=== PATIENT | female | born 1960 | race Caucasian/White ===

== ENCOUNTER → 2017-03-14 12:44 | Outpatient (CLI) | payer MEDICARE, SELFPAY ==
[2017-03-14 22:40] LABS: Alanine Aminotransferase 19 U/L (12-78); Albumin Level 4.4 gm/dL (3.4-5.0); Albumin/Globulin Ratio 1.2 (1.1-1.8); Alkaline Phosphatase 60 U/L (46-116); Anion Gap 15.3 mEq/L (5-15); Aspartate Amino Transferase 22 U/L (15-37); Bilirubin,Total 0.4 mg/dL (0.2-1.0); Blood Urea Nitrogen 15 mg/dL (7-18); Calcium 9.2 mg/dL (8.5-10.1); Carbon Dioxide 30 mmol/L (21.0-32.0); Chloride 96 mmol/L (98-107); Chol/HDL Ratio 6.6 (1-3.5); Cholesterol 225 mg/dL (140-200); Estimated Glomerular Filt Rate 75 ml/min (>60); GFR (African American) 90 ML/MIN (>60); Globulin 3.6 gm/dl (1.3-3.2); Glucose 94 mg/dL (74-106); HDL Cholesterol 34 mg/dL (29-89); LDL Cholesterol 152 mg/dL (0-130); Potassium 4.3 mmoL/L (3.5-5.1); Sodium 137 mmol/L (136-145); Triglycerides 193 mg/dL (30-200); VLDL Cholesterol 39 mg/dL (0-40)
== END ==
PROVIDERS: PCP Nurse Practitioner Family; Visit Provider Nurse Practitioner Family
DX: I10 Essential (primary) hypertension (principal); E78.2 Mixed hyperlipidemia; E55.9 Vitamin D deficiency, unspecified
CPT/HCPCS: 36415; 80053; 80061; 82652

== ENCOUNTER → 2018-04-03 15:07 | Outpatient (CLI) | payer MEDICARE, SELFPAY ==
[2018-04-03 18:09] LABS: Alanine Aminotransferase 15 U/L (12-78); Albumin Level 3.9 gm/dL (3.4-5.0); Albumin/Globulin Ratio 1.1 (1.1-1.8); Alkaline Phosphatase 65 U/L (46-116); Aspartate Amino Transferase 17 U/L (15-37); Bilirubin,Total 0.3 mg/dL (0.2-1.0); Blood Urea Nitrogen 9 mg/dL (7-18); Calcium 9.1 mg/dL (8.5-10.1); Carbon Dioxide 31 mmol/L (21.0-32.0); Chloride 99 mmol/L (98-107); Chol/HDL Ratio 7.1 (1-3.5); Cholesterol 185 mg/dL (140-200); Creatinine,Serum 0.84 mg/dL (0.55-1.02); Estimated Glomerular Filt Rate 70 ml/min (>60); GFR (African American) 85 ML/MIN (>60); Globulin 3.4 gm/dl (1.3-3.2); Glucose 83 mg/dL (74-106); HDL Cholesterol 26 mg/dL (29-89); Sodium 139 mmol/L (136-145); Total Protein,Serum 7.3 gm/dL (6.4-8.2)
[2018-04-03 18:15] LABS: Triglycerides 401 mg/dL (30-200)
[2018-04-08 09:51] LABS: Vitamin D 25 Hydroxy 16.1 ng/mL (30.0-100.0)
== END ==
PROVIDERS: Visit Provider Nurse Practitioner Family
DX: E78.2 Mixed hyperlipidemia (principal); I10 Essential (primary) hypertension; E55.9 Vitamin D deficiency, unspecified
CPT/HCPCS: 36415; 80053; 80061; 82652

== ENCOUNTER → 2018-09-26 12:42 | Outpatient (CLI) | payer MEDICARE, SELFPAY ==
--- NOTE | 2018-09-26 12:53 | MM_ITS ---
MM Dig screening mamm BI w/CAD ORDERING PHYSICIAN : Lilia Sellers APRN PATIENT AGE: 58 years GENDER: Female COMPARISON: Bilateral mammogram February 2016. Bilateral Spot views October 2016 INDICATION: Routine screening mammogram.: fu to get back on screening schedule no hormones. No new complaints. Noncontributory family history. TECHNIQUE: Standard CC and MLO images were obtained. R2 CAD reviewed. Also actually cc view bilaterally FINDINGS: Fairly Dense breast bilaterally. Dense breast tissue most evident towards upper outer quadrant bilaterally. Mammography is of decreased sensitivity in these areas of increased breast density however we see no discrete new findings.. Overall,e pattern is stable. No significant new areas concern.. No suspicious calcifications. No dominant or suspicious mass. Areas of density on one image dissipate on another in overall appears stable and similar to previous exams . Mild asymmetry pattern appears similar to prior study Bilateral follow-up in one year recommended.. IMPRESSION: ... Dense breast pattern bilaterally decreases sensitivity of mammography However breast appears stable, with no new areas of significant concern Bilateral follow-up in one year recommended . BI-RADS Category: 2 Benign Finding(s) RECOMMENDED FOLLOW-UP: 1YR 1 YEAR FOLLOW-UP (A letter has been sent to the patient regarding results of the study.)
--- NOTE | 2018-09-26 12:54 | XR_ITS ---
XR hip RT 2-3V w/pelvis HISTORY: ITS.REASON: RT HIP PAIN ORDERING PHYSICIAN: Lilia Sellers APRN PATIENT AGE: 58 years COMPARISON: None FINDINGS: No fracture or dislocation is evident. No significant degenerative change. No lytic or blastic change. Unremarkable soft tissues IMPRESSION: Negative hip
== END ==
PROVIDERS: PCP Internal Medicine Adolescent Medicine; Visit Provider Nurse Practitioner Family
DX: M25.551 Pain in right hip; Z12.31 Encounter for screening mammogram for malignant neoplasm of breast
CPT/HCPCS: 73502; 77067

== ENCOUNTER → 2019-03-24 10:13 | Outpatient (CLI) | payer MEDICARE, SELFPAY ==
[2019-03-24 11:36] LABS: Alanine Aminotransferase 12 U/L (12-78); Albumin Level 3.9 gm/dL (3.4-5.0); Albumin/Globulin Ratio 1.4 (1.1-1.8); Alkaline Phosphatase 75 U/L (46-116); Anion Gap 11.4 mEq/L (5-15); Aspartate Amino Transferase 15 U/L (15-37); Bilirubin,Total 0.3 mg/dL (0.2-1.0); Blood Urea Nitrogen 9 mg/dL (7-18); Calcium 9.1 mg/dL (8.5-10.1); Carbon Dioxide 33 mmol/L (21.0-32.0); Chloride 98 mmol/L (98-107); Cholesterol 174 mg/dL (140-200); Creatinine,Serum 0.89 mg/dL (0.55-1.02); Estimated Glomerular Filt Rate 66 ml/min (>60); GFR (African American) 79 ML/MIN (>60); Globulin 2.8 gm/dl (1.3-3.2); Glucose 102 mg/dL (74-106); HDL Cholesterol 29 mg/dL (29-89); Potassium 4.4 mmoL/L (3.5-5.1); Sodium 138 mmol/L (136-145); Total Protein,Serum 6.7 gm/dL (6.4-8.2)
[2019-03-24 11:38] LABS: Triglycerides 469 mg/dL (30-200)
[2019-03-25 11:58] LABS: Vitamin D 25 Hydroxy 25.7 ng/mL (30.0-100.0)
== END ==
PROVIDERS: Visit Provider Nurse Practitioner Family
DX: I10 Essential (primary) hypertension (principal); E78.2 Mixed hyperlipidemia; E55.9 Vitamin D deficiency, unspecified
CPT/HCPCS: 36415; 80053; 80061; 82652

== ENCOUNTER 2019-09-28 19:20 | Observation (INO) | payer MEDICARE, SELFPAY ==
[2019-09-28] VITALS (11 sets, daily range): BP systolic 95–151; BP diastolic 68–99; PULSE 85–114; RESP 15–24; TEMP 36.8–37.1; O2SAT 85–98; BMI 20.5; BMI 23.6
--- NOTE | 2019-09-28 19:38 | XR_ITS ---
PROCEDURE: XR CHEST 2V CLINICAL HISTORY: COUGH Cough, smoker COMPARISON: No exams were available for comparison FINDINGS: The cardiomediastinal silhouette and pulmonary vascularity are within normal limits. COPD changes. Faint opacities noted in the left upper lobe and may be due to summation artifact. No lobar consolidation or collapse. No acute bony abnormalities. IMPRESSION: COPD. Possible summation densities left upper lobe. Stability may be confirmed follow-up Dictated b Aleksandr Dewitt MD 09/28/2019 22:39 Aleksandr Dewitt MD in [place] 09/28/2019 22:39
--- NOTE | 2019-09-28 19:54 | PC.NURSE ---
PATIENT SENT TO ER PER ROBBIE HINSON APRN FOR FURTHER EVALUATION. OXYGEN SAT 88-89% ON RA. REPORT GIVEN TO Ileana MANUEL RN AND Ileana GRULLON RN
--- NOTE | 2019-09-28 20:03 | PC.NURSE ---
called for a duoneb at this time.
[2019-09-28 20:05] LABS: UTC Strep Screen (Rapid) Negative (Negative)
--- NOTE | 2019-09-28 20:10 | PC.NURSE ---
pt to rad at this time.
[2019-09-28 20:39] LABS: Basophils # 0.1 K/mm3 (0-0.2); Basophils % 0.8 % (0.1-2.0); Eosinophils % 0.4 % (0.1-12.0); Hematocrit 48.9 % (37.0-47.0); Hemoglobin 16.9 g/dL (12.2-16.2); Lymphocytes # 1.6 K/mm3 (0.7-4.5); Lymphocytes % 22.9 % (10-50); Mean Corpuscular HGB Conc 34.6 g/dL (31.8-35.4); Mean Corpuscular Hemoglobin 33.2 pg (27.0-31.2); Mean Corpuscular Volume 95.9 fl (81-99); Mean Platelet Volume 7.8 fl (7.4-10.4); Monocytes # 0.5 K/mm3 (0.1-1.0); Monocytes % 7.4 % (1.7-9.3); Neutrophils # 4.7 K/mm3 (1.8-7.8); Neutrophils % 68.6 % (37.0-80.0); Platelet Count 224 K/mm3 (142-424); Red Cell Distribution Width 12.8 % (11.5-17.5); White Blood Count 6.8 K/mm3 (4.8-10.8)
[2019-09-28 20:43] LABS: Chloride 92 mmol/L (98-107); Sodium 136 mmol/L (136-145)
[2019-09-28 20:45] LABS: Blood Urea Nitrogen 10 mg/dl (7-17); Creatinine Clearance Estimated 76 mL/min (50-200); Estimated Glomerular Filt Rate 86 ml/min (>60); GFR (African American) 104 ML/MIN (>60)
[2019-09-28 20:46] LABS: Alanine Aminotransferase 15 U/L (12-78); Albumin Level 4.6 g/dl (3.5-5.0); Albumin/Globulin Ratio 1.2 (1.1-1.8); Alkaline Phosphatase 58 U/L (38-126); Aspartate Amino Transferase 32 U/L (14-36); Bilirubin,Total 0.9 mg/dl (0.2-1.3); Calcium 10.2 mg/dl (8.4-10.2); Carbon Dioxide 33 mmol/L (22.0-30.0); Globulin 3.7 g/dL (1.3-3.2); Glucose 142 mg/dl (74-100); Lactic Acid 1.9 mmol/L (0.7-2.1); Total Protein,Serum 8.3 g/dl (6.3-8.2)
--- NOTE | 2019-09-28 20:48 | HMH.EDSOB ---
ED Disposition Clinical Impression: COPD (chronic obstructive pulmonary disease) with acute bronchitis Disposition: Admitted as Observation Condition on Discharge: Good Referrals: Stanislaw Welch MD [Primary Care Provider] - - Critical Care Critical Care Time: No Attestation: On 09/28/19, the high probability of a clinically significant, sudden or life threatening deterioration of the following system(s) required my full and direct attention, intervention and personal management. The time I documented below is in addition to time spent performing reported procedures but includes the following listed in this critical care notation. Medical Decision Making - Medical Records Medical records reviewed: Yes: I reviewed the patient's medical records. - G[place]a Inquiry Pt receiving controlled substance: No Vital Signs: 09/28/19 19:41 09/28/19 20:00 09/28/19 20:20 Temperature 98.8 F Temperature Source Oral Pulse Rate 107 H Pulse Rate [Left Brachial] 113 H 114 H Respiratory Rate 24 18 Blood Pressure [Left Arm] 137/77 151/99 H Blood Pressure Mean [Left Arm] 97 116 Blood Pressure Source [Left Arm] Automatic Cuff Automatic Cuff Blood Pressure Position [Left Arm] Sitting Supine 02 Sat by Pulse Oximetry 89 L 90 L Oxygen Delivery Method Room Air Nasal Cannula Oxygen Flow Rate (LPM) 3 09/28/19 20:30 09/28/19 21:00 09/28/19 21:30 Temperature Temperature Source Pulse Rate Pulse Rate [Left Brachial] 114 H 106 H 88 Respiratory Rate 17 15 18 Blood Pressure [Left Arm] 134/91 H 95/69 L 114/68 Blood Pressure Mean [Left Arm] 105 77 83 Blood Pressure Source [Left Arm] Automatic Cuff Automatic Cuff Automatic Cuff Blood Pressure Position [Left Arm] Supine Supine Supine 02 Sat by Pulse Oximetry 87 L 86 L 85 L Oxygen Delivery Method Nasal Cannula Nasal Cannula Nasal Cannula Oxygen Flow Rate (LPM) 3 3 3 09/28/19 22:00 09/28/19 22:30 Temperature Temperature Source Pulse Rate Pulse Rate [Left Brachial] 85 92 H Respiratory Rate 18 15 Blood Pressure [Left Arm] 131/77 130/84 Blood Pressure Mean [Left Arm] 95 99 Blood Pressure Source [Left Arm] Automatic Cuff Automatic Cuff Blood Pressure Position [Left Arm] Supine Supine 02 Sat by Pulse Oximetry 85 L 85 L Oxygen Delivery Method Nasal Cannula Nasal Cannula Oxygen Flow Rate (LPM) 3 3 - Lab Data Lab results reviewed: Yes: I reviewed the patient's lab results. Lab Results 09/28/19 19:38: Strep Scn Rapid Clinic Negative 09/28/19 19:47: Chlamy pneumoniae PCR Not detected, Adenovirus (PCR) Not detected, B. pertussis DNA (PCR) Not detected, Coronavirus OC43 (PCR) Not detected, Coronavirus HKU1 (PCR) Not detected, Coronavirus 229E (PCR) Not detected, COVID-19 PCR Not detected, Coronavirus NL63 (PCR) Not detected, Human Metapneumovir PCR Not detected, Influenza A (H1) PCR Not detected, Influ A (H1N1/09) PCR Not detected, Influenza A (H3) PCR Not detected, Influenza Type A (PCR) Not detected, Influenza Type B (PCR) Not detected, M. pneumoniae (PCR) Not detected, Parainfluenza 1 (PCR) Not detected, Parainfluenza 2 (PCR) Not detected, Parainfluenza 3 (PCR) Not detected, Parainfluenza 4 (PCR) Not detected, RSV (PCR) Not detected, Entero/Rhino (PCR) Detected A 09/28/19 19:50: WBC 6.8, RBC 5.10, Hgb 16.9 H, Hct 48.9 H, MCV 95.9, MCH 33.2 H, MCHC 34.6, RDW 12.8, Plt Count 224, MPV 7.8, Neut % (Auto) 68.6, Lymph % (Auto) 22.9, [place] % (Auto) 7.4, Eos % (Auto) 0.4, Baso % (Auto) 0.8, Neut # (Auto) 4.7, Lymph # (Auto) 1.6, [place] # (Auto) 0.5, Eos # (Auto) 0.0, Baso # (Auto) 0.1 09/28/19 19:50: Sodium 136, Potassium 4.0, Chloride 92 L, Carbon Dioxide 33 H, Anion Gap 15.0, BUN 10, Creatinine 0.70, Estimated Creat Clear 76, Estimated GFR 86, Est GFR ( Amer) 104, Glucose 142 H, Calcium 10.2, Total Bilirubin 0.9, AST 32, ALT 15, Alkaline Phosphatase 58, Troponin I < 0.01, Total Protein 8.3 H, Albumin 4.6, Globulin 3.7 H, Albumin/Globulin Ratio 1.2 09/28/19 19:50: Lactate 1.9 08
[2019-09-28 20:55] LABS: NT Pro Brain Natriuretic Pep. 416 pg/mL (0-125)
[2019-09-28 20:58] LABS: Adenovirus,PCR Not Detected (NotDetected); Bordetella Pertussis Not Detected (NotDetected); Chlamydophila Pneumoniae, PCR Not Detected (NotDetected); Coronavirus 19, PCR Not Detected (NotDetected); Coronavirus 229E Not Detected (NotDetected); Coronavirus NL63 Not Detected (NotDetected); Coronavirus OC43 Not Detected (NotDetected); Coronovirus HKU1,PCR Not Detected (NotDetected); Human Metapneumovirus Not Detected (NotDetected); Influenza A, PCR Not Detected (NotDetected); Influenza AH1, 2009 Not Detected (NotDetected); Influenza AH1, PCR Not Detected (NotDetected); Influenza AH3,PCR Not Detected (NotDetected); Influenza B, PCR Not Detected (NotDetected); Mycoplasma Pneumoniae, PCR Not Detected (NotDetected); Parainfluenza 1, PCR Not Detected (NotDetected); Parainfluenza 2, PCR Not Detected (NotDetected); Parainfluenza 3, PCR Not Detected (NotDetected); Parainfluenza 4, PCR Not Detected (NotDetected); Respiratory Syncytial Virus Not Detected (NotDetected)
[2019-09-28 21:02] LABS: Troponin I < 0.01 ng/ml (0.00-0.034)
--- NOTE | 2019-09-28 21:07 | ECG_ITS ---
APPROVED REPORT Exam: Resting ECG HR:96 bpm ECG Measurements Heart Rate 96 AXES AR 136 P -3 QRSd 70 QRS 47 QT 368 T 36 QTc 464 <Conclusion> Normal sinus rhythm Normal ECG Electronically signed by : Jayesh Ivey, 09/29/2019 15:00:22
[2019-09-28 21:18] LABS: Coronavirus 19 IgG Antibody Negative (Negative); Coronavirus 19 IgM Antibody Negative (Negative)
[2019-09-28 22:33] LABS: Rhinovirus/Enterovirus Detected (NotDetected)
[2019-09-28 23:36] LABS: Troponin I < 0.01 ng/ml (0.00-0.034)
--- NOTE | 2019-09-28 23:52 | PC.NURSE ---
pt headed to the floor via wheelchair
--- NOTE | 2019-09-28 23:56 | PC.NURSE ---
patient up to floor via wheelchair.
[2019-09-29] VITALS (7 sets, daily range): BP systolic 110–136; BP diastolic 61–80; PULSE 80–100; RESP 18–20; TEMP 36.4–36.7; O2SAT 82–94
[2019-09-29 03:25] LABS: Troponin I < 0.01 ng/ml (0.00-0.034)
[2019-09-29 07:16] LABS: Chloride 101 mmol/L (98-107); Potassium 4.6 mmoL/L (3.5-5.1); Sodium 137 mmol/L (136-145)
[2019-09-29 07:19] LABS: Anion Gap 9.6 mEq/L (5-15); Basophils % 0.1 % (0.1-2.0); Blood Urea Nitrogen 12 mg/dl (7-17); Carbon Dioxide 31 mmol/L (22.0-30.0); Creatinine Clearance Estimated 123 mL/min (50-200); Eosinophils % 0.5 % (0.1-12.0); Estimated Glomerular Filt Rate 127 ml/min (>60); GFR (African American) 154 ML/MIN (>60); Hematocrit 42.9 % (37.0-47.0); Lymphocytes # 0.8 K/mm3 (0.7-4.5); Lymphocytes % 18.6 % (10-50); Mean Corpuscular Hemoglobin 33.1 pg (27.0-31.2); Mean Corpuscular Volume 97.2 fl (81-99); Mean Platelet Volume 7.8 fl (7.4-10.4); Monocytes # 0.1 K/mm3 (0.1-1.0); Monocytes % 2.2 % (1.7-9.3); Neutrophils # 3.4 K/mm3 (1.8-7.8); Neutrophils % 78.4 % (37.0-80.0); Platelet Count 181 K/mm3 (142-424); Red Blood Count 4.42 M/mm3 (4.20-5.40); Red Cell Distribution Width 12.7 % (11.5-17.5); White Blood Count 4.3 K/mm3 (4.8-10.8)
[2019-09-29 07:20] LABS: Glucose 156 mg/dl (74-100); Magnesium 1.8 mg/dl (1.6-2.3)
[2019-09-29 07:23] LABS: Calcium 8.7 mg/dl (8.4-10.2)
--- NOTE | 2019-09-29 07:38 | HMH.PHAVTE ---
[facility] Pharmacy VTE Monitoring - Patient Demographics Admission date: 09/28/19 Report Date: 09/29/19 Time: 07:38 Allergies/Adverse Reactions: Patient Allergies lansoprazole [From PREVACID] Allergy (Intermediate, Verified 09/29/19 01:12) Palpitations omeprazole [From PRILOSEC] Allergy (Intermediate, Verified 09/29/19 01:12) Palpitations Height: 1.63 m Weight: 62.823 kg Patient Problems: Current Active Problems COPD (chronic obstructive pulmonary disease) with acute bronchitis (Acute) - VTE Risk Labs: VTE Related Lab Results Hgb 16.9 g/dL (12.2-16.2) H 09/28/19 19:50 Hct 48.9 % (37.0-47.0) H 09/28/19 19:50 Plt Count 224 K/mm3 (142-424) 09/28/19 19:50 BUN 12 mg/dl (7-17) 09/29/19 06:30 Creatinine 0.50 mg/dl (0.52-1.04) L D 09/29/19 06:30 Estimated Creat Clear 123 mL/min (50-200) 09/29/19 06:30 Was VTE Risk Assessment Performed: Yes VTE Score: 4 VTE Risk Level: Low Risk - Prophylaxis VTE Prophylaxis Ordered?: Yes Types of VTE Prophylaxis: TEDS Knee High Location of Applied Device: Bilateral Lower Extremeties - VTE Diagnosis Confirmed Treatment or plan recommended: Continue Current Treatment
[2019-09-29 07:43] LABS: Hemoglobin 14.6 g/dL (12.2-16.2)
--- NOTE | 2019-09-29 08:02 | HMH.HP ---
*Admission Date: 09/28/19 *Chief complaint: cough [facility] History Medical History: Denies:: Cancer, Diabetes Mellitus Type 1, Diabetes Mellitus Type 2, MRSA *Have you ever received a pneumonia vaccine?: No *Have you received a flu vaccine this season?: No Other Medical History: Reports: Arthritis, Fibromyalgia, Hypothyroidism, Thyroid Disease Other Surgeries: Yes: Cholecystectomy, Colonoscopy, EGD Amputation: No Fractures: Yes - *Social History Last grade of school completed: 11th or 12th Smoking Status: Current every day smoker Tobacco Type: cigarettes # Packs/Day (cigarettes): 1 Alcohol Intake: never *Occupational Status:: disabled *Travel in the last 8 weeks: None Family Hx:: Cancer, Coronary Artery Disease, Diabetes, Hyperlipidemia, Hypertension, Stroke, Thyroid Disorder Review of Systems - *Neurologic Denies seizure-like activity Meds Home Medications Medication Instructions Recorded Confirmed Type Bisoprolol/Hydrochlorothiazide 1 each PO DAILY 09/29/19 09/29/19 History [Bisoprolol-Hctz 5-6.25 mg Tab] Esomeprazole Magnesium 20 mg PO HS 09/29/19 09/29/19 History Hydrocodone/Acetaminophen 1 each PO QID PRN 09/29/19 09/29/19 History [Hydrocodon-Acetaminoph 7.5-325] Meclizine HCl 25 mg PO TID 09/29/19 09/29/19 History Allergies Allergy/AdvReac Type Severity Reaction Status Date / Time lansoprazole [From PREVACID] Allergy Intermediate Palpitation Verified 09/29/19 01:12 s omeprazole [From PRILOSEC] Allergy Intermediate Palpitation Verified 09/29/19 01:12 s Exam Vital signs and Labs for Last 24 Hours: Temp Pulse Resp BP Pulse Ox 98.1 F 94 H 18 110/78 93 L 09/29/19 04:00 09/29/19 06:25 09/29/19 04:00 09/29/19 04:00 09/29/19 06:25 Laboratory Results - last 24 hr 09/28/19 19:38: Strep Scn Rapid Clinic Negative 09/28/19 19:47: Chlamy pneumoniae PCR Not detected, Adenovirus (PCR) Not detected, B. pertussis DNA (PCR) Not detected, Coronavirus OC43 (PCR) Not detected, Coronavirus HKU1 (PCR) Not detected, Coronavirus 229E (PCR) Not detected, COVID-19 PCR Not detected, Coronavirus NL63 (PCR) Not detected, Human Metapneumovir PCR Not detected, Influenza A (H1) PCR Not detected, Influ A (H1N1/09) PCR Not detected, Influenza A (H3) PCR Not detected, Influenza Type A (PCR) Not detected, Influenza Type B (PCR) Not detected, M. pneumoniae (PCR) Not detected, Parainfluenza 1 (PCR) Not detected, Parainfluenza 2 (PCR) Not detected, Parainfluenza 3 (PCR) Not detected, Parainfluenza 4 (PCR) Not detected, RSV (PCR) Not detected, Entero/Rhino (PCR) Detected A 09/28/19 19:50: WBC 6.8, RBC 5.10, Hgb 16.9 H, Hct 48.9 H, MCV 95.9, MCH 33.2 H, MCHC 34.6, RDW 12.8, Plt Count 224, MPV 7.8, Neut % (Auto) 68.6, Lymph % (Auto) 22.9, [place] % (Auto) 7.4, Eos % (Auto) 0.4, Baso % (Auto) 0.8, Neut # (Auto) 4.7, Lymph # (Auto) 1.6, [place] # (Auto) 0.5, Eos # (Auto) 0.0, Baso # (Auto) 0.1 09/28/19 19:50: Sodium 136, Potassium 4.0, Chloride 92 L, Carbon Dioxide 33 H, Anion Gap 15.0, BUN 10, Creatinine 0.70, Estimated Creat Clear 76, Estimated GFR 86, Est GFR ( Amer) 104, Glucose 142 H, Calcium 10.2, Total Bilirubin 0.9, AST 32, ALT 15, Alkaline Phosphatase 58, Troponin I < 0.01, Total Protein 8.3 H, Albumin 4.6, Globulin 3.7 H, Albumin/Globulin Ratio 1.2 09/28/19 19:50: Lactate 1.9 09/28/19 19:50: SARS-CoV-2 IgG Ab (Rapid) Negative, SARS-CoV-2 IgM Ab (Rapid) Negative 09/28/19 19:50: NT-Pro-B Natriuret Pep 416 H 09/28/19 20:38: Influenza Type A Ag Negative, Influenza Type B Ag Negative 09/28/19 22:59: Troponin I < 0.01 09/29/19 02:40: Troponin I < 0.01 09/29/19 06:30: WBC 4.3 L D, RBC 4.42, Hgb 14.6 D, Hct 42.9, MCV 97.2, MCH 33.1 H, MCHC 34.0, RDW 12.7, Plt Count 181, MPV 7.8, Neut % (Auto) 78.4, Lymph % (Auto) 18.6, [place] % (Auto) 2.2, Eos % (Auto) 0.5, Baso % (Auto) 0.1, Neut # (Auto) 3.4, Lymph # (Auto) 0.8, [place] # (Auto) 0.1, Eos # (Auto) 0.0, Baso # (Auto) 0.0 09/29/19 06:30: Sodium 137, Potassium 4.6, Chloride 101, Carbon
--- NOTE | 2019-09-29 09:08 | HMH.HPDC ---
General - General Admission date:: 09/28/19 Discharge date: 09/29/19 *Admission Date: 09/28/19 *Chief complaint: Cough, shortness of breath *History of present illness: 59-year-old female with extensive smoking history, COPD, worsening shortness of breath over the past 3 to 4 days. Presented to the ER due to flulike symptoms, shortness of breath and cough. Upon presentation was found to be mildly hypoxic with saturations 87-90 on room air. Work-up showed normal chest x-ray with no focal consolidation. Tested for black virus and was found to be negative. Respiratory panel however positive for rhino/enterovirus. Of note she had several family members with similar symptoms that got sick after her. Denies any recent travel. Continues to smoke about a pack a day. Has been out of her inhalers for over a week. Admitted for antibiotics and steroids and continued oxygen need. On exam this morning she states she is feeling a little better but still tired. Continues to require oxygen with room air saturations of 86 to 87%. Tolerating regular diet. Nebulizers helping but leave a bad taste in her mouth. Denies any fever, chest pain. Reports productive cough. [facility] History Medical History: Reports:: Chronic Obstructive Pulmonary Disease (COPD) Denies:: Cancer, Diabetes Mellitus Type 1, Diabetes Mellitus Type 2, MRSA *Have you ever received a pneumonia vaccine?: No *Have you received a flu vaccine this season?: No Other Medical History: Reports: Arthritis, Fibromyalgia, Hypothyroidism, Thyroid Disease Other Surgeries: Yes: Cholecystectomy, Colonoscopy, EGD Amputation: No Fractures: Yes - *Social History Last grade of school completed: 11th or 12th Smoking Status: Current every day smoker Tobacco Type: cigarettes # Packs/Day (cigarettes): 1 Alcohol Intake: never *Occupational Status:: disabled *Travel in the last 8 weeks: None Family Hx:: Cancer, Coronary Artery Disease, Diabetes, Hyperlipidemia, Hypertension, Stroke, Thyroid Disorder Review of Systems - Review of Systems Review of systems:: pertinent systems reviewed and negative unless documented below (14 point review of systems performed, pertinent positives and negatives as per HPI) - *Neurologic Denies seizure-like activity Exam Vital signs and Labs for Last 24 Hours: Temp Pulse Resp BP Pulse Ox 97.6 F 84 19 136/61 90 L 09/29/19 08:00 09/29/19 08:00 09/29/19 08:00 09/29/19 08:00 09/29/19 08:00 Laboratory Results - last 24 hr 09/28/19 19:38: Strep Scn Rapid Clinic Negative 09/28/19 19:47: Chlamy pneumoniae PCR Not detected, Adenovirus (PCR) Not detected, B. pertussis DNA (PCR) Not detected, Coronavirus OC43 (PCR) Not detected, Coronavirus HKU1 (PCR) Not detected, Coronavirus 229E (PCR) Not detected, COVID-19 PCR Not detected, Coronavirus NL63 (PCR) Not detected, Human Metapneumovir PCR Not detected, Influenza A (H1) PCR Not detected, Influ A (H1N1/09) PCR Not detected, Influenza A (H3) PCR Not detected, Influenza Type A (PCR) Not detected, Influenza Type B (PCR) Not detected, M. pneumoniae (PCR) Not detected, Parainfluenza 1 (PCR) Not detected, Parainfluenza 2 (PCR) Not detected, Parainfluenza 3 (PCR) Not detected, Parainfluenza 4 (PCR) Not detected, RSV (PCR) Not detected, Entero/Rhino (PCR) Detected A 09/28/19 19:50: WBC 6.8, RBC 5.10, Hgb 16.9 H, Hct 48.9 H, MCV 95.9, MCH 33.2 H, MCHC 34.6, RDW 12.8, Plt Count 224, MPV 7.8, Neut % (Auto) 68.6, Lymph % (Auto) 22.9, [place] % (Auto) 7.4, Eos % (Auto) 0.4, Baso % (Auto) 0.8, Neut # (Auto) 4.7, Lymph # (Auto) 1.6, [place] # (Auto) 0.5, Eos # (Auto) 0.0, Baso # (Auto) 0.1 09/28/19 19:50: Sodium 136, Potassium 4.0, Chloride 92 L, Carbon Dioxide 33 H, Anion Gap 15.0, BUN 10, Creatinine 0.70, Estimated Creat Clear 76, Estimated GFR 86, Est GFR ( Amer) 104, Glucose 142 H, Calcium 10.2, Total Bilirubin 0.9, AST 32, ALT 15, Alkaline Phosphatase 58, Troponin I < 0.01, Total Protein 8.3 H, Albumin 4.6, Globulin 3.7 H, Albumin
--- NOTE | 2019-09-29 10:28 | SW/DCPLANNER ---
SET UP HOME 02 FOR THIS PATIENT THAT IS DISCHARGING HOME LATER IN THE AFTERNOON... HARDEEP WILL BE BRINGING A PORTABLE TANK TO GET HER HOME...
--- NOTE | 2019-09-29 11:25 | PC.NURSE ---
PT RESTING O2 SATURATION ON ROOM AIR IS 85%
--- NOTE | 2019-09-29 13:43 | HMH.PHAINT ---
DISCHARGE COUNSELING COMPLETED.
== END 2019-09-29 14:30 | disposition home or self-care (01) ==
LOC: UTC 19:43 → ER 19:51 → 2ND 09-29 00:23
PROVIDERS: Emergency Medicine; Nurse Practitioner Family; Admitting Provider Internal Medicine Adolescent Medicine; Emergency Provider Family Medicine; PCP Internal Medicine Adolescent Medicine; Visit Provider Internal Medicine Adolescent Medicine
DX: J44.1 Chronic obstructive pulmonary disease with (acute) exacerbation (principal); J20.6 Acute bronchitis due to rhinovirus; J44.0 Chronic obstructive pulmonary disease with (acute) lower respiratory infection; Z99.81 Dependence on supplemental oxygen; Z72.0 Tobacco use
CPT/HCPCS: 36415; 71046; 80048; 80053; 83605; 83735; 83880; 84484; 85025; 86328; 87040; 87070; 87205; 87275; 87276; 87581; 87633; 87798; 87880; 93005; 94640; 96365; 96375; 99285; G0378; J1956

== ENCOUNTER → 2019-11-27 16:16 | Outpatient (CLI) | payer MEDICARE, SELFPAY ==
--- NOTE | 2019-11-27 16:21 | CA_ITS ---
APPROVED REPORT Retail Director: Kajal Da Silva RVT Indications Leg Pain Bruit PT C/O PAIN LT GROIN AND A PALPABLE KNOT X 2 WKS, HEARD BRUIT, NO TRAUMA/INVASIVE PROCEDURES TO AREA Risk Factors Current Smoker Findings Groin: Left Negative Study of left groin is negative for pseudoaneurysm or av fistula. Conclusion Study of left groin is negative for pseudoaneurysm or av fistula. Results called to Dr Joshi 11/27/19 @16:40. Electronically signed by : Aleksandr Dewitt MD 11/27/2019 17:29:25
== END ==
PROVIDERS: PCP Emergency Medicine; Visit Provider Emergency Medicine
DX: R10.30 Lower abdominal pain, unspecified (principal); R09.89 Other specified symptoms and signs involving the circulatory and respiratory systems
CPT/HCPCS: 93926

== ENCOUNTER → 2019-12-08 08:52 | Outpatient (CLI) | payer MEDICARE, SELFPAY ==
--- NOTE | 2019-12-08 09:02 | MM_ITS ---
PROCEDURE: MM DIG SCREENING MAMM BI W/CAD Digital Breast Tomosynthesis Included CLINICAL INDICATION: cancer screening There is no personal or family history of breast cancer. COMPARISON: MG DMSB DIG MAMM-SCREEN [place] W/CAD from 02/23/2016 MG DMBAV DIG MAMM- [place] ADD VIEWS W/CAD from 10/19/2016 MG DIG MAMM-SCREEN [place] from 09/26/2018 TECHNIQUE: Standard CC and MLO images and 3D Tomosynthesis was obtained. R2 CAD reviewed. FINDINGS: Moderately prominent diffuse fibroglandular densities are seen in both breasts. There is a benign-appearing microcalcification near the nipple right breast. There is no suspicious lesion and no suspicious microcalcifications. IMPRESSION: Moderate diffuse breast density with no suspicious lesions seen BI-RAD Category: 2 Benign Finding(s) FOLLOW-UP: 1YR 1 Year Follow-up (A letter has been sent to the patient regarding results of the study.) Dictated by: Dr. Joselito Chau MD 12/08/2019 11:50 Dr. Joselito Chau MD in [place] 12/08/2019 11:50
--- NOTE | 2019-12-08 09:02 | CT_ITS ---
PROCEDURE: CT ABDOMEN PELVIS WO/W CON CLINICAL INDICATION: left groin pain with palpable lump COMPARISON: CT ABDPELW/O CT ABD PELVIS W/O CONTRAST from 06/15/2016 TECHNIQUE: IV Contrast: 75ML OPTIRAY 350 Oral Contrast none given Axial images obtained with sagittal and coronal reformats. All CT scans at the facility use one or more dose reduction, viz: automated exposure control, ma/kV adjustment per patient size (including targeted exams where dose is matched to indication, i.e. head), or iterative reconstruction technique. FINDINGS: Lower thorax: The lower lung rowan are clear of infiltrate and there is no pleural fluid. There is a calcified granuloma left posterior gutter. ABDOMEN: Liver: No masses or biliary dilatation. Gallbladder: Nondistended. No radio opaque stones. Pancreas: No masses or peripancreatic fluid collections. Spleen: Normal in size, there are few calcified granulomata Adrenals: unremarkable Kidneys/ureters: The kidneys are normal in size and no calculi and there is no obstructive uropathy. ABDOMEN & PELVIS: Stomach bowel: The stomach and duodenal sweep appear normal. The small bowel is unremarkable. There is moderate scattered stool and gas seen throughout the colon. Peritoneum: No abnormal fluid collections. No obvious inflammatory changes. No free air. Lymph nodes: A tiny metallic is seen in the left groin at the site of the patient's complaint. The underlying femoral artery and vein appear normal and comparable to the right side. There is a borderline enlarged fatty replaced node left inguinal location. This was seen on the previous study but has shown slight interval enlargement. It measures 2 cm in greatest long axis diameter. There are no surrounding inflammatory changes. There is no abnormal left inguinal mass or inguinal hernia. Vasculature: There is prominent diffuse arthrosclerotic calcification of the infrarenal aorta and proximal common iliac arteries but there is no aneurysm. Bones: No acute fracture PELVIS: Reproductive: unremarkable the uterus is somewhat small but in the midline Bladder: Bladder is decompressed, there is no free fluid in the pelvis. Appendix: Not definitely visualized but there are no findings to suggest appendicitis. IMPRESSION: Possible borderline enlarged fatty replaced node left inguinal region of doubtful clinical significance no other significant abdominal or pelvic pathology identified Dictated by: Dr. Joselito Chau MD 12/08/2019 11:19 Dr. Joselito Chau MD in [place] 12/08/2019 11:19
[2019-12-08 09:14] LABS: Blood Urea Nitrogen 5 mg/dl (7-17); Estimated Glomerular Filt Rate 86 ml/min (>60); GFR (African American) 104 ML/MIN (>60)
--- NOTE | 2019-12-08 11:08 | US_ITS ---
APPROVED REPORT Exam Type: Lower Extremity Segmental Pressures Cleaner Furniture: Kajal Da Silva RVT Indications Claudication: Bilaterally Rest Pain: Bilaterally Current Smoker claudication lenny Risk Factors Hyperlipidemia Current Smoker Pressures/Indices Right Indices Left Indices Brachial 162.00 mmHg Brachial 157.00 mmHg Low Thigh 81.00 mmHg 0.50 Low Thigh 139.00 mmHg 0.86 Calf 92.00 mmHg 0.57 Calf 149.00 mmHg 0.92 Ankle(PT) 93.00 mmHg 0.57 Ankle(PT) 164.00 mmHg 1.01 Ankle(DP) 84.00 mmHg 0.52 Ankle(DP) 162.00 mmHg 1.00 Digit 69.00 mmHg 0.43 Digit 123.00 mmHg 0.76 Findings RT MEGAN:0.57 LT MEGAN:1.01 RT TBI:0.43 LT TBI:0.76 DECREASED PULSES ON THE RIGHT ,LEFT IS NORMAL DAMPENED PULSES ON THE RIGHT ,LEFT IS NORMAL Conclusion RT MEGAN:0.57 LT MEGAN:1.01 RT TBI:0.43 LT TBI:0.76 DECREASED PULSES ON THE RIGHT ,LEFT IS NORMAL DAMPENED PULSES ON THE RIGHT ,LEFT IS NORMAL MODERATE RT ARTERIAL DISEASE Critical Notification Critical Value: Yes Physician Notified Date: 12/08/2019 Time: 13:18 Physician Name: Mario Joshi's office Electronically signed by : Aleksandr Dewitt MD 12/08/2019 15:41:05
== END ==
PROVIDERS: PCP Emergency Medicine; Visit Provider Emergency Medicine
DX: Z12.31 Encounter for screening mammogram for malignant neoplasm of breast (principal); R10.30 Lower abdominal pain, unspecified; R19.09 Other intra-abdominal and pelvic swelling, mass and lump; R09.89 Other specified symptoms and signs involving the circulatory and respiratory systems
CPT/HCPCS: 36415; 74178; 77063; 77067; 82565; 84520; 93923; Q9967

== ENCOUNTER → 2020-01-07 13:36 | Outpatient (CLI) | payer MEDICARE, SELFPAY ==
--- NOTE | 2020-01-07 13:37 | MR_ITS ---
PROCEDURE: MR LUMBAR SPINE WO CON CLINICAL INDICATION: back pain Pt c/o lbp with bilateral leg pain and numbness with rt being worse. COMPARISON: CT CT ABDOMEN PELVIS WO/W CON from 12/08/2019 TECHNIQUE: Standard multiplanar multiecho sequences are performed without contrast. 3-D MIP and myelographic images are also rendered and reviewed FINDINGS: There is normal alignment. The spinal cord ends at the L1 level. T11-T12: Mild degenerative disc disease. T12-L1: Unremarkable. L1-L2: Unremarkable. L2-L3: There is a 12 by 10 by 6 mm area T2 I so intensity in the left paracentral and foraminal region along the lower aspect of L2 which extends from the disc space consistent with is a superior extruded herniated disc. This is causing left-sided lateral recess and foraminal narrowing and abutting the left L3 nerve root L3-L4: Mild bulging disc which is somewhat eccentric toward the left and the left foraminal and lateral region associated with facet and ligamentum hypertrophy with left lateral recess and foraminal narrowing. L4-5: Mild concentric bulging disc with facet and ligamentum hypertrophy causing mild bilateral lateral recess and foraminal narrowing. L5-S1: The degenerative disc disease with bulging disc with a small broad-based central/left paracentral disc protrusion abutting the left S1 nerve root. There is facet and ligamentum hypertrophy. IMPRESSION: 1. L2-L3: There is a 12 by 10 by 6 mm area T2 I so intensity in the left paracentral and foraminal region along the lower aspect of L2 which extends from the disc space consistent with is a superior extruded herniated disc. This is causing left-sided lateral recess and foraminal narrowing and abutting the left L3 nerve root 2. L3-L4: Mild bulging disc which is somewhat eccentric toward the left and the left foraminal and lateral region associated with facet and ligamentum hypertrophy with left lateral recess and foraminal narrowing. 3. L4-5: Mild concentric bulging disc with facet and ligamentum hypertrophy causing mild bilateral lateral recess and foraminal narrowing. 4. L5-S1: The degenerative disc disease with bulging disc with a small broad-based central/left paracentral disc protrusion abutting the left S1 nerve root. There is facet and ligamentum hypertrophy. Dictated by: Aleksandr Dewitt MD 01/08/2020 09:35 Aleksandr Dewitt MD in [place] 01/08/2020 09:35
== END ==
PROVIDERS: PCP Emergency Medicine; Visit Provider Emergency Medicine
DX: M54.5 Low back pain (principal)
CPT/HCPCS: 72148; 76376

== ENCOUNTER → 2020-03-14 17:20 | Outpatient (CLI) | payer MEDICARE, SELFPAY ==
[2020-03-14 19:52] LABS: Barbiturates Screen,Urine Negative ng/ml (<200); Benzodiazepines Screen,Urine Negative ng/ml (<200)
[2020-03-14 19:53] LABS: Amphetamine/Metha Screen,Urine Negative ng/ml (<1000)
[2020-03-14 19:54] LABS: Cannabinoid Screen,Urine Negative ng/ml (<50); Cocaine Screen,Urine Negative ng/ml (<300)
[2020-03-14 19:55] LABS: Methadone Screen,Urine Negative ng/ml (<300)
[2020-03-14 19:56] LABS: Opiate Screen,Urine Positive ng/ml (<300); Phencyclidine Screen,Urine Negative ng/ml (<25)
== END ==
PROVIDERS: Visit Provider Emergency Medicine
DX: Z79.899 Other long term (current) drug therapy (principal)
CPT/HCPCS: 80305

== ENCOUNTER → 2020-05-10 15:57 | Outpatient (CLI) | payer MEDICARE, SELFPAY ==
[2020-05-10 16:26] LABS: Amphetamine/Metha Screen,Urine Negative ng/ml (<1000)
[2020-05-10 16:27] LABS: Barbiturates Screen,Urine Negative ng/ml (<200); Benzodiazepines Screen,Urine Negative ng/ml (<200)
[2020-05-10 16:28] LABS: Cannabinoid Screen,Urine Negative ng/ml (<50)
[2020-05-10 16:29] LABS: Cocaine Screen,Urine Negative ng/ml (<300); Methadone Screen,Urine Negative ng/ml (<300)
[2020-05-10 16:30] LABS: Opiate Screen,Urine Positive ng/ml (<300); Phencyclidine Screen,Urine Negative ng/ml (<25)
== END ==
PROVIDERS: Visit Provider Emergency Medicine
DX: M51.16 Intervertebral disc disorders with radiculopathy, lumbar region (principal)
CPT/HCPCS: 80305

== ENCOUNTER → 2020-08-30 18:12 | Outpatient (CLI) | payer MEDICARE, SELFPAY ==
[2020-08-30 19:44] LABS: Amphetamine/Metha Screen,Urine Negative ng/ml (<1000); Barbiturates Screen,Urine Negative ng/ml (<200)
[2020-08-30 19:46] LABS: Benzodiazepines Screen,Urine Negative ng/ml (<200); Cannabinoid Screen,Urine Negative ng/ml (<50)
[2020-08-30 19:47] LABS: Cocaine Screen,Urine Negative ng/ml (<300)
[2020-08-30 19:48] LABS: Methadone Screen,Urine Negative ng/ml (<300); Opiate Screen,Urine Positive ng/ml (<300)
[2020-08-30 19:49] LABS: Phencyclidine Screen,Urine Negative ng/ml (<25)
== END ==
PROVIDERS: Visit Provider Emergency Medicine
DX: M51.16 Intervertebral disc disorders with radiculopathy, lumbar region (principal)
CPT/HCPCS: 80305

== ENCOUNTER → 2020-10-28 17:14 | Outpatient (CLI) | payer MEDICARE, SELFPAY ==
[2020-10-28 19:19] LABS: Benzodiazepines Screen,Urine Negative ng/ml (<200)
[2020-10-28 19:20] LABS: Amphetamine/Metha Screen,Urine Negative ng/ml (<1000)
[2020-10-28 19:21] LABS: Barbiturates Screen,Urine Negative ng/ml (<200); Methadone Screen,Urine Negative ng/ml (<300)
[2020-10-28 19:22] LABS: Cannabinoid Screen,Urine Negative ng/ml (<50)
[2020-10-28 19:23] LABS: Cocaine Screen,Urine Negative ng/ml (<300); Opiate Screen,Urine Negative ng/ml (<300)
[2020-10-28 19:24] LABS: Phencyclidine Screen,Urine Negative ng/ml (<25)
== END ==
PROVIDERS: Visit Provider Emergency Medicine
DX: M51.16 Intervertebral disc disorders with radiculopathy, lumbar region (principal)
CPT/HCPCS: 80305

== ENCOUNTER → 2020-12-23 14:54 | Outpatient (CLI) | payer MEDICARE, SELFPAY ==
[2020-12-23 17:32] LABS: Amphetamine/Metha Screen,Urine Negative ng/ml (<1000); Barbiturates Screen,Urine Negative ng/ml (<200)
[2020-12-23 17:33] LABS: Benzodiazepines Screen,Urine Negative ng/ml (<200)
[2020-12-23 17:34] LABS: Cannabinoid Screen,Urine Negative ng/ml (<50); Cocaine Screen,Urine Negative ng/ml (<300)
[2020-12-23 17:35] LABS: Methadone Screen,Urine Negative ng/ml (<300); Opiate Screen,Urine Positive ng/ml (<300)
[2020-12-23 17:36] LABS: Phencyclidine Screen,Urine Negative ng/ml (<25)
== END ==
PROVIDERS: Visit Provider Emergency Medicine
DX: M51.16 Intervertebral disc disorders with radiculopathy, lumbar region (principal)
CPT/HCPCS: 80305

== ENCOUNTER → 2021-03-28 16:00 | Outpatient (CLI) | payer MEDICARE, SELFPAY ==
[2021-03-28 16:43] LABS: Basophils # 0.1 K/mm3 (0-0.2); Eosinophils # 0.1 K/mm3 (0.0-0.4); Eosinophils % 1.4 % (0.1-12.0); Hematocrit 48.3 % (37.0-47.0); Hemoglobin 15.4 g/dL (12.2-16.2); Lymphocytes # 1.9 K/mm3 (0.7-4.5); Lymphocytes % 35.3 % (10-50); Mean Corpuscular HGB Conc 31.9 g/dL (31.8-35.4); Mean Corpuscular Hemoglobin 32.2 pg (27.0-31.2); Mean Corpuscular Volume 101.2 fl (81-99); Monocytes # 0.4 K/mm3 (0.1-1.0); Monocytes % 6.9 % (1.7-9.3); Neutrophils % 55.4 % (37.0-80.0); Platelet Count 228 K/mm3 (142-424); Red Blood Count 4.77 M/mm3 (4.20-5.40); Red Cell Distribution Width 13.7 % (11.5-17.5); White Blood Count 5.4 K/mm3 (4.8-10.8)
[2021-03-28 17:14] LABS: Alanine Aminotransferase 6 U/L (12-78); Albumin Level 4.2 g/dl (3.5-5.0); Albumin/Globulin Ratio 1.6 (1.1-1.8); Alkaline Phosphatase 68 U/L (38-126); Anion Gap 9.9 mEq/L (5-15); Aspartate Amino Transferase 26 U/L (14-36); Bilirubin,Total 0.4 mg/dl (0.2-1.3); Blood Urea Nitrogen 5 mg/dl (7-17); Calcium 9.1 mg/dl (8.4-10.2); Carbon Dioxide 34 mmol/L (22.0-30.0); Chloride 98 mmol/L (98-107); Chol/HDL Ratio 6.8 (1-3.5); Cholesterol 184 mg/dl (140-200); Estimated Glomerular Filt Rate 103 ml/min (>60); GFR (African American) 124 ML/MIN (>60); Globulin 2.7 g/dL (1.3-3.2); Glucose 90 mg/dl (74-100); HDL Cholesterol 27 mg/dl (40-60); Potassium 3.9 mmoL/L (3.5-5.1); Sodium 138 mmol/L (136-145); Total Protein,Serum 6.9 g/dl (6.3-8.2); Triglycerides 381 mg/dl (30-150); VLDL Cholesterol 76 mg/dL (0-40)
[2021-03-28 17:26] LABS: Direct LDL Cholesterol 93.58 mg/dL (100-129)
[2021-03-28 17:38] LABS: 25-OH Vitamin D, Total < 12.8 ng/mL (30-100)
[2021-03-28 17:44] LABS: Thyroid Stimulating Hormone 6.22 uIU/mL (0.465-4.68)
[2021-03-28 19:05] LABS: Barbiturates Screen,Urine Negative ng/ml (<200); Benzodiazepines Screen,Urine Negative ng/ml (<200)
[2021-03-28 19:06] LABS: Amphetamine/Metha Screen,Urine Negative ng/ml (<1000)
[2021-03-28 19:07] LABS: Cannabinoid Screen,Urine Negative ng/ml (<50); Cocaine Screen,Urine Negative ng/ml (<300)
[2021-03-28 19:08] LABS: Methadone Screen,Urine Negative ng/ml (<300); Opiate Screen,Urine Positive ng/ml (<300)
[2021-03-28 19:09] LABS: Phencyclidine Screen,Urine Negative ng/ml (<25)
== END ==
PROVIDERS: Visit Provider Emergency Medicine
DX: R06.00 Dyspnea, unspecified (principal); I10 Essential (primary) hypertension; M51.16 Intervertebral disc disorders with radiculopathy, lumbar region; E55.9 Vitamin D deficiency, unspecified
CPT/HCPCS: 80053; 80061; 80305; 82306; 84439; 84443; 85025

== ENCOUNTER → 2021-05-22 15:53 | Outpatient (CLI) | payer MEDICARE, SELFPAY ==
[2021-05-22 13:44] LABS: Amphetamine/Metha Screen,Urine Negative ng/ml (<1000); Barbiturates Screen,Urine Negative ng/ml (<200)
[2021-05-22 13:45] LABS: Benzodiazepines Screen,Urine Negative ng/ml (<200)
[2021-05-22 13:46] LABS: Cannabinoid Screen,Urine Negative ng/ml (<50); Cocaine Screen,Urine Negative ng/ml (<300)
[2021-05-22 13:47] LABS: Methadone Screen,Urine Negative ng/ml (<300)
[2021-05-22 13:48] LABS: Opiate Screen,Urine Positive ng/ml (<300)
[2021-05-22 13:49] LABS: Phencyclidine Screen,Urine Negative ng/ml (<25)
== END ==
PROVIDERS: Visit Provider Emergency Medicine
DX: M51.16 Intervertebral disc disorders with radiculopathy, lumbar region (principal)
CPT/HCPCS: 80305

== ENCOUNTER → 2021-07-18 14:19 | Outpatient (CLI) | payer MEDICARE, SELFPAY ==
[2021-07-18 14:00] LABS: Phencyclidine Screen,Urine Negative ng/ml (<25)
[2021-07-18 14:06] LABS: Barbiturates Screen,Urine Negative ng/ml (<200)
[2021-07-18 14:07] LABS: Amphetamine/Metha Screen,Urine Negative ng/ml (<1000); Benzodiazepines Screen,Urine Negative ng/ml (<200)
[2021-07-18 14:08] LABS: Cannabinoid Screen,Urine Negative ng/ml (<50)
[2021-07-18 14:10] LABS: Opiate Screen,Urine Negative ng/ml (<300)
[2021-07-18 14:11] LABS: Cocaine Screen,Urine Negative ng/ml (<300)
[2021-07-18 14:12] LABS: Methadone Screen,Urine Negative ng/ml (<300)
== END ==
PROVIDERS: PCP Emergency Medicine; Visit Provider Emergency Medicine
DX: M51.16 Intervertebral disc disorders with radiculopathy, lumbar region (principal)
CPT/HCPCS: 80305

== ENCOUNTER → 2021-08-15 07:18 | Outpatient (CLI) | payer MEDICARE, SELFPAY ==
[2021-08-14 19:29] LABS: Amphetamine/Metha Screen,Urine Negative ng/ml (<1000)
[2021-08-14 19:33] LABS: Barbiturates Screen,Urine Negative ng/ml (<200); Benzodiazepines Screen,Urine Negative ng/ml (<200)
[2021-08-14 19:34] LABS: Cannabinoid Screen,Urine Negative ng/ml (<50); Cocaine Screen,Urine Negative ng/ml (<300)
[2021-08-14 19:35] LABS: Methadone Screen,Urine Negative ng/ml (<300)
[2021-08-14 19:36] LABS: Opiate Screen,Urine Positive ng/ml (<300); Phencyclidine Screen,Urine Negative ng/ml (<25)
== END ==
PROVIDERS: PCP Emergency Medicine; Visit Provider Emergency Medicine
DX: M51.16 Intervertebral disc disorders with radiculopathy, lumbar region (principal)
CPT/HCPCS: 80305

== ENCOUNTER 2021-08-22 09:17 | Day surgery (SDC) | payer MEDICARE, SELFPAY ==
[2021-08-22] VITALS (9 sets, daily range): BP systolic 91–187; BP diastolic 58–114; PULSE 80–96; RESP 18; TEMP 36.3; O2SAT 94–99; BMI 25.0
--- NOTE | 2021-08-22 07:01 | IR_ITS ---
APPROVED REPORT Patient Location: Outpatient Manual Qa Tester: JOHANA Arriola RT (R) PROCEDURES Left femoral arterial access Catheter placed in the abdominal aorta Abdominal aortography with bilateral iliofemoral angiography Bare-metal stent deployment to the chronically occluded right common iliac artery Bare-metal stent deployment to the right external iliac artery INDICATION Occluded right common iliac artery, MEGAN 0.5 right leg, Peripheral artery disease, [place] claudication class III Informed consent was obtained prior to the procedure. COMPLICATIONS NONE Estimated Blood Loss: LESS THAN 10 ML TECHNIQUE 1% lidocaine used to anesthetize the left femoral groin. The left femoral artery was accessed via the Seldinger technique. 5 Burmese sheath was placed in the left femoral artery. Using fluoroscopic guidance an advantage wire was placed in the distal abdominal aorta followed by a pigtail catheter. Angiography was performed. Following this 1% lidocaine was used to anesthetize the right groin and the right femoral arteries accessed via Salinger technique. 6 Burmese sheath was placed in the right femoral artery. An advantage wire was used to push through the chronic occlusion in a retrograde manner after therapeutic heparin was administered. Following this a 7 mm x 60 mm balloon was used to predilate the stenosis. An 8 mm x 57 mm balloon mounted stent was deployed at nominal pressure reducing the 100% occlusion to 0%. An additional 8 mm x 60 mm self-expanding stent was placed distal to this extending into the right external iliac artery to further severe atheromatous plaque. After achieving excellent angiographic results with wide patency of the chronically occluded iliac artery the apparatus was removed both groins were reprepped closure changed right femoral sheath was removed with good hemostasis being achieved using Perclose device. This procedure was repeated on the left also achieving excellent hemostasis. Patient was transferred to the postop putting in stable condition ANGIOGRAPHIC RESULTS The infrarenal abdominal aorta has an eccentric 50% plaque followed by additional 20% atheromatous plaque. Right common iliac artery is proximally occluded and reconstitutes via collaterals into the right external iliac artery which is also moderate to severely diseased. The right internal iliac artery is widely patent. Left common iliac artery is patent has mild atheromatous plaque. The left internal iliac artery is patent as is the left external iliac artery. Bilateral common femoral arteries are patent IMPRESSION Chronically occluded right common iliac artery with successful percutaneous revascularization reducing 1% occlusion to 0% with 2 bare-metal stents, 1 being a bare metal balloon mounted stent while the other is a self-expanding metal stent PLAN 1. Xarelto 2.5 p.o. twice daily plus aspirin 81 mg daily 2. LDL less than 55 to be achieved with high intensity statin 3. Physical therapy 4. Avoidance of tobacco products 5. Vascular risk factor modification Electronically signed by : Khanh Dougherty MD 08/22/2021 13:52:44
[2021-08-22 09:41] LABS: Coronavirus 19, PCR Not Detected (NotDetected); Influenza A, PCR Not Detected (NotDetected); Influenza B, PCR Not Detected (NotDetected)
[2021-08-22 09:58] LABS: Basophils % 0.4 % (0.1-2.0); Eosinophils # 0.1 K/mm3 (0.0-0.4); Eosinophils % 1.5 % (0.1-12.0); Hematocrit 44.9 % (37.0-47.0); Hemoglobin 15.5 g/dL (12.2-16.2); Lymphocytes # 1.5 K/mm3 (0.7-4.5); Lymphocytes % 31.1 % (10-50); Mean Corpuscular HGB Conc 34.6 g/dL (31.8-35.4); Mean Corpuscular Hemoglobin 33.3 pg (27.0-31.2); Mean Corpuscular Volume 96.2 fl (81-99); Mean Platelet Volume 7.1 fl (7.4-10.4); Monocytes # 0.4 K/mm3 (0.1-1.0); Monocytes % 8.6 % (1.7-9.3); Neutrophils # 2.9 K/mm3 (1.8-7.8); Neutrophils % 58.4 % (37.0-80.0); Platelet Count 187 K/mm3 (142-424); Red Blood Count 4.67 M/mm3 (4.20-5.40); Red Cell Distribution Width 12.7 % (11.5-17.5); White Blood Count 4.9 K/mm3 (4.8-10.8)
[2021-08-22 10:07] LABS: Chloride 98 mmol/L (98-107); Potassium 4.2 mmoL/L (3.5-5.1); Sodium 138 mmol/L (136-145)
[2021-08-22 10:10] LABS: Anion Gap 8.2 mEq/L (5-15); Blood Urea Nitrogen 6 mg/dl (7-17); Calcium 9.2 mg/dl (8.4-10.2); Carbon Dioxide 36 mmol/L (22.0-30.0); Creatinine Clearance Estimated 128 mL/min (50-200); Estimated Glomerular Filt Rate 127 ml/min (>60); GFR (African American) 153 ML/MIN (>60); Glucose 120 mg/dl (74-100)
[2021-08-22 14:15] LABS: CATHL Activated Clotting Time 276 SEC (74-125)
--- NOTE | 2021-08-22 15:13 | HMH.PHACLD ---
Gina Eckert has received discharge medication counseling on the following medications: PATIENT HAD PERIPHERAL STENTING. PATIENT HAS CLOPIDOGREL 75 MG DAILY AND ASPIRIN 81 MG DAILY. SCRIPT CALLED IN FOR LIPITOR 40 MG HS BUT PATIENT INDICATED SHE DOES NOT DO WELL WITH STATINS DUE TO FIBROMYALGIA.
== END 2021-08-22 15:07 | disposition home or self-care (01) ==
PROVIDERS: PCP Emergency Medicine; Visit Provider Internal Medicine
DX: R42 Dizziness and giddiness (principal); I77.1 Stricture of artery; I74.5 Embolism and thrombosis of iliac artery; I10 Essential (primary) hypertension; J20.9 Acute bronchitis, unspecified; I70.213 Atherosclerosis of native arteries of extremities with intermittent claudication, bilateral legs; J44.0 Chronic obstructive pulmonary disease with (acute) lower respiratory infection; Z79.01 Long term (current) use of anticoagulants; F17.210 Nicotine dependence, cigarettes, uncomplicated; Z79.899 Other long term (current) drug therapy; Z20.822 Contact with and (suspected) exposure to COVID-19
CPT/HCPCS: 36415; 37221; 37223; 80048; 85025; 85347; 99152; 99153; C1725; C1760; C1769; C1876; C1894; C9803; J1644; Q9966; U0003; U0005

== ENCOUNTER → 2021-10-11 18:09 | Outpatient (CLI) | payer MEDICARE, SELFPAY ==
[2021-10-11 15:32] LABS: Benzodiazepines Screen,Urine Negative ng/ml (<200)
[2021-10-11 15:33] LABS: Amphetamine/Metha Screen,Urine Negative ng/ml (<1000)
[2021-10-11 15:34] LABS: Barbiturates Screen,Urine Negative ng/ml (<200); Cannabinoid Screen,Urine Negative ng/ml (<50)
[2021-10-11 15:35] LABS: Cocaine Screen,Urine Negative ng/ml (<300); Methadone Screen,Urine Negative ng/ml (<300)
[2021-10-11 15:36] LABS: Opiate Screen,Urine Negative ng/ml (<300)
[2021-10-11 15:37] LABS: Phencyclidine Screen,Urine Negative ng/ml (<25)
== END ==
PROVIDERS: PCP Emergency Medicine; Visit Provider Emergency Medicine
DX: M51.16 Intervertebral disc disorders with radiculopathy, lumbar region (principal)
CPT/HCPCS: 80305

== ENCOUNTER → 2022-01-10 11:18 | Outpatient (CLI) | payer MEDICARE, SELFPAY ==
[2022-01-10 14:26] LABS: Barbiturates Screen,Urine Negative ng/ml (<200)
[2022-01-10 14:27] LABS: Amphetamine/Metha Screen,Urine Negative ng/ml (<1000); Benzodiazepines Screen,Urine Negative ng/ml (<200)
[2022-01-10 14:28] LABS: Methadone Screen,Urine Negative ng/ml (<300)
[2022-01-10 14:29] LABS: Cannabinoid Screen,Urine Negative ng/ml (<50); Cocaine Screen,Urine Negative ng/ml (<300)
[2022-01-10 14:30] LABS: Opiate Screen,Urine Positive ng/ml (<300)
[2022-01-10 14:31] LABS: Phencyclidine Screen,Urine Negative ng/ml (<25)
== END ==
PROVIDERS: PCP Emergency Medicine; Visit Provider Emergency Medicine
DX: M51.16 Intervertebral disc disorders with radiculopathy, lumbar region (principal)
CPT/HCPCS: 80305

== ENCOUNTER 2022-02-26 01:14 | Inpatient (IN) | payer MEDICARE, SELFPAY ==
[2022-02-26] VITALS (29 sets, daily range): BP systolic 126–161; BP diastolic 70–94; PULSE 59–121; RESP 15–24; TEMP 36.7–37.2; O2SAT 77–96; BMI 22.6; BMI 23.1
--- NOTE | 2022-02-26 01:28 | XR_ITS ---
PROCEDURE INFORMATION: Exam: XR Chest Exam date and time: 02/26/2022 1:54 AM Age: 61 years old Clinical indication: Cough and fever; Additional info: SOA TECHNIQUE: Imaging protocol: Radiologic exam of the chest. Views: 1 view. COMPARISON: CR XR CHEST 2V 09/28/2019 8:02 PM FINDINGS: Lungs: There has been interval development of mild diffuse pulmonary interstitial prominence as well as mild patchy airspace disease in the bilateral lower lungs compatible with active pneumonitis. Pleural spaces: Unremarkable. No pleural effusion. No pneumothorax. Heart/Mediastinum: Unremarkable. No cardiomegaly. Bones/joints: Unremarkable. IMPRESSION: Bilateral lower lobe predominant pulmonary infiltrates suggesting nonspecific active pneumonitis
--- NOTE | 2022-02-26 01:28 | CT_ITS ---
PROCEDURE INFORMATION: Exam: CTA Chest With Contrast Exam date and time: 02/26/2022 3:18 AM Age: 61 years old Clinical indication: Dyspnea and fever; Additional info: SOA TECHNIQUE: Imaging protocol: Computed tomographic angiography of the chest with contrast. 3D rendering (Not supervised by radiologist): MIP and/or 3D reconstructed images were created by the technologist. Radiation optimization: All CT scans at this facility use at least one of these dose optimization techniques: automated exposure control; mA and/or kV adjustment per patient size (includes targeted exams where dose is matched to clinical indication); or iterative reconstruction. Contrast material: ISOVUE; Contrast volume: 70 ml; Contrast route: INTRAVENOUS (IV); COMPARISON: CR XR CHEST PORTABLE 02/26/2022 1:54 AM FINDINGS: Pulmonary arteries: No pulmonary emboli are identified. Aorta: Unremarkable. No aortic aneurysm. No aortic dissection. Lungs: Extensive tree-in-bud inflammatory changes seen bilaterally, with patchy ground-glass opacities predominantly in the upper lobes. Pleural spaces: Unremarkable. No pneumothorax. No pleural effusion. Heart: Unremarkable. No cardiomegaly. No pericardial effusion. Coronary arteries: Severe coronary artery calcifications. Lymph nodes: Unremarkable. No enlarged lymph nodes. Bones/joints: Unremarkable. No acute fracture. Soft tissues: Unremarkable. IMPRESSION: 1. No pulmonary emboli are identified. 2. Extensive tree-in-bud inflammatory changes seen bilaterally, with patchy ground-glass opacities predominantly in the upper lobes. Favor atypical infectious/inflammatory process. 3. Severe coronary artery calcifications.
--- NOTE | 2022-02-26 01:30 | ECG_ITS ---
APPROVED REPORT Exam: Resting ECG HR:105 bpm ECG Measurements Heart Rate 105 AXES OR 142 P 74 QRSd 77 QRS 72 QT 333 T 37 QTc 394 Conclusion SINUS TACHYCARDIA ABNORMAL RHYTHM ECG UNCONFIRMED REPORT Electronically signed by : Julito Edmondson MD 02/26/2022 19:23:58
[2022-02-26 01:45] LABS: ABG HCO3 39.9 mmhg (22.0-26.0); ABG Oxygen Saturation 76 % (90-100)
[2022-02-26 01:48] LABS: ABG PCO2 66.7 mmhg (35.0-45.0); ABG PO2 40.7 mmhg (80-100); Allen's Test Y; Oxygen 4 %; Source Right Radial
[2022-02-26 01:54] LABS: Coronavirus 19, PCR Not Detected (NotDetected); Influenza A, PCR Not Detected (NotDetected); Influenza B, PCR Not Detected (NotDetected)
[2022-02-26 02:03] LABS: Basophils # 0.3 K/mm3 (0-0.2); Basophils % 1.1 % (0.1-2.0); Eosinophils % 0.1 % (0.1-12.0); Hematocrit 47.6 % (37.0-47.0); Hemoglobin 15.5 g/dL (12.2-16.2); Lymphocytes # 2.2 K/mm3 (0.7-4.5); Lymphocytes % 8.2 % (10-50); Mean Corpuscular HGB Conc 32.6 g/dL (31.8-35.4); Mean Corpuscular Hemoglobin 33.3 pg (27.0-31.2); Mean Corpuscular Volume 102.1 fl (81-99); Mean Platelet Volume 7.9 fl (7.4-10.4); Monocytes # 1.1 K/mm3 (0.1-1.0); Monocytes % 4.1 % (1.7-9.3); Neutrophils % 86.6 % (37.0-80.0); Platelet Count 454 K/mm3 (142-424); Red Blood Count 4.66 M/mm3 (4.20-5.40); Red Cell Distribution Width 14.4 % (11.5-17.5)
[2022-02-26 02:05] LABS: White Blood Count 26.6 K/mm3 (4.8-10.8)
[2022-02-26 02:06] LABS: MANUAL DIFFERENTIAL MANUAL DIFFERENTIAL (MANUAL DIFF)
--- NOTE | 2022-02-26 02:09 | HMH.EDWEAK ---
Discharge Plan Disposition Patient Disposition: Admitted As Inpatient Prescriptions Prescriptions: No Action esomeprazole magnesium 20 mg capsule,delayed release(DR/EC) See Rx Instructions .ROUTE .COMPLEX Qty: 30 11RF Dose Instruction: TAKE ONE CAPSULE BY MOUTH ONCE A DAY Rx Instructions: TAKE ONE CAPSULE BY MOUTH ONCE A DAY meclizine 25 mg tablet See Rx Instructions .ROUTE .COMPLEX Qty: 30 3RF Dose Instruction: TAKE ONE TABLET BY MOUTH 3 TIMES A DAY NEEDED FOR DIZZINESS Rx Instructions: TAKE ONE TABLET BY MOUTH 3 TIMES A DAY NEEDED FOR DIZZINESS azithromycin [Zithromax Z-Evangelist] 250 mg tablet See Rx Instructions PO .COMPLEX Qty: 6 0RF Rx Instructions: For 250 mg dose pack: take 500 mg today (day 1), then 250 mg for 4 days (days 2-5) PO methylprednisolone [Medrol (Evangelist)] 4 mg tablets,dose pack See Rx Instructions PO PER PKG DIR Qty: 21 0RF Rx Instructions: PO PER PKG DIR clonazepam [Klonopin] 0.5 mg tablet 0.5 mg PO BID Qty: 60 1RF gabapentin 800 mg tablet 800 mg PO QID Qty: 120 1RF oxycodone-acetaminophen [Percocet] 10-325 mg tablet 1 tab PO QID PRN (Reason: pain) Qty: 120 0RF umeclidinium-vilanterol 62.5-25 mcg/actuation blister with device 1 inh INHALATION DAILY Qty: 1 5RF Xarelto 2.5 mg tablet 2.5 mg PO BID Qty: 60 2RF hydrocortisone 2.5 % cream 1 applic topical BID PRN (Reason: itching) Qty: 30 0RF bisoprolol fumarate 5 mg tablet 5 mg PO DAILY Qty: 90 3RF albuterol sulfate 90 mcg/actuation HFA aerosol inhaler 1 inh IH Q6HP PRN (Reason: Shortness Of Breath) Qty: 1 5RF aspirin [Adult Aspirin Regimen] 81 mg tablet,delayed release (DR/EC) 81 mg PO DAILY Qty: 30 2RF rosuvastatin [Crestor] 40 mg tablet 40 mg PO DAILY Qty: 30 3RF levothyroxine 25 mcg capsule 25 mcg PO DAILY Qty: 90 3RF ergocalciferol (vitamin D2) 1,250 mcg (50,000 unit) capsule 1,250 mcg PO WEEKLY Qty: 13 3RF cholecalciferol (vitamin D3) 25 mcg (1,000 unit) capsule 25 mcg PO DAILY Qty: 90 2RF Referrals Follow up/Referrals: Boris Joshi MD [Primary Care Provider] - See instructions Clinical Impressions Clinical Impression: CAP (community acquired pneumonia), Severe sepsis with acute organ dysfunction, Respiratory failure with hypoxia and hypercapnia, CAD (coronary artery disease), Elevated brain natriuretic peptide (BNP) level Discharge ED Provider: Boris Joshi Weakness HPI General Chief complaint: Weakness Stated complaint: Cough, Diarrhea, loss of appetite, fever Time Seen by Provider: 02/26/22 02:09 Mode of Arrival: Wheelchair Source of Information: Patient, Relative and Medical Record Limitations: No Limitations Description of Symptoms (Recalled from ER Triage Doc. by RN): per daughter, pt has become more weak, SOA and not eating for several days. pt c/o increasing SOA and weakness. History of Present Illness HPI Narrative: over the last few days has increased weakness and sob with cough and dec po intake - hx of tob use but stopped about 1 week ago - Complaint: generalized weakness Onset (ago): day(s) Location: generalized Migration: none Severity: moderate Associated symptoms: loss of appetite and shortness of breath Related Data Previous Rx's Medication Instructions Recorded cholecalciferol (vitamin D3) 25 25 mcg PO DAILY #90 caps 04/05/21 mcg (1,000 unit) capsule ergocalciferol (vitamin D2) 1,250 1,250 mcg PO WEEKLY #13 caps 04/05/21 mcg (50,000 unit) capsule levothyroxine 25 mcg capsule 25 mcg PO DAILY #90 caps 04/05/21 umeclidinium 62.5 mcg-vilanterol 1 inh inhalation DAILY #1 ea 05/22/21 25 mcg/actuation powdr for inhalation rivaroxaban 2.5 mg tablet (Xarelto) 2.5 mg PO BID #60 tabs 08/31/21 hydrocortisone 2.5 % topical cream 1 applic topical BID PRN itching 10/11/21 #30 grams esomeprazole magnesium 20 mg See Rx Instructions .Route 12/08/21 capsule,delayed release .COMPLEX #
[2022-02-26 02:18] LABS: Alanine Aminotransferase 17 U/L (12-78); Albumin Level 3.8 g/dl (3.5-5.0); Albumin/Globulin Ratio 0.8 (1.1-1.8); Alkaline Phosphatase 174 U/L (38-126); Aspartate Amino Transferase 39 U/L (14-36); Bilirubin,Total 0.4 mg/dl (0.2-1.3); Blood Urea Nitrogen 22 mg/dl (7-17); Calcium 8.6 mg/dl (8.4-10.2); Chloride 87 mmol/L (98-107); Creatinine Clearance Estimated 87 mL/min (50-200); Estimated Glomerular Filt Rate 86 ml/min (>60); GFR (African American) 104 ML/MIN (>60); Globulin 4.5 g/dL (1.3-3.2); Glucose 118 mg/dl (74-100); Lactic Acid 1.5 mmol/L (0.7-2.1); Potassium 3.8 mmoL/L (3.5-5.1); Sodium 135 mmol/L (136-145); Total Protein,Serum 8.3 g/dl (6.3-8.2)
[2022-02-26 02:23] LABS: C-Reactive Protein 281.7 mg/L (0-4)
[2022-02-26 02:27] LABS: Anion Gap 11.8 mEq/L (5-15); Carbon Dioxide 40 mmol/L (22.0-30.0)
[2022-02-26 02:30] LABS: Lymphocytes % 7 % (10-50); Monocytes % 1 % (2-9); Neutrophils % 82 % (42-76); Total Cells Counted 100
[2022-02-26 02:31] LABS: Macrocytosis 2+; Platelet Estimate Slight Increase
[2022-02-26 02:32] LABS: Erythrocyte Sedimentation Rate 28 mm/hr (0-30)
[2022-02-26 02:33] LABS: NT Pro Brain Natriuretic Pep. 1260 pg/mL (0-125)
[2022-02-26 02:37] LABS: Procalcitonin 0.304 ng/mL (0.0-2.0); Troponin I < 0.01 ng/ml (0.00-0.034)
--- NOTE | 2022-02-26 03:14 | PC.NURSE ---
pt out of room to CT @ this time.
--- NOTE | 2022-02-26 04:55 | EXP.HP ---
History of Present Illness *Admission Date: 02/26/22 *Reason for visit:: Shortness of air, Productive cough *History of present illness: Ms. Eckert is a 61-year-old female with a past medical history of COPD, tobacco abuse, PAD on Doac, Hypothryroidism. She presents to [facility] due to weakness, chills, body aches x 5 days associated with progressing shortness of air and productive cough over the last day. The patient was seen in the ER on admission, daughter was at bedside and gave information. They deny similar sick contacts or otc medications for symptoms. They report that her symptoms became severe over the last day so she came into the ER for evaluation. In the ER, the patient was noted to be hypoxic on arrival only saturating 77% on room air. ABG obtained showed a pCO2 of 66.7 and pO 2 of 40.7 with spO2 of 76%. She was placed on BIPAP. Cxray was concerning for bilateral lower lobe infiltrates. CTA obtained showed extensive tree in bud changes with patchy ground glass opacities in the bilateral upper lobes. Covid and Flu testing were negative. CBC showed an elevated WBC at 26.6. The patient will be admitted with initial impression: Sepsis, Acute Hypoxic and Hypercapnic Respiratory Failure and Pneumonia. She will be placed on broad spectrum antibiotics, cultures obtained. She has been given fluids in the ER. Repeat ABG will be obtained after being on the BIPAP for evaluation and further treatment. The plan of care was discussed with the patient and patient's daughter upon evaluation in the ER. Both verbalized understanding and agreement with the plan of care. [facility] Disclaimer: The information contained in this section may have been updated after the patient was seen, as this information can be updated by other users. Medical History (Updated 02/26/22 @ 05:14 by Richard Ayoub DNP) Anxiety disorder COPD (chronic obstructive pulmonary disease) Femoral artery occlusion Femoral artery occlusion Hypothyroidism PAD (peripheral artery disease) Tobacco abuse Social History Smoking Status: Former smoker alcohol intake: never substance use type: denies use current occupational status: unemployed Travel in the last 8 weeks: Inside the [place] household members: children housing: house current occupational exposures/hazards: No caffeine: Yes Review of Systems Review of Systems Review of systems:: pertinent systems reviewed and negative unless documented below Constitutional Constitutional: Reports system reviewed and no additional complaints, except as documented Eyes Eyes: Reports system reviewed and no additional complaints, except as documented ENT Ears, Nose, Mouth, and Throat: Reports system reviewed and no additional complaints, except as documented *Cardiovascular Cardiovascular: Reports system reviewed and no additional complaints, except as documented, Reports dyspnea and Reports dyspnea on exertion *Respiratory Respiratory: Reports cough, Reports dyspnea, Reports dyspnea on exertion and Reports excessive phlegm production *Gastrointestinal Gastrointestinal: Reports system reviewed and no additional complaints, except as documented *Genitourinary Genitourinary: Reports system reviewed and no additional complaints, except as documented *Musculoskeletal Musculoskeletal: Reports system reviewed and no additional complaints, except as documented Integumentary/Breasts Skin/Breast: Reports system reviewed and no additional complaints, except as documented *Neurologic Neurologic: Reports system reviewed and no additional complaints, except as documented Psychiatric Psychiatric: Reports system reviewed and no additional complaints, except as documented Endocrine Endocrine: Reports system reviewed and no additional complaints, except as documented Hematologic/Lymphatic Hematologic/Lymphatic: Reports system reviewed and no additio
[2022-02-26 04:56] LABS: Troponin I < 0.01 ng/ml (0.00-0.034)
[2022-02-26 05:17] LABS: ABG Base Excess 8.3 mmol/L (-2.4-2.3); ABG HCO3 33.1 mmhg (22.0-26.0); ABG Oxygen Saturation 89 % (90-100); ABG PO2 55.4 mmhg (80-100); ABG TCO2 34.8 mmhg (23-27)
[2022-02-26 05:20] LABS: Oxygen 50% %
[2022-02-26 05:21] LABS: Allen's Test Acceptable; Source Left Radial; Vent Rate 20
[2022-02-26 05:25] LABS: ABG PCO2 55.2 mmhg (35.0-45.0)
--- NOTE | 2022-02-26 08:12 | HMH.PHAINT1 ---
Pharmacy Intervention Comments: MEDICATION RECONCILIATION COMPLETED ON PATIENT USING EXTERNAL FILL HISTORY FROM PHARMACY AND LIST FROM CARDIOLOGY OFFICE. -MP BLAKE, VIANCAD
--- NOTE | 2022-02-26 08:20 | EXP.PHA.CONS ---
Pharmacy Consult Date: 02/26/22 Time: 08:20 Referring provider: DR DAVID FERREIRA Reason for Consult:: VANCOMYCIN DOSING CONSULT Allergies Allergy/AdvReac Type Severity Reaction Status Date / Time lansoprazole [From PREVACID] Allergy Intermediate Palpitation Verified 01/24/22 14:43 s omeprazole [From PRILOSEC] Allergy Intermediate Palpitation Verified 01/24/22 14:43 s [id number] Reductase AdvReac Intermediate Muscle Pain Verified 01/24/22 14:43 Inhibitor atorvastatin AdvReac Cramping Verified 01/24/22 14:43 of the Muscles Home Medications Medication Instructions Recorded Confirmed Type albuterol sulfate 90 mcg/actuation 1 inh inhalation Q6HP PRN 01/24/22 02/26/22 Rx aerosol inhaler Shortness Of Breath #1 g aspirin 81 mg tablet,delayed 81 mg PO DAILY HEART HEALTH 02/26/22 02/26/22 History release (Adult Aspirin Regimen) bisoprolol fumarate 5 mg tablet 5 mg PO DAILY Hypertension 02/26/22 02/26/22 History clonazepam 0.5 mg tablet (Klonopin) 0.5 mg PO BID Anxiety 02/26/22 02/26/22 History esomeprazole magnesium 20 mg 20 mg PO DAILY GERD 02/26/22 02/26/22 History capsule,delayed release gabapentin 800 mg tablet 800 mg PO QID Pain 02/26/22 02/26/22 History levothyroxine 25 mcg tablet 25 mcg PO DAILY THYROID 02/26/22 02/26/22 History meclizine 25 mg tablet 25 mg PO TIDP PRN Dizziness 02/26/22 02/26/22 History oxycodone-acetaminophen 10 mg-325 1 tab PO QIDP PRN Moderate Pain 02/26/22 02/26/22 History mg tablet (Percocet) (Scale Score 5-6) rivaroxaban 2.5 mg tablet (Xarelto) 2.5 mg PO BID PAD 02/26/22 02/26/22 History rosuvastatin 40 mg tablet (Crestor) 40 mg PO DAILY Cholesterol 02/26/22 02/26/22 History New Prescriptions to Start Prescriptions: Height: 1.68 m Weight: 63.503 kg Laboratory Results:: Laboratory Results - last 24 hr 02/26/22 01:20: SARS-CoV-2 (PCR) Not detected, Influenza A Untype (PCR) Not detected, Influenza Type B (PCR) Not detected 02/26/22 01:28: Specimen Source Right radial, O2 % 4, ABG pH 7.40, ABG pCO2 66.7 H, ABG pO2 40.7 L, ABG HCO3 39.9 H, ABG Total CO2 42.0 H, ABG O2 Saturation 76 L*, ABG Base Excess 15.0 H, Aleksandr Test Y 02/26/22 01:40: WBC 26.6 H*, RBC 4.66, Hgb 15.5, Hct 47.6 H, MCV 102.1 H, MCH 33.3 H, MCHC 32.6, RDW 14.4, Plt Count 454 H, MPV 7.9, Neut % (Auto) 86.6 H, Lymph % (Auto) 8.2 L, Milam % (Auto) 4.1, Eos % (Auto) 0.1, Baso % (Auto) 1.1, Neut # (Auto) 23.0 H, Lymph # (Auto) 2.2, Milam # (Auto) 1.1 H, Eos # (Auto) 0.0, Baso # (Auto) 0.3 H, Total Counted 100, Neutrophils % (Manual) 82 H, Band Neutrophils % 10.0 H, Lymphocytes % (Manual) 7 L, Monocytes % (Manual) 1 L, Platelet Estimate Slight increase, Macrocytosis 2+, ESR 28 02/26/22 01:40: Sodium 135 L, Potassium 3.8, Chloride 87 L, Carbon Dioxide 40 H, Anion Gap 11.8, BUN 22 H, Creatinine 0.70, Estimated Creat Clear 87, Estimated GFR 86, Est GFR ( Amer) 104, Glucose 118 H, Calcium 8.6, Total Bilirubin 0.4, AST 39 H, ALT 17, Alkaline Phosphatase 174 H, Troponin I < 0.01, C-Reactive Protein 281.7 H, NT-Pro-B Natriuret Pep 1260 H, Total Protein 8.3 H, Albumin 3.8, Globulin 4.5 H, Albumin/Globulin Ratio 0.8 L, Procalcitonin 0.304 02/26/22 01:40: Lactate 1.5 02/26/22 04:20: Troponin I < 0.01 02/26/22 04:47: Specimen Source Left radial, O2 % 50%, ABG pH 7.40, ABG pCO2 55.2 H, ABG pO2 55.4 L, ABG HCO3 33.1 H, ABG Total CO2 34.8 H, ABG O2 Saturation 89 L, ABG Base Excess 8.3 H, Aleksandr Test Acceptable, Vent Rate 20, Tidal Volume Bipap 12/6 Medical History: Medical History (Updated 02/26/22 @ 05:14 by Richard Ayoub DNP) Anxiety disorder COPD (chronic obstructive pulmonary disease) Femoral artery occlusion Femoral artery occlusion Hypothyroidism PAD (peripheral artery disease) Tobacco abuse Assessment and Plan Assessment and plan all Dx Assessment and Plan for all problems:: Pharmacokinetic dosing service Objective: Age: 61 yo Serum creatinine: 0.7 mg/d
--- NOTE | 2022-02-26 08:40 | CA_ITS ---
APPROVED REPORT EXAM: Comprehensive 2D, Doppler, and color-flow Echocardiogram Roll Former: Yamilex Torres, RT(R) Ht: 5 ft 6 in Wt: 140lbs BSA: 1.72 BP: 142/88 mmHg Indications: hypoxia, COPD, smoker, CAD, pneumonia, pt uncooperative and wouldn't lay still during exam. Currently on bipap. 2D Dimensions LVOT 2.18 cm (M/F) 1.5-2.5 M-Mode Dimensions RVDd 2.73 cm (0.9-2.6) LA Diam 3.58 cm (1.9-4.0) LVDd 4.14 cm (3.5-5.7) Ao Diam 2.71 cm (2.0-3.7) LVDs 2.96 cm (3.5-5.7) IVSd 0.87 cm (0.6-1.1) PWd 0.72 cm (0.6-1.1) EF (Teich) 55.30% FS 28.50% EDV (Teich) 75.90 mL TAPSE 2.02 (<1.7) ESV (Teich) 33.90 mL LV Diastology E Decel Time 170.00 (160-240 msec) E/A Ratio 0.9 MED E' 10.90 (< 7 cm/sec) E'/MED E' Ratio 6.50 (>14) LAT E' 12.60 (<10 cm/sec) E/LAT E' Ratio 5.62 (>14) Mitral Valve MV E Max Trevor. 71.00 (40-130 cm/s) MV A Velocity 82.00 (40-130 cm/s) E/A Ratio 0.86 MV Decel. Time 170.00 (160-240 ms) MV PHT 50.00 ms Left Ventricle Technically difficult study because of the patient factors and poor acoustic windows. Left atrium is mildly enlarged, left ventricle is normal size mild concentric left ventricular hypertrophy, estimated ejection fraction 55% with no regional wall motion abnormality, diastolic parameters are inconclusive. Right Ventricle Right atrium and right ventricle are mildly enlarged with normal contractility. Aortic Valve Aortic valve is minimally thickened and fibrosed there is no aortic stenosis or aortic insufficiency. Mitral Valve Mitral valve leaflets are grossly normal, there is no mitral stenosis, there is trace mitral regurgitation. Tricuspid Valve Tricuspid grossly normal, there is trace tricuspid regurgitation, tricuspid regurgitation jet velocity is inadequate for calculation of the right ventricular systolic pressure. Pulmonic Valve Pulmonic valve is poorly visualized. Great Vessels Aortic root is normal size. Inferior vena cava is poorly visualized. Pericardium No significant pericardial effusion noted. Conclusion 1. Biatrial enlargement, normal left ventricular size, mild concentric left ventricular hypertrophy, estimated ejection fraction 55% with no regional wall motion abnormality, diastolic parameters are inconclusive. 2. Mildly enlarged right ventricle with normal contractility. 3. Trace mitral and tricuspid regurgitation. 4. No significant pericardial effusion noted. 5. Inferior vena cava is poorly visualized. Electronically signed by : Terrance Nguyễn MD 02/26/2022 22:01:03
[2022-02-26 09:21] LABS: Troponin I < 0.01 ng/ml (0.00-0.034)
[2022-02-26 12:43] LABS: Vitamin B12 573 pg/mL (239-931)
[2022-02-26 13:15] LABS: Adenovirus,PCR Not Detected (NotDetected); Bordetella Pertussis Not Detected (NotDetected); Chlamydophila Pneumoniae, PCR Not Detected (NotDetected); Coronavirus 19, PCR Not Detected (NotDetected); Coronavirus 229E Not Detected (NotDetected); Coronavirus NL63 Not Detected (NotDetected); Coronavirus OC43 Not Detected (NotDetected); Coronovirus HKU1,PCR Not Detected (NotDetected); Human Metapneumovirus Not Detected (NotDetected); Influenza A, PCR Not Detected (NotDetected); Influenza AH1, 2009 Not Detected (NotDetected); Influenza AH1, PCR Not Detected (NotDetected); Influenza AH3,PCR Not Detected (NotDetected); Influenza B, PCR Not Detected (NotDetected); Mycoplasma Pneumoniae, PCR Not Detected (NotDetected); Parainfluenza 1, PCR Not Detected (NotDetected); Parainfluenza 2, PCR Not Detected (NotDetected); Parainfluenza 3, PCR Not Detected (NotDetected); Parainfluenza 4, PCR Not Detected (NotDetected); Respiratory Syncytial Virus Not Detected (NotDetected); Rhinovirus/Enterovirus Not Detected (NotDetected)
--- NOTE | 2022-02-26 13:46 | EXP.CARD.CON ---
History of Present Illness History of Present Illness Consult date: 02/26/22 Requesting physician: Samantha Dougherty Consult reason: shortness of breath Chief complaint: Acute resp failure, COPD, pneumonitia/pneumonitis Additional Medical History:: 1. Tobacco use with COPD 2. PAD with history of intervention of the right common iliac area 3. Hypothyroidism 4. Strong family history of coronary artery disease 5. Severe coronary artery calcifications noted on CT of the chest, 02/2019 History of present illness: Ms. Eckert is a 61-year-old female with a past medical history of COPD, tobacco abuse, PAD on [place], Hypothryroidism. She presents to [facility] due to weakness, chills, body aches x 5 days associated with progressing shortness of air and productive cough over the last day. The patient was seen in the ER on admission, daughter was at bedside and gave information.? They deny similar sick contacts or otc medications for symptoms.? They report that her symptoms became severe over the last day so she came into the ER for evaluation. In the ER, the patient was noted to be hypoxic on arrival only saturating 77% on room air.? ABG obtained showed a pCO2 of 66.7 and pO 2 of 40.7 with spO2 of 76%.? She was placed on BIPAP.? Cxray was concerning for bilateral lower lobe infiltrates.? CTA obtained showed extensive tree in bud changes with patchy ground glass opacities in the bilateral upper lobes.? Covid and Flu testing were negative.? CBC showed an elevated WBC at 26.6.? The patient will be admitted with initial impression:? Sepsis, Acute Hypoxic and Hypercapnic Respiratory Failure and Pneumonia. She will be placed on broad spectrum antibiotics, cultures obtained.? She has been given fluids in the ER.? Repeat ABG will be obtained after being on the BIPAP for evaluation and further treatment.? The plan of care was discussed with the patient and patient's daughter upon evaluation in the ER.? Both verbalized understanding and agreement with the plan of care.? The above per Richard Ayoub DNP for the hospital Events above confirmed with the patient. She denies any chest pain, pressure or chest tightness until recent shortness of breath worsened as noted above. Troponins have returned normal this admission. She was noted to have severe coronary artery calcification on CT of the chest this admission. Patient does have known peripheral arterial disease. Echocardiogram has been performed with results pending at this time. [facility] Disclaimer: The information contained in this section may have been updated after the patient was seen, as this information can be updated by other users. Medical History (Updated 02/26/22 @ 13:52 by JOSEPHINE Casey) Anxiety disorder COPD (chronic obstructive pulmonary disease) Femoral artery occlusion Femoral artery occlusion Hypothyroidism PAD (peripheral artery disease) Tobacco abuse Social History Smoking Status: Former smoker alcohol intake: never substance use type: denies use current occupational status: unemployed Travel in the last 8 weeks: Inside the [place] household members: children housing: house current occupational exposures/hazards: No caffeine: Yes Review of Systems Review of Systems Review of systems:: pertinent systems reviewed and negative unless documented below *Cardiovascular Cardiovascular: Denies chest pain and Reports dyspnea *Respiratory Respiratory: Reports dyspnea *Neurologic Neurologic: Reports system reviewed and no additional complaints, except as documented Exam Data for Last 24 hours Vital signs and Labs for Last 24 Hours: Temp Pulse Resp BP Pulse Ox FiO2 98.5 F 89 24 157/86 H 92 L 70 02/26/22 12:00 02/26/22 12:00 02/26/22 12:00 02/26/22 12:00 02/26/22 12:50 02/26/22 12:50 Laboratory Results - last 24 hr 02/26/22 01:20: SARS-CoV-2 (PCR) Not detected, Influenza
--- NOTE | 2022-02-26 18:23 | EXP.EVENT.NO ---
S: On rounds patient having some dyspnea. No other complaints. O: Hypertensive, mild hypoxemia on BiPAP. Respiratory metabolic alkalosis. Increased alk phos. Increased CRP. Increased BNP. Pneumonitis and atelectasis on CTA. A/p: I suspect this is likely a pneumonitis possibly from a viral etiology given lack of obvious bacterial infection on imaging. Either way the infectious process is severe causing hypoxemic respiratory failure, will continue antibiotics at this time until an obvious source appears. At this time I cannot exclude a cardiac etiology such as systolic heart failure or diastolic heart failure, however I think it is less likely. Will evaluate cardiac function with a TTE. transitioned patient to high flow given hypoxic respiratory failure without hypercapnia. Plan is to give supportive respiratory therapy with steroids DuoNebs chest PT and oxygen. Follow-up results.
[2022-02-26 19:03] LABS: Microscopic, Urine URINE MICROSCOPIC (MICROSCOPIC)
[2022-02-26 19:06] LABS: Appearance,Urine SL CLOUDY (Clear); Blood, Urine 3+ (Negative); Color,Urine DK YELLOW (Yellow); Glucose,Urine (UA) Negative (Negative); Ketones,Urine Negative (Negative); Leukocyte Esterase,Urine Negative (Negative); Nitrate,Urine POSITIVE (Negative); PH,Urine 6.5 (5.0-8.5); Protein,Urine 1+ (Negative)
[2022-02-26 19:13] LABS: Bilirubin,Urine 1+ (Negative)
[2022-02-26 19:47] LABS: Bacteria,Urine 1+ /lpf
--- NOTE | 2022-02-26 22:20 | PC.NURSE ---
pt password [id number]
[2022-02-27] VITALS (11 sets, daily range): BP systolic 144–158; BP diastolic 77–86; PULSE 50–82; RESP 16–22; TEMP 36.8–36.9; O2SAT 90–97; BMI 23.0
--- NOTE | 2022-02-27 04:18 | PC.NURSE ---
Pt A&OX4. Pt remains on Vapotherm 30L 70% tolerating well. O2 sats >90%. Rhonchi and wheezes noted. Pt has been incontinent of urine and stool.
[2022-02-27 06:08] LABS: Alanine Aminotransferase 15 U/L (12-78); Albumin Level 3.1 g/dl (3.5-5.0); Albumin/Globulin Ratio 0.9 (1.1-1.8); Alkaline Phosphatase 123 U/L (38-126); Anion Gap 5.4 mEq/L (5-15); Aspartate Amino Transferase 34 U/L (14-36); Bilirubin,Total 0.4 mg/dl (0.2-1.3); Blood Urea Nitrogen 25 mg/dl (7-17); Calcium 8.1 mg/dl (8.4-10.2); Carbon Dioxide 39 mmol/L (22.0-30.0); Chloride 95 mmol/L (98-107); Creatinine Clearance Estimated 104 mL/min (50-200); Estimated Glomerular Filt Rate 102 ml/min (>60); GFR (African American) 124 ML/MIN (>60); Globulin 3.3 g/dL (1.3-3.2); Glucose 116 mg/dl (74-100); Magnesium 2.1 mg/dl (1.6-2.3); Phosphorous 3.1 mg/dl (2.5-4.5); Potassium 4.4 mmoL/L (3.5-5.1); Sodium 135 mmol/L (136-145); Total Protein,Serum 6.4 g/dl (6.3-8.2)
[2022-02-27 06:13] LABS: Basophils # 0.1 K/mm3 (0-0.2); Basophils % 0.3 % (0.1-2.0); Hematocrit 44.1 % (37.0-47.0); Hemoglobin 13.3 g/dL (12.2-16.2); Lymphocytes # 1.3 K/mm3 (0.7-4.5); Lymphocytes % 6.8 % (10-50); Mean Corpuscular HGB Conc 30.3 g/dL (31.8-35.4); Mean Corpuscular Hemoglobin 32.2 pg (27.0-31.2); Mean Corpuscular Volume 106.3 fl (81-99); Mean Platelet Volume 7.9 fl (7.4-10.4); Monocytes # 0.8 K/mm3 (0.1-1.0); Monocytes % 4.2 % (1.7-9.3); Neutrophils # 17.1 K/mm3 (1.8-7.8); Neutrophils % 88.7 % (37.0-80.0); Platelet Count 451 K/mm3 (142-424); Red Blood Count 4.14 M/mm3 (4.20-5.40); Red Cell Distribution Width 14.5 % (11.5-17.5); White Blood Count 19.3 K/mm3 (4.8-10.8)
[2022-02-27 06:23] LABS: MANUAL DIFFERENTIAL MANUAL DIFFERENTIAL (MANUAL DIFF)
[2022-02-27 06:36] LABS: VBG Base Excess 8.9 mmol/L (-2.4-2.3); VBG HCO3 31.9 mmol/L (23-30); VBG Oxygen Saturation 99.6 % (50-70); VBG PCO2 40.7 mmol/L (35-51); VBG PH 7.51 mmol/L (7.31-7.41); VBG PO2 210.6 mmol/L (28-40); VBG Total CO2 33.1 mmol/L (23-27)
[2022-02-27 07:45] LABS: Lymphocytes % 4 % (10-50); Monocytes % 6 % (2-9); Neutrophils % 90 % (42-76); Total Cells Counted 100
[2022-02-27 07:46] LABS: Anisocytosis 1+; Hypochromasia 1+; Macrocytosis 1+; Platelet Estimate Slight Increase; RBC Morphology KNP
--- NOTE | 2022-02-27 11:02 | EXP.CARD.PN ---
Subjective Subjective Date: 02/27/22 Time: 11:00 Principal diagnosis: ARF Interval history: 61 yo WF in bed in [facility]. No complaint of CP. Breathing is slightly better. Echo shows normal LVEF with no significant valve disease. Exam Data for Last 24 hours Vital signs and Labs for Last 24 Hours: Temp Pulse Resp BP Pulse Ox FiO2 98.4 F 52 L 16 144/80 H 95 70 02/27/22 07:53 02/27/22 09:30 02/27/22 07:53 02/27/22 07:53 02/27/22 09:30 02/27/22 09:30 Laboratory Results - last 24 hr 02/26/22 08:40: Vitamin B12 573 02/26/22 13:00: Chlamy pneumoniae PCR Not detected, Adenovirus (PCR) Not detected, B. pertussis DNA (PCR) Not detected, Coronavirus OC43 (PCR) Not detected, Coronavirus HKU1 (PCR) Not detected, Coronavirus 229E (PCR) Not detected, SARS-CoV-2 (PCR) Not detected, Coronavirus NL63 (PCR) Not detected, Human Metapneumovir PCR Not detected, Influenza A (H1) PCR Not detected, Influ A (H1N1/09) PCR Not detected, Influenza A (H3) PCR Not detected, Influenza Type A (PCR) Not detected, Influenza Type B (PCR) Not detected, M. pneumoniae (PCR) Not detected, Parainfluenza 1 (PCR) Not detected, Parainfluenza 2 (PCR) Not detected, Parainfluenza 3 (PCR) Not detected, Parainfluenza 4 (PCR) Not detected, RSV (PCR) Not detected, Entero/Rhino (PCR) Not detected 02/26/22 18:39: Urine Color Dk yellow, Urine Appearance Sl cloudy, Urine pH 6.5, Ur Specific [place] 1.020, Urine Protein 1+, Urine Glucose (UA) Negative, Urine Ketones Negative, Urine Blood 3+, Urine Nitrate Positive, Urine Bilirubin 1+ A, Urine Urobilinogen 1.0, Ur Leukocyte Esterase Negative, Urine RBC 5-10, Urine WBC 3-5, Ur Squamous Epith Cells 3-5, Urine Bacteria 1+ 02/27/22 05:42: WBC 19.3 H D, RBC 4.14 L, Hgb 13.3, Hct 44.1, MCV 106.3 H, MCH 32.2 H, MCHC 30.3 L, RDW 14.5, Plt Count 451 H, MPV 7.9, Neut % (Auto) 88.7 H, Lymph % (Auto) 6.8 L, [place] % (Auto) 4.2, Eos % (Auto) 0.0 L, Baso % (Auto) 0.3, Neut # (Auto) 17.1 H, Lymph # (Auto) 1.3, [place] # (Auto) 0.8, Eos # (Auto) 0.0, Baso # (Auto) 0.1, Total Counted 100, Neutrophils % (Manual) 90 H, Lymphocytes % (Manual) 4 L, Monocytes % (Manual) 6, Platelet Estimate Slight increase, RBC Morphology Knp, Hypochromasia 1+, Anisocytosis 1+, Macrocytosis 1+ 02/27/22 05:42: Sodium 135 L, Potassium 4.4, Chloride 95 L, Carbon Dioxide 39 H, Anion Gap 5.4, BUN 25 H, Creatinine 0.60, Estimated Creat Clear 104, Estimated GFR 102, Est GFR ( Amer) 124, Glucose 116 H, Calcium 8.1 L, Phosphorus 3.1, Magnesium 2.1, Total Bilirubin 0.4, AST 34, ALT 15, Alkaline Phosphatase 123, Total Protein 6.4, Albumin 3.1 L D, Globulin 3.3 H, Albumin/Globulin Ratio 0.9 L 02/27/22 06:00: VBG pH 7.51 H, VBG pCO2 40.7, VBG pO2 210.6 H, VBG HCO3 31.9 H, VBG Total CO2 33.1 H, VBG O2 Saturation 99.6 H, VBG Base Excess 8.9 H I & O for Last 24 hours: Intake & Output 02/24/22 02/25/22 02/26/22 02/27/22 11:59 11:59 11:59 11:59 Intake Total 600 / 600 Output Total 0 / 0 Balance 600 / 600 Weight 144 lb 3 oz 143 lb 4.807 oz Microbiology Reports for the Last 24 Hours: Microbiology 02/26/22 09:45 Sputum - Expectorated Sputum Gram Stain - Final Constitutional Constitutional: no acute distress *Routine Respiratory Exam Respiratory: Present rhonchi and wheezes *Routine Cardiovascular Exam Cardiovascular: Present RRR Progress Note: A&P Assessment and plan (1) PAD (peripheral artery disease): Status: Acute (2) COPD (chronic obstructive pulmonary disease): Status: Acute (3) Acute respiratory failure with hypoxia and hypercapnia: Status: Acute (4) Pneumonia: Status: Acute (5) CAD (coronary artery disease): Status: Acute (6) Tobacco dependence: Status: Chronic (7) Coronary artery calcification seen on CT scan: Status: Acute Assessment and Plan Assessment and Plan for All Diagnoses:: 1.? Acute respiratory failure on top of COPD with pneumonia by CT of the chest, defer to PCP 2.? Severe coronary calcifi
--- NOTE | 2022-02-27 15:11 | EXP.ACUTE.PN ---
Subjective *Date: 02/27/22 *Time: 17:32 Interval history: Still complains of feeling weak, shortness of breath without significant change. No nausea, vomiting, diarrhea. Had a bowel movement yesterday. Tolerating moderate p.o. intake. Denies confusion. Medical Exam Vital signs and Labs for Last 24 Hours: Vital Signs Temp Pulse Pulse Resp BP Pulse Ox FiO2 02/27/22 13:20 65 02/27/22 13:20 67 02/27/22 13:20 94 L 60 02/27/22 11:49 98.3 F 65 20 144/86 H 94 L 02/27/22 09:30 52 L 02/27/22 09:30 56 L 02/27/22 09:30 95 70 02/27/22 07:53 98.4 F 60 16 144/80 H 92 L 02/27/22 06:20 66 02/27/22 06:20 62 02/27/22 06:20 97 70 02/27/22 03:54 98.2 F 70 16 147/77 H 93 L 02/27/22 01:35 73 02/27/22 01:35 82 02/27/22 00:00 70 02/26/22 23:47 98.9 F 66 15 144/78 H 95 02/26/22 22:10 71 02/26/22 22:10 72 02/26/22 20:00 70 02/26/22 18:30 67 02/26/22 18:30 70 02/26/22 18:30 93 L 70 02/26/22 19:48 98.5 F 75 21 145/81 H 90 L 02/26/22 16:00 98.7 F 59 L 16 137/81 92 L Intake and Output 02/26/22 02/27/22 02/27/22 23:59 07:59 15:59 Intake Total 600 / 600 Output Total 0 / 0 1000 / 1000 Balance 0 / 240 -400 / -400 Intake: Intake, Oral Amount 600 / 600 Output: Output, Urine Amount 0 / 0 1000 / 1000 Other: Number of Unmeasured Voids 1 1 Number of Urine Attends/Diapers 1 Number of Bowel Movements 5 Weight 65 kg Patient Weight 02/27/22 23:59 Weight 65 kg Laboratory Results - last 24 hr 02/26/22 18:39: Urine Color Dk yellow, Urine Appearance Sl cloudy, Urine pH 6.5, Ur Specific [place] 1.020, Urine Protein 1+, Urine Glucose (UA) Negative, Urine Ketones Negative, Urine Blood 3+, Urine Nitrate Positive, Urine Bilirubin 1+ A, Urine Urobilinogen 1.0, Ur Leukocyte Esterase Negative, Urine RBC 5-10, Urine WBC 3-5, Ur Squamous Epith Cells 3-5, Urine Bacteria 1+ 02/27/22 05:42: WBC 19.3 H D, RBC 4.14 L, Hgb 13.3, Hct 44.1, MCV 106.3 H, MCH 32.2 H, MCHC 30.3 L, RDW 14.5, Plt Count 451 H, MPV 7.9, Neut % (Auto) 88.7 H, Lymph % (Auto) 6.8 L, [place] % (Auto) 4.2, Eos % (Auto) 0.0 L, Baso % (Auto) 0.3, Neut # (Auto) 17.1 H, Lymph # (Auto) 1.3, [place] # (Auto) 0.8, Eos # (Auto) 0.0, Baso # (Auto) 0.1, Total Counted 100, Neutrophils % (Manual) 90 H, Lymphocytes % (Manual) 4 L, Monocytes % (Manual) 6, Platelet Estimate Slight increase, RBC Morphology Knp, Hypochromasia 1+, Anisocytosis 1+, Macrocytosis 1+ 02/27/22 05:42: Sodium 135 L, Potassium 4.4, Chloride 95 L, Carbon Dioxide 39 H, Anion Gap 5.4, BUN 25 H, Creatinine 0.60, Estimated Creat Clear 104, Estimated GFR 102, Est GFR ( Amer) 124, Glucose 116 H, Calcium 8.1 L, Phosphorus 3.1, Magnesium 2.1, Total Bilirubin 0.4, AST 34, ALT 15, Alkaline Phosphatase 123, Total Protein 6.4, Albumin 3.1 L D, Globulin 3.3 H, Albumin/Globulin Ratio 0.9 L 02/27/22 06:00: VBG pH 7.51 H, VBG pCO2 40.7, VBG pO2 210.6 H, VBG HCO3 31.9 H, VBG Total CO2 33.1 H, VBG O2 Saturation 99.6 H, VBG Base Excess 8.9 H I & O for Labs for Last 24 Hours: Intake & Output 02/24/22 02/25/22 02/26/22 02/27/22 23:59 23:59 23:59 23:59 Intake Total 240 / 240 600 / 600 Output Total 0 / 0 1000 / 1000 Balance 240 / 240 -400 / -400 Weight 65.402 kg 65 kg Microbiology Reports for the Last 24 Hours: Microbiology 02/26/22 09:45 Sputum - Expectorated Sputum Gram Stain - Final Constitutional: Present mild distress and chronically ill appearing Head: Present atraumatic and normocephalic ENT: Present normal exam Neck: Present normal inspection Respiratory: Present accessory muscle use, wheezes and crackles; Absent rhonchi Cardiac: Present Reg Rate and Rhythm GI: Present normal bowel sounds; Absent tenderness Extremities: Present normal inspection and full ROM Skin: Present intact; Absent erythema Neuro: Present G
--- NOTE | 2022-02-27 17:54 | PC.NURSE ---
Vapotherm wened to 30L50%. VS stable. Patient able to use bedside commode but has incontinent episodes while coughing. lungs sound diminished, some inspiratory rhonchi. Pain medications given for pain in legs. No other changes noted.
[2022-02-28] VITALS (15 sets, daily range): BP systolic 101–167; BP diastolic 57–86; PULSE 50–89; RESP 16–20; TEMP 36.6–37.1; O2SAT 90–96; BMI 22.4
--- NOTE | 2022-02-28 02:51 | PC.NURSE ---
Addendum entered by Park Guerrero RN 02/28/22 02:57: Vapotherm Original Note: Pt has been awake most of night, family at bedside. A/O X 3. Pt has had a shower, 02 drops to 80's without vaso therm. Pt has requested pain medication earlier in shift. Has been compliant with plan of care. Pt educated on medications. Lungs hd some wheezes this morning, diminished. Resp has been even and non labored at rest. IV is patent, pt encouraged to report any needs. Bed locked in low position, side rails up x 2, call light in reach.
[2022-02-28 06:53] LABS: Basophils # 0.2 K/mm3 (0-0.2); Eosinophils % 0.1 % (0.1-12.0); Hematocrit 40.9 % (37.0-47.0); Lymphocytes # 2.1 K/mm3 (0.7-4.5); Lymphocytes % 12.4 % (10-50); Mean Corpuscular HGB Conc 31.7 g/dL (31.8-35.4); Mean Corpuscular Hemoglobin 33.3 pg (27.0-31.2); Mean Corpuscular Volume 105.2 fl (81-99); Mean Platelet Volume 8.3 fl (7.4-10.4); Monocytes # 0.7 K/mm3 (0.1-1.0); Monocytes % 4.2 % (1.7-9.3); Neutrophils # 13.7 K/mm3 (1.8-7.8); Neutrophils % 82.2 % (37.0-80.0); Platelet Count 438 K/mm3 (142-424); Red Blood Count 3.89 M/mm3 (4.20-5.40); Red Cell Distribution Width 14.6 % (11.5-17.5); White Blood Count 16.7 K/mm3 (4.8-10.8)
[2022-02-28 06:57] LABS: MANUAL DIFFERENTIAL MANUAL DIFFERENTIAL (MANUAL DIFF)
[2022-02-28 07:08] LABS: Alanine Aminotransferase 11 U/L (12-78); Albumin Level 2.9 g/dl (3.5-5.0); Albumin/Globulin Ratio 0.9 (1.1-1.8); Alkaline Phosphatase 114 U/L (38-126); Aspartate Amino Transferase 32 U/L (14-36); Bilirubin,Total 0.5 mg/dl (0.2-1.3); Blood Urea Nitrogen 27 mg/dl (7-17); Calcium 8.1 mg/dl (8.4-10.2); Carbon Dioxide 35 mmol/L (22.0-30.0); Chloride 95 mmol/L (98-107); Creatinine Clearance Estimated 121 mL/min (50-200); Estimated Glomerular Filt Rate 126 ml/min (>60); GFR (African American) 153 ML/MIN (>60); Globulin 3.1 g/dL (1.3-3.2); Glucose 93 mg/dl (74-100); Phosphorous 3.8 mg/dl (2.5-4.5); Sodium 134 mmol/L (136-145)
[2022-02-28 08:11] LABS: Lymphocytes % 13 % (10-50); Macrocytosis 1+; Monocytes % 1 % (2-9); Neutrophils % 86 % (42-76); Platelet Estimate Slight Increase; Total Cells Counted 100
[2022-02-28 10:35] LABS: Vancomycin,Trough 6.1 ug/mL (5.0-10.0)
--- NOTE | 2022-02-28 13:27 | EXP.PHA.CONS ---
Pharmacy Consult Date: 02/28/22 Time: 13:27 Referring provider: DR CAMP Reason for Consult:: VANCOMYCIN TROUGH LEVEL OBTAINED Allergies Allergy/AdvReac Type Severity Reaction Status Date / Time lansoprazole [From PREVACID] Allergy Intermediate Palpitation Verified 01/24/22 14:43 s omeprazole [From PRILOSEC] Allergy Intermediate Palpitation Verified 01/24/22 14:43 s [id number] Reductase AdvReac Intermediate Muscle Pain Verified 01/24/22 14:43 Inhibitor atorvastatin AdvReac Cramping Verified 01/24/22 14:43 of the Muscles Home Medications Medication Instructions Recorded Confirmed Type albuterol sulfate 90 mcg/actuation 1 inh inhalation Q6HP PRN 01/24/22 02/26/22 Rx aerosol inhaler Shortness Of Breath #1 g aspirin 81 mg tablet,delayed 81 mg PO DAILY HEART HEALTH 02/26/22 02/26/22 History release (Adult Aspirin Regimen) bisoprolol fumarate 5 mg tablet 5 mg PO DAILY Hypertension 02/26/22 02/26/22 History clonazepam 0.5 mg tablet (Klonopin) 0.5 mg PO BID Anxiety 02/26/22 02/26/22 History esomeprazole magnesium 20 mg 20 mg PO DAILY GERD 02/26/22 02/26/22 History capsule,delayed release gabapentin 800 mg tablet 800 mg PO QID Pain 02/26/22 02/26/22 History levothyroxine 25 mcg tablet 25 mcg PO DAILY THYROID 02/26/22 02/26/22 History meclizine 25 mg tablet 25 mg PO TIDP PRN Dizziness 02/26/22 02/26/22 History oxycodone-acetaminophen 10 mg-325 1 tab PO QIDP PRN Moderate Pain 02/26/22 02/26/22 History mg tablet (Percocet) (Scale Score 5-6) rivaroxaban 2.5 mg tablet (Xarelto) 2.5 mg PO BID PAD 02/26/22 02/26/22 History rosuvastatin 40 mg tablet (Crestor) 40 mg PO DAILY Cholesterol 02/26/22 02/26/22 History New Prescriptions to Start Prescriptions: Height: 1.68 m Weight: 63.191 kg Laboratory Results:: Laboratory Results - last 24 hr 02/28/22 06:32: WBC 16.7 H, RBC 3.89 L, Hgb 13.0, Hct 40.9, MCV 105.2 H, MCH 33.3 H, MCHC 31.7 L, RDW 14.6, Plt Count 438 H, MPV 8.3, Neut % (Auto) 82.2 H, Lymph % (Auto) 12.4, [place] % (Auto) 4.2, Eos % (Auto) 0.1, Baso % (Auto) 1.0, Neut # (Auto) 13.7 H, Lymph # (Auto) 2.1, [place] # (Auto) 0.7, Eos # (Auto) 0.0, Baso # (Auto) 0.2, Total Counted 100, Neutrophils % (Manual) 86 H, Lymphocytes % (Manual) 13, Monocytes % (Manual) 1 L, Platelet Estimate Slight increase, Macrocytosis 1+ 02/28/22 06:32: Sodium 134 L, Potassium 4.0, Chloride 95 L, Carbon Dioxide 35 H, Anion Gap 8.0, BUN 27 H, Creatinine 0.50 L, Estimated Creat Clear 121, Estimated GFR 126, Est GFR ( Amer) 153 D, Glucose 93, Calcium 8.1 L, Phosphorus 3.8, Total Bilirubin 0.5, AST 32, ALT 11 L D, Alkaline Phosphatase 114, Total Protein 6.0 L, Albumin 2.9 L, Globulin 3.1, Albumin/Globulin Ratio 0.9 L 02/28/22 10:01: Vancomycin Trough 6.1 Medical History: Medical History (Updated 02/27/22 @ 17:35 by Stanislaw Camp MD) Anxiety disorder COPD (chronic obstructive pulmonary disease) Femoral artery occlusion Femoral artery occlusion Hypothyroidism PAD (peripheral artery disease) Tobacco abuse Assessment and Plan Assessment and plan all Dx Assessment and Plan for all problems:: Pharmacokinetic dosing service Weight: 63.503 Kilograms Vancomycin single level analysis: Current dose being given: 1250 mg Current dosing interval: 18 hrs Current infusion time (hrs): 2 Single level Trough Data: Trough level obtained: 6.1 mcg/ml Timing of trough - # of hrs before next dose: 0.5 Hrs Desired peak: 35 mcg/ml Desired trough: 12.5 mcg/ml Estimated PK Parameters: New rate constant (elsie): 0.099 hr-1 Half-life: 7.00 Hours Vd from levels: 44.45 Liters (0.7 L/kg) CLvanco=?? 4.401 L/hr Estimated New Dose and Interval Recommended dose: 1212.4 mg Recommended interval: 12.4 Hrs Recommendations: Give Vancomycin 1250 mg q 12 hrs. Infuse over 2 hrs Expected Cpeak: 36.7 mcg/mL E
--- NOTE | 2022-02-28 17:21 | EXP.ACUTE.PN ---
Subjective *Date: 02/28/22 *Time: 17:21 Interval history: States she feels marginally better today. Dyspnea somewhat improving. Denies nausea, chest pain, vomiting, diarrhea. Tolerating p.o. intake. Difficulty ambulating or getting around room due to short hose on Vapotherm. Weaned to 50% Vapotherm on rounds with saturations greater 90%. Hemodynamically stable. Afebrile Medical Exam Vital signs and Labs for Last 24 Hours: Vital Signs Temp Pulse Pulse Resp BP Pulse Ox FiO2 02/28/22 16:00 90 L 50 02/28/22 16:00 98.0 F 56 L 18 124/72 90 L 02/28/22 12:00 53 L 02/28/22 11:58 98.3 F 60 18 167/86 H 94 L 02/28/22 11:05 53 L 02/28/22 11:05 54 L 02/28/22 11:05 91 L 50 02/28/22 08:00 60 02/28/22 08:00 98.2 F 74 20 109/68 L 90 L 02/28/22 07:45 90 L 60 02/28/22 07:43 90 L 60 02/28/22 04:00 70 02/28/22 00:00 50 L 02/27/22 20:00 50 L 02/28/22 06:07 67 02/28/22 06:07 69 02/28/22 06:07 96 70 02/28/22 04:00 98.0 F 84 20 150/82 H 91 L 02/28/22 00:00 98.8 F 54 L 18 147/68 H 93 L 02/28/22 00:05 75 02/28/22 00:05 71 02/27/22 20:00 98.3 F 55 L 16 158/81 H 96 02/27/22 18:43 70 02/27/22 18:43 65 02/27/22 18:42 65 Intake and Output 02/28/22 02/28/22 02/28/22 07:59 15:59 23:59 Intake Total 60 / 60 Output Total 150 / 150 Balance -150 / -90 60 / -90 Intake: Intake, Oral Amount 60 / 60 Output: Output, Urine Amount 150 / 150 Other: Number of Unmeasured Voids 1 Weight 63.191 kg 63.191 kg Patient Weight 02/28/22 23:59 Weight 63.191 kg Laboratory Results - last 24 hr 02/28/22 06:32: WBC 16.7 H, RBC 3.89 L, Hgb 13.0, Hct 40.9, MCV 105.2 H, MCH 33.3 H, MCHC 31.7 L, RDW 14.6, Plt Count 438 H, MPV 8.3, Neut % (Auto) 82.2 H, Lymph % (Auto) 12.4, [place] % (Auto) 4.2, Eos % (Auto) 0.1, Baso % (Auto) 1.0, Neut # (Auto) 13.7 H, Lymph # (Auto) 2.1, [place] # (Auto) 0.7, Eos # (Auto) 0.0, Baso # (Auto) 0.2, Total Counted 100, Neutrophils % (Manual) 86 H, Lymphocytes % (Manual) 13, Monocytes % (Manual) 1 L, Platelet Estimate Slight increase, Macrocytosis 1+ 02/28/22 06:32: Sodium 134 L, Potassium 4.0, Chloride 95 L, Carbon Dioxide 35 H, Anion Gap 8.0, BUN 27 H, Creatinine 0.50 L, Estimated Creat Clear 121, Estimated GFR 126, Est GFR ( Amer) 153 D, Glucose 93, Calcium 8.1 L, Phosphorus 3.8, Total Bilirubin 0.5, AST 32, ALT 11 L D, Alkaline Phosphatase 114, Total Protein 6.0 L, Albumin 2.9 L, Globulin 3.1, Albumin/Globulin Ratio 0.9 L 02/28/22 10:01: Vancomycin Trough 6.1 I & O for Labs for Last 24 Hours: Intake & Output 02/25/22 02/26/22 02/27/22 02/28/22 23:59 23:59 23:59 23:59 Intake Total 240 / 240 600 / 600 60 / 60 Output Total 0 / 0 1000 / 1000 150 / 150 Balance 240 / 240 -400 / -400 -90 / -90 Weight 65.402 kg 65 kg 63.191 kg Microbiology Reports for the Last 24 Hours: Microbiology 02/26/22 09:45 Sputum - Expectorated Sputum Gram Stain - Final 02/26/22 09:45 Sputum - Expectorated Sputum Sputum Culture - Preliminary 02/26/22 01:40 Blood Blood Culture - Preliminary NO GROWTH AFTER 48 HOURS 02/26/22 01:40 Blood Blood Culture - Preliminary NO GROWTH AFTER 48 HOURS Constitutional: Present mild distress and chronically ill appearing Head: Present atraumatic and normocephalic ENT: Present normal exam Neck: Present normal inspection Respiratory: Present accessory muscle use, wheezes and crackles; Absent rhonchi Cardiac: Present Reg Rate and Rhythm GI: Present normal bowel sounds; Absent tenderness Extremities: Present normal inspection and full ROM Skin: Present intact; Absent erythema Neuro: Present Grossly Intact, alert, awake, oriented x 3 and moves all extremities Assessment and Plan *Assessment and plan (1) Sepsis: Statu
--- NOTE | 2022-02-28 19:49 | PC.NURSE ---
PT IS RESTING IN BED. ALERT AND ORIENTED X4. PT HAS BEEN VERY DROWSY THIS SHIFT BUT WILL AWAKEN EASILY AND FOLLOW COMMANDS. O2 SATURATION HAS MAINTAINED 90-93% ON VAPOTHERM 30 L 50% FIO2. LUNG SOUNDS HAVE SCATTERED WHEEZES/RHONCHI. ABDOMEN SOFT/NON TENDER WITH ACTIVE BOWEL SOUNDS. WILL CONTINUE TO MONITOR.
[2022-03-01] VITALS (13 sets, daily range): BP systolic 106–156; BP diastolic 54–92; PULSE 55–74; RESP 16–21; TEMP 36.4–37.3; O2SAT 88–95; BMI 22.4
--- NOTE | 2022-03-01 03:13 | PC.NURSE ---
Pt laying in bed resting at this time, has been A/O x 3, daughter at bedside. Pt has shortness of air on exertion. Lungs diminished Bilat. Resp even and non labored at rest. Pt has been incontinent of urine this shift. Has had PRN pain medications. IV is patent, encouraged pt to report any needs. Bed locked in low position, side rails up x 2, call light in reach
[2022-03-01 07:42] LABS: Basophils # 0.1 K/mm3 (0-0.2); Basophils % 0.7 % (0.1-2.0); Eosinophils % 0.4 % (0.1-12.0); Hematocrit 43.1 % (37.0-47.0); Hemoglobin 13.1 g/dL (12.2-16.2); Lymphocytes # 2.1 K/mm3 (0.7-4.5); Lymphocytes % 21.5 % (10-50); Mean Corpuscular HGB Conc 30.4 g/dL (31.8-35.4); Mean Corpuscular Hemoglobin 32.4 pg (27.0-31.2); Mean Corpuscular Volume 106.6 fl (81-99); Mean Platelet Volume 8.7 fl (7.4-10.4); Monocytes # 0.5 K/mm3 (0.1-1.0); Monocytes % 5.3 % (1.7-9.3); Neutrophils # 7.1 K/mm3 (1.8-7.8); Neutrophils % 72.2 % (37.0-80.0); Platelet Count 409 K/mm3 (142-424); Red Blood Count 4.04 M/mm3 (4.20-5.40); Red Cell Distribution Width 14.5 % (11.5-17.5); White Blood Count 9.8 K/mm3 (4.8-10.8)
[2022-03-01 07:48] LABS: Alanine Aminotransferase 13 U/L (12-78); Albumin Level 2.8 g/dl (3.5-5.0); Albumin/Globulin Ratio 0.9 (1.1-1.8); Alkaline Phosphatase 113 U/L (38-126); Aspartate Amino Transferase 37 U/L (14-36); Bilirubin,Total 0.5 mg/dl (0.2-1.3); Blood Urea Nitrogen 23 mg/dl (7-17); Carbon Dioxide 32 mmol/L (22.0-30.0); Chloride 100 mmol/L (98-107); Creatinine Clearance Estimated 121 mL/min (50-200); Estimated Glomerular Filt Rate 126 ml/min (>60); GFR (African American) 153 ML/MIN (>60); Glucose 96 mg/dl (74-100); Phosphorous 3.4 mg/dl (2.5-4.5); Sodium 134 mmol/L (136-145); Total Protein,Serum 5.8 g/dl (6.3-8.2)
--- NOTE | 2022-03-01 13:05 | EXP.PHA.PN ---
Subjective *Date: 03/01/22 *Time: 13:05 Medical Exam Vital signs and Labs for Last 24 Hours: Vital Signs Temp Pulse Pulse Resp BP Pulse Ox FiO2 03/01/22 11:15 97.8 F 57 L 21 106/54 L 03/01/22 08:00 40 03/01/22 08:00 73 03/01/22 08:00 99.1 F 64 17 156/92 H 95 03/01/22 06:31 89 L 50 03/01/22 04:00 55 L 03/01/22 04:00 97.6 F 57 L 16 148/69 H 92 L 03/01/22 00:00 67 02/28/22 20:00 63 02/28/22 23:45 97.9 F 61 16 101/57 L 93 L 02/28/22 23:21 67 02/28/22 23:21 67 02/28/22 20:00 98.4 F 62 16 145/73 H 93 L 02/28/22 18:44 89 02/28/22 18:44 84 02/28/22 18:44 91 L 50 02/28/22 16:00 90 L 50 02/28/22 16:00 98.0 F 56 L 18 124/72 90 L Intake and Output 02/28/22 03/01/22 03/01/22 23:59 07:59 15:59 Intake Total 180 / 240 0 / 0 Output Total 0 / 150 0 / 100 100 / 100 Balance 180 / 90 0 / -100 -100 / -100 Intake: Intake, Oral Amount 180 / 240 0 / 0 Output: Output, Urine Amount 0 / 150 0 / 100 100 / 100 Other: Number of Unmeasured Voids 1 1 1 Weight 63.276 kg Patient Weight 03/01/22 23:59 Weight 63.276 kg Laboratory Results - last 24 hr 03/01/22 06:36: WBC 9.8 D, RBC 4.04 L, Hgb 13.1, Hct 43.1, MCV 106.6 H, MCH 32.4 H, MCHC 30.4 L, RDW 14.5, Plt Count 409, MPV 8.7, Neut % (Auto) 72.2, Lymph % (Auto) 21.5, [place] % (Auto) 5.3, Eos % (Auto) 0.4, Baso % (Auto) 0.7, Neut # (Auto) 7.1, Lymph # (Auto) 2.1, [place] # (Auto) 0.5, Eos # (Auto) 0.0, Baso # (Auto) 0.1 03/01/22 06:36: Sodium 134 L, Potassium 4.0, Chloride 100, Carbon Dioxide 32 H, Anion Gap 6.0, BUN 23 H, Creatinine 0.50 L, Estimated Creat Clear 121, Estimated GFR 126, Est GFR ( Amer) 153, Glucose 96, Calcium 8.0 L, Phosphorus 3.4, Total Bilirubin 0.5, AST 37 H, ALT 13, Alkaline Phosphatase 113, Total Protein 5.8 L, Albumin 2.8 L, Globulin 3.0, Albumin/Globulin Ratio 0.9 L I & O for Labs for Last 24 Hours: Intake & Output 02/26/22 02/27/22 02/28/22 03/01/22 23:59 23:59 23:59 23:59 Intake Total 240 / 240 600 / 600 240 / 240 0 / 0 Output Total 0 / 0 1000 / 1000 150 / 150 100 / 100 Balance 240 / 240 -400 / -400 90 / 90 -100 / -100 Weight 65.402 kg 65 kg 63.191 kg 63.276 kg Microbiology Reports for the Last 24 Hours: Microbiology 02/26/22 09:45 Sputum - Expectorated Sputum Gram Stain - Final 02/26/22 09:45 Sputum - Expectorated Sputum Sputum Culture - Final Normal Respiratory Diane The patient's infection will respond to the chosen ABx?: Yes Is the patient receiving the right drug, dose, and route?: Yes Could a more targeted ABx be ordered?: No (NORMAL DIANE SPUTUM, BLOOD CX -X2. WBC DOWN WNL NOW.)
--- NOTE | 2022-03-01 17:32 | PC.NURSE ---
PT IS RESTING IN BED. ALERT AND ORIENTED X4. PT TOLERATED SITTING UP IN THE CHAIR FOR SEVERAL HOURS THIS SHIFT. EATING AND DRINKING WELL. MEDICATED PER MAR FOR DISCOMFORT. LUNG SOUNDS HAVE SCATTERED WHEEZES/RHONCHI. ABDOMEN SOFT/NON TENDER WITH ACTIVE BOWEL SOUNDS. WILL CONTINUE TO MONITOR.
--- NOTE | 2022-03-01 18:40 | EXP.ACUTE.PN ---
Subjective *Date: 03/01/22 *Time: 18:40 Interval history: Patient motivated to go home in the coming days. Got out of bed this morning to bedside chair. Decreased to 40% Vapotherm at 30 L this morning on rounds with sats in the low 90s. Denies nausea, chest pain, vomiting, diarrhea. Shortness of breath somewhat improving. Wants to get home to family. Remains afebrile and hemodynamically stable. Tolerating p.o. intake. Medical Exam Vital signs and Labs for Last 24 Hours: Vital Signs Temp Pulse Pulse Resp BP Pulse Ox FiO2 03/01/22 18:36 74 03/01/22 18:36 64 03/01/22 18:36 90 L 40 03/01/22 16:00 57 L 03/01/22 16:00 40 03/01/22 15:21 98.7 F 64 20 134/76 95 03/01/22 12:00 70 03/01/22 13:36 88 L 40 03/01/22 12:40 71 03/01/22 12:40 72 03/01/22 11:15 97.8 F 57 L 21 106/54 L 03/01/22 08:00 40 03/01/22 08:00 73 03/01/22 08:00 99.1 F 64 17 156/92 H 95 03/01/22 06:31 89 L 50 03/01/22 04:00 55 L 03/01/22 04:00 97.6 F 57 L 16 148/69 H 92 L 03/01/22 00:00 67 02/28/22 20:00 63 02/28/22 23:45 97.9 F 61 16 101/57 L 93 L 02/28/22 23:21 67 02/28/22 23:21 67 02/28/22 20:00 98.4 F 62 16 145/73 H 93 L 02/28/22 18:44 89 02/28/22 18:44 84 02/28/22 18:44 91 L 50 Intake and Output 03/01/22 03/01/22 03/01/22 07:59 15:59 23:59 Intake Total 480 / 823 343 / 823 Output Total 0 / 1050 850 / 1050 200 / 1050 Balance 0 / -227 -370 / -227 143 / -227 Intake: Intake, Oral Amount 480 / 480 Intake, Total IV Amount 343 / 343 Cefepime HCl 2 gm In 0.9 % 95 / 95 Sodium Chloride 100 ml @ 200 mls/hr IV Q8H [facility] Rx#:[id number] Vancomycin/Water For Inj (Peg) 248 / 248 1.25 gm In 250 ml @ 125 mls/hr IV Q12H [facility] Rx#:[id number] Output: Output, Urine Amount 0 / 1050 850 / 1050 200 / 1050 Other: Number of Unmeasured Voids 1 1 Weight 63.276 kg Patient Weight 03/01/22 23:59 Weight 63.276 kg Laboratory Results - last 24 hr 03/01/22 06:36: WBC 9.8 D, RBC 4.04 L, Hgb 13.1, Hct 43.1, MCV 106.6 H, MCH 32.4 H, MCHC 30.4 L, RDW 14.5, Plt Count 409, MPV 8.7, Neut % (Auto) 72.2, Lymph % (Auto) 21.5, [place] % (Auto) 5.3, Eos % (Auto) 0.4, Baso % (Auto) 0.7, Neut # (Auto) 7.1, Lymph # (Auto) 2.1, [place] # (Auto) 0.5, Eos # (Auto) 0.0, Baso # (Auto) 0.1 03/01/22 06:36: Sodium 134 L, Potassium 4.0, Chloride 100, Carbon Dioxide 32 H, Anion Gap 6.0, BUN 23 H, Creatinine 0.50 L, Estimated Creat Clear 121, Estimated GFR 126, Est GFR ( Amer) 153, Glucose 96, Calcium 8.0 L, Phosphorus 3.4, Total Bilirubin 0.5, AST 37 H, ALT 13, Alkaline Phosphatase 113, Total Protein 5.8 L, Albumin 2.8 L, Globulin 3.0, Albumin/Globulin Ratio 0.9 L I & O for Labs for Last 24 Hours: Intake & Output 02/26/22 02/27/22 02/28/22 03/01/22 23:59 23:59 23:59 23:59 Intake Total 240 / 240 600 / 600 240 / 240 823 / 823 Output Total 0 / 0 1000 / 1000 150 / 150 1050 / 1050 Balance 240 / 240 -400 / -400 90 / 90 -227 / -227 Weight 65.402 kg 65 kg 63.191 kg 63.276 kg Microbiology Reports for the Last 24 Hours: Microbiology 02/26/22 09:45 Sputum - Expectorated Sputum Gram Stain - Final 02/26/22 09:45 Sputum - Expectorated Sputum Sputum Culture - Final Normal Respiratory Diane Constitutional: Present mild distress and chronically ill appearing Head: Present atraumatic and normocephalic ENT: Present normal exam Neck: Present normal inspection Respiratory: Present accessory muscle use, wheezes and crackles; Absent rhonchi Cardiac: Present Reg Rate and Rhythm GI: Present normal bowel sounds; Absent tenderness Extremities: Present normal inspection and full ROM Skin: Present intact; Absent erythema Neuro: Present Grossly Intact, alert, awake, oriented x 3 and moves all extremities Assessment a
[2022-03-02] VITALS (8 sets, daily range): BP systolic 106–134; BP diastolic 53–95; PULSE 57–87; RESP 18–20; TEMP 36.7–37; O2SAT 91–100; BMI 23.1
--- NOTE | 2022-03-02 04:11 | PC.NURSE ---
PATIENT'S DAUGHTER SPENT THE NIGHT WITH HER MOTHER. DAUGHTER ANGRY BECAUSE I TURNED LIGHT ON TO FLUSH SALINE LOCK AND BEGIN CEFIPIME IVAB. PATIENT WANTED ME TO TURN THE LIGHT OUT BUT I EXPLAINED I WOULD TURN THE LIGHT OUT ONCE INFUSION WAS GOING. PATIENT COMPLAINED THAT HER DAUGHTER HAD TO GET UP EARLY AND TRAVEL HOME AND THAT SHE NEEDED TO SLEEP. I EXPLAINED THAT I CAN NOT SAFELY MOVE ABOUT IN A DARK ROOM ESPECIALLY WALKING OVER A FAN. ALSO EXPLAINED THAT I NEEDED TO SEE THE IV SITE TO MAKE SURE IT FLUSHES WELL AND IS NOT INFILTRATING. PATIENT STATED, THATS A BUNCH OF HORSE SHIT.
--- NOTE | 2022-03-02 05:06 | PC.NURSE ---
PATIENT DID NOT GET HER FULL 2300 DOSE OF VANCOMYCIN SOMEONE STOPPED THE INFUSION AND DISCONNECTED THE IV LINE FROM THE PATIENT AND DID NOT HAVE THE INFUSION RESTARTED. THE MOST LIKELY PERSON WAS THE DAUGHTER SHE WAS THERE ASSISTING HER MOTHER TO THE BATHROOM.
[2022-03-02 06:35] LABS: Basophils # 0.1 K/mm3 (0-0.2); Basophils % 0.5 % (0.1-2.0); Eosinophils # 0.1 K/mm3 (0.0-0.4); Eosinophils % 0.7 % (0.1-12.0); Hematocrit 41.7 % (37.0-47.0); Hemoglobin 12.9 g/dL (12.2-16.2); Lymphocytes # 2.3 K/mm3 (0.7-4.5); Lymphocytes % 21.1 % (10-50); Mean Corpuscular HGB Conc 30.9 g/dL (31.8-35.4); Mean Corpuscular Hemoglobin 32.8 pg (27.0-31.2); Mean Corpuscular Volume 106.1 fl (81-99); Mean Platelet Volume 7.9 fl (7.4-10.4); Monocytes # 0.6 K/mm3 (0.1-1.0); Monocytes % 5.6 % (1.7-9.3); Neutrophils # 7.9 K/mm3 (1.8-7.8); Platelet Count 435 K/mm3 (142-424); Red Blood Count 3.93 M/mm3 (4.20-5.40); Red Cell Distribution Width 14.3 % (11.5-17.5); White Blood Count 10.9 K/mm3 (4.8-10.8)
[2022-03-02 06:48] LABS: Anion Gap 7.8 mEq/L (5-15); Blood Urea Nitrogen 14 mg/dl (7-17); Calcium 8.2 mg/dl (8.4-10.2); Carbon Dioxide 31 mmol/L (22.0-30.0); Chloride 100 mmol/L (98-107); Creatinine Clearance Estimated 156 mL/min (50-200); Estimated Glomerular Filt Rate 163 ml/min (>60); GFR (African American) 198 ML/MIN (>60); Glucose 105 mg/dl (74-100); Magnesium 1.8 mg/dl (1.6-2.3); Potassium 3.8 mmoL/L (3.5-5.1); Sodium 135 mmol/L (136-145)
[2022-03-02 07:51] LABS: Erythrocyte Sedimentation Rate 59 mm/hr (0-30)
[2022-03-02 11:04] LABS: Vancomycin,Trough 6.6 ug/mL (5.0-10.0)
--- NOTE | 2022-03-02 11:57 | EXP.DC.SUM ---
General Admission date:: 02/26/22 Discharge date: 03/02/22 HPI HPI HPI: Ms. Eckert is a 61-year-old female with a past medical history of COPD, tobacco abuse, PAD on Doac, Hypothryroidism. She presents to [facility] due to weakness, chills, body aches x 5 days associated with progressing shortness of air and productive cough over the last day. The patient was seen in the ER on admission, daughter was at bedside and gave information. They deny similar sick contacts or otc medications for symptoms. They report that her symptoms became severe over the last day so she came into the ER for evaluation. In the ER, the patient was noted to be hypoxic on arrival only saturating 77% on room air. ABG obtained showed a pCO2 of 66.7 and pO 2 of 40.7 with spO2 of 76%. She was placed on BIPAP. Cxray was concerning for bilateral lower lobe infiltrates. CTA obtained showed extensive tree in bud changes with patchy ground glass opacities in the bilateral upper lobes. Covid and Flu testing were negative. CBC showed an elevated WBC at 26.6. The patient will be admitted with initial impression: Sepsis, Acute Hypoxic and Hypercapnic Respiratory Failure and Pneumonia. She will be placed on broad spectrum antibiotics, cultures obtained. She has been given fluids in the ER. Repeat ABG will be obtained after being on the BIPAP for evaluation and further treatment. The plan of care was discussed with the patient and patient's daughter upon evaluation in the ER. Both verbalized understanding and agreement with the plan of care. Hospital Course Hospital Course Hospital Course: 61-year-old female with pmh of COPD, h/o tobacco abuse, reports recently quit smoking, PAD, Anxiety Disorder and Hypothyroidsm presents with 5-day reported history of weakness, feeling ill, body aches chills, and 1 day history of extreme shortness of air and productive cough.? Clinically improving.? Weaning oxygen as tolerated.? Problems addressed as follows Sepsis, resolved Acute on chronic hypoxemic respiratory failure COPD with exacerbation Pneumonia -Initially admitted for sepsis and hypoxemic respiratory failure. Required significant respiratory support with Vapotherm. Started on broad-spectrum antibiotics including vancomycin and cefepime. Gradually weaned antibiotics on day of discharge to Levaquin. Will complete a total of 7 days of antibiotics and steroids. Patient able to wean respiratory/oxygen support to 3 L nasal cannula on day of discharge. Tolerating well with saturations in the low 90s. Plan to continue duo nebs every 6 hours at home as needed. Nebulizer ordered for patient on discharge. White count had normalized 48 hours before discharge. Remainder of labs overall showing significant improvement. Discussed smoking cessation with patient, sent home with nicotine patches. Continue home inhalers. Patient medically stable for discharge home to continue to improve. Stressed the importance of continuous oxygen wearing until following up with her PCP where they can discuss further weaning. Patient states understanding - Hypothyroidism Continue Levothyroxine - PAD -CAD Discussed case with cardiology, no interventions planned at this time. Continued oral anticoagulation. In light of normal echo, would benefit from outpatient stress test per cardiology. We will have patient follow-up with cardiology in the coming weeks for further evaluation and work-up. Patient stable for discharge home with plan for outpatient follow-up Exam Data for Last 24 hours Vital signs and Labs for Last 24 Hours: Temp Pulse Resp BP Pulse Ox FiO2 98.5 F 71 20 116/63 92 L 40 03/02/22 08:00 03/02/22 08:00 03/02/22 08:00 03/02/22 08:00 03/02/22 08:00 03/01/22 18:36 Laboratory Results - last 24 hr 03/02/22 06:18: WBC 10.9 H, RBC 3.93 L, Hgb 12.9, Hct 41.7, MCV 106.1 H, MCH 32.8 H, MCHC 30.9 L, RDW 14.3, Plt Count 435 H, MPV 7.9, Neut % (Aut
--- NOTE | 2022-03-02 12:11 | P.CONPHA_ITS ---
Pharmacy Consult Date: 03/02/22 Time: 12:11 Referring provider: DR. CAMP Reason for Consult:: VANCOMYCIN LEVEL Allergies Allergy/AdvReac Type Severity Reaction Status Date / Time lansoprazole [From PREVACID] Allergy Intermediate Palpitation Verified 01/24/22 14:43 s omeprazole [From PRILOSEC] Allergy Intermediate Palpitation Verified 01/24/22 14:43 s [id number] Reductase AdvReac Intermediate Muscle Pain Verified 01/24/22 14:43 Inhibitor atorvastatin AdvReac Cramping Verified 01/24/22 14:43 of the Muscles Home Medications Medication Instructions Recorded Confirmed Type albuterol sulfate 90 mcg/actuation 1 inh inhalation Q6HP PRN 01/24/22 02/26/22 Rx aerosol inhaler Shortness Of Breath #1 g aspirin 81 mg tablet,delayed 81 mg PO DAILY HEART HEALTH 02/26/22 02/26/22 History release (Adult Aspirin Regimen) bisoprolol fumarate 5 mg tablet 5 mg PO DAILY Hypertension 02/26/22 02/26/22 History clonazepam 0.5 mg tablet (Klonopin) 0.5 mg PO BID Anxiety 02/26/22 02/26/22 History esomeprazole magnesium 20 mg 20 mg PO DAILY GERD 02/26/22 02/26/22 History capsule,delayed release gabapentin 800 mg tablet 800 mg PO QID Pain 02/26/22 02/26/22 History levothyroxine 25 mcg tablet 25 mcg PO DAILY THYROID 02/26/22 02/26/22 History meclizine 25 mg tablet 25 mg PO TIDP PRN Dizziness 02/26/22 02/26/22 History oxycodone-acetaminophen 10 mg-325 1 tab PO QIDP PRN Moderate Pain 02/26/22 02/26/22 History mg tablet (Percocet) (Scale Score 5-6) rivaroxaban 2.5 mg tablet (Xarelto) 2.5 mg PO BID PAD 02/26/22 02/26/22 History rosuvastatin 40 mg tablet (Crestor) 40 mg PO DAILY Cholesterol 02/26/22 02/26/22 History New Prescriptions to Start Prescriptions: Height: 1.68 m Weight: 65.227 kg Laboratory Results:: Laboratory Results - last 24 hr 03/02/22 06:18: WBC 10.9 H, RBC 3.93 L, Hgb 12.9, Hct 41.7, MCV 106.1 H, MCH 32.8 H, MCHC 30.9 L, RDW 14.3, Plt Count 435 H, MPV 7.9, Neut % (Auto) 72.0, Lymph % (Auto) 21.1, [place] % (Auto) 5.6, Eos % (Auto) 0.7, Baso % (Auto) 0.5, Neut # (Auto) 7.9 H, Lymph # (Auto) 2.3, [place] # (Auto) 0.6, Eos # (Auto) 0.1, Baso # (Auto) 0.1, ESR 59 H 03/02/22 06:18: Sodium 135 L, Potassium 3.8, Chloride 100, Carbon Dioxide 31 H, Anion Gap 7.8, BUN 14 D, Creatinine 0.40 L, Estimated Creat Clear 156, Estimated GFR 163, Est GFR ( Amer) 198 D, Glucose 105 H, Calcium 8.2 L, Magnesium 1.8 03/02/22 10:10: Vancomycin Trough 6.6 Medical History: Medical History (Updated 02/27/22 @ 17:35 by Stanislaw Camp MD) Anxiety disorder COPD (chronic obstructive pulmonary disease) Femoral artery occlusion Femoral artery occlusion Hypothyroidism PAD (peripheral artery disease) Tobacco abuse Assessment and Plan Assessment and plan all Dx Assessment and Plan for all problems:: RECOMMEND CHANGING VANCOMYCIN DOSE TO 1250 MG Q8H AT THIS TIME.
--- NOTE | 2022-03-02 14:30 | CARE MANAGER ---
Patient now requires 3L supplemental O2 (normally on 2L). New order for 3L O2 and nebulizer machine faxed to [facility]. They plan to deliver to home.
--- NOTE | 2022-03-02 15:34 | PC.NURSE ---
[facility] JUST LEFT PT ROOM. PT READY FOR D/C JUST WAITING ON TRANSPORT. PT HAS CONTACTED FAMILY FOR TRANSPORT ETA UNKNOWN
[2022-03-04 16:07] LABS: Legionella pneumophila Urinary Negative (Negative)
[2022-03-06 16:51] LABS: Body Fluid Culture, Sterile Not indicated. (.); Organism ID Not indicated. (.); Specimen Source Urine (.); Streptococcus pneumoniae Ag Negative (Negative)
--- NOTE | 2022-03-07 13:06 | CARE MANAGER ---
Attempted to contact patient related to hospital discharge. VM box full. REBECCA Barragan
--- NOTE | 2022-03-09 15:11 | CARE MANAGER ---
Attempted to call patient to discuss post discharge status. Unable to reach her and VM is full.
== END 2022-03-02 18:10 | disposition home or self-care (01) | DRG 871 ==
LOC: ER 02:17 → 2ND 06:40 → ICU 11:16 → 2ND 02-27 16:44
PROVIDERS: Nurse Practitioner Family; Student in an Organized Health Care Education/Training Program; Admitting Provider Internal Medicine Adolescent Medicine; Emergency Provider Emergency Medicine; PCP Emergency Medicine; Visit Provider Internal Medicine Adolescent Medicine
DX: A41.9 Sepsis, unspecified organism (principal); J18.9 Pneumonia, unspecified organism; J96.01 Acute respiratory failure with hypoxia; J96.02 Acute respiratory failure with hypercapnia; J44.0 Chronic obstructive pulmonary disease with (acute) lower respiratory infection; E87.3 Alkalosis; J44.1 Chronic obstructive pulmonary disease with (acute) exacerbation; I73.9 Peripheral vascular disease, unspecified; E03.9 Hypothyroidism, unspecified; F41.9 Anxiety disorder, unspecified; Z87.891 Personal history of nicotine dependence
CPT/HCPCS: 36415; 71045; 71275; 80048; 80053; 80202; 81001; 82607; 82803; 83605; 83735; 83880; 84100; 84145; 84484; 85007; 85025; 85651; 86140; 87040; 87070; 87205; 87581; 87632; 87798; 87899; 93005; 93306; 94640; 94761; 99285; C9803; J0456; J0696; J2405; J3370; Q9967; U0003; U0005

== ENCOUNTER 2022-03-17 00:26 | Emergency (ER) | payer MEDICARE, SELFPAY ==
[2022-03-17 00:46] VITALS: BP 159/92; PULSE 127; RESP 18; TEMP 37.4; O2SAT 91; BMI 24.5
[2022-03-17 00:47] VITALS: BMI 32.9
[2022-03-17 01:00] VITALS: BP 100/62; PULSE 105; O2SAT 96
--- NOTE | 2022-03-17 01:02 | ECG_ITS ---
APPROVED REPORT Exam: Resting ECG HR:106 bpm ECG Measurements Heart Rate 106 AXES NC 149 P 55 QRSd 75 QRS 52 QT 345 T 45 QTc 407 Conclusion SINUS TACHYCARDIA ABNORMAL RHYTHM ECG UNCONFIRMED REPORT Electronically signed by : Julito Edmondson MD 03/17/2022 08:42:52
[2022-03-17 01:05] LABS: Basophils % 0.7 % (0.1-2.0); Eosinophils # 0.1 K/mm3 (0.0-0.4); Eosinophils % 2.4 % (0.1-12.0); Hematocrit 37.1 % (37.0-47.0); Hemoglobin 11.9 g/dL (12.2-16.2); Lymphocytes # 1.5 K/mm3 (0.7-4.5); Lymphocytes % 36.4 % (10-50); Mean Corpuscular HGB Conc 32.2 g/dL (31.8-35.4); Mean Corpuscular Hemoglobin 32.7 pg (27.0-31.2); Mean Corpuscular Volume 101.7 fl (81-99); Mean Platelet Volume 7.7 fl (7.4-10.4); Monocytes # 0.3 K/mm3 (0.1-1.0); Monocytes % 6.6 % (1.7-9.3); Neutrophils # 2.3 K/mm3 (1.8-7.8); Neutrophils % 53.9 % (37.0-80.0); Platelet Count 169 K/mm3 (142-424); Red Blood Count 3.65 M/mm3 (4.20-5.40); Red Cell Distribution Width 14.3 % (11.5-17.5); White Blood Count 4.2 K/mm3 (4.8-10.8)
[2022-03-17 01:10] LABS: Chloride 98 mmol/L (98-107)
[2022-03-17 01:11] LABS: Potassium 3.8 mmoL/L (3.5-5.1); Sodium 138 mmol/L (136-145)
[2022-03-17 01:13] LABS: Alanine Aminotransferase 21 U/L (12-78); Alkaline Phosphatase 103 U/L (38-126); Aspartate Amino Transferase 34 U/L (14-36); Bilirubin,Total 0.5 mg/dl (0.2-1.3); Blood Urea Nitrogen 2 mg/dl (7-17); Creatinine Clearance Estimated 130 mL/min (50-200); Estimated Glomerular Filt Rate 102 ml/min (>60); GFR (African American) 124 ML/MIN (>60)
[2022-03-17 01:14] LABS: Albumin Level 3.4 g/dl (3.5-5.0); Anion Gap 8.8 mEq/L (5-15); Calcium 8.1 mg/dl (8.4-10.2); Carbon Dioxide 35 mmol/L (22.0-30.0); Globulin 3.4 g/dL (1.3-3.2); Glucose 125 mg/dl (74-100); Total Protein,Serum 6.8 g/dl (6.3-8.2)
[2022-03-17 01:23] LABS: NT Pro Brain Natriuretic Pep. 66.1 pg/mL (0-125)
--- NOTE | 2022-03-17 01:24 | HMH.EDGENADL ---
Discharge Plan Disposition Patient Disposition: Home, Self-Care Condition: Good Chief Complaint: Extremity Problem,Nontraumatic Prescriptions Prescriptions: No Action nystatin 100,000 unit/gram powder 1 applic topical TID Qty: 60 0RF clonazepam [Klonopin] 0.5 mg tablet 0.5 mg PO BID Qty: 60 1RF gabapentin 800 mg tablet 800 mg PO QID Qty: 120 1RF oxycodone-acetaminophen [Percocet] 10-325 mg tablet 1 tab PO QIDP PRN (Reason: Moderate Pain (Scale Score 5-6)) Qty: 120 0RF albuterol sulfate 90 mcg/actuation HFA aerosol inhaler 1 inh IH Q6HP PRN (Reason: Shortness Of Breath) Qty: 1 5RF aspirin [Adult Aspirin Regimen] 81 mg tablet,delayed release (DR/EC) 81 mg PO DAILY meclizine 25 mg tablet 25 mg PO TIDP PRN (Reason: Dizziness) esomeprazole magnesium 20 mg capsule,delayed release(DR/EC) 20 mg PO DAILY levothyroxine 25 mcg tablet 25 mcg PO DAILY rosuvastatin [Crestor] 40 mg tablet 40 mg PO DAILY Xarelto 2.5 mg tablet 2.5 mg PO BID ipratropium-albuterol 0.5 mg-3 mg(2.5 mg base)/3 mL solution for nebulization 3 ml inhalation QID PRN (Reason: wheezing) Qty: 180 0RF metoprolol tartrate 25 mg Tablet 25 mg PO BID 30 Days Qty: 60 0RF nicotine 21 mg/24 hr patch 24 hour 1 patch transdermal DAILY 28 Days Qty: 28 0RF Referrals Follow up/Referrals: Boris Joshi MD [Primary Care Provider] - See instructions Activity Restrictions/Add. Instructions Additional Instructions/Restrictions: Obtain compression stockings later today. Follow-up PCP on Saturday. Return to ER for chest pain, fever Clinical Impressions Clinical Impression: Venous stasis Discharge ED Provider: Lorenzo Perry General Adult [facility] General Chief complaint: Extremity Problem,Nontraumatic Stated complaint: Feet and legs swollen Time Seen by Provider: 03/17/22 00:32 Mode of Arrival: Ambulatory Source of Information: Patient Limitations: No Limitations Description of Symptoms (Recalled from ER Triage Doc. by RN): pt states that she has had bilateral lower extremity swelling for the prior 3 days. States that the swelling got worse today. Bilateral lower extremity redness noted. +2 edema bilaterally. History of Present Illness HPI narrative: 61yo F evaluated in the emergency department secondary to bilateral lower extremity swelling and erythema for 3 days. Patient reports her condition is slowly worsened. She has not been seen by her PCP clinic for this concern. Recently admitted to the hospital and treated for pneumonia. Patient believes she had a blood clot in her lung at that time as well. She denies cough, fever, shortness of breath. Related Data Home Medications Medication Instructions Recorded Confirmed aspirin 81 mg tablet,delayed 81 mg PO DAILY HEART HEALTH 02/26/22 03/09/22 release (Adult Aspirin Regimen) esomeprazole magnesium 20 mg 20 mg PO DAILY GERD 02/26/22 03/09/22 capsule,delayed release levothyroxine 25 mcg tablet 25 mcg PO DAILY THYROID 02/26/22 03/09/22 meclizine 25 mg tablet 25 mg PO TIDP PRN Dizziness 02/26/22 03/09/22 rivaroxaban 2.5 mg tablet (Xarelto) 2.5 mg PO BID PAD 02/26/22 03/09/22 rosuvastatin 40 mg tablet (Crestor) 40 mg PO DAILY Cholesterol 02/26/22 03/09/22 Previous Rx's Medication Instructions Recorded albuterol sulfate 90 mcg/actuation 1 inh inhalation Q6HP PRN 01/24/22 aerosol inhaler Shortness Of Breath #1 g ipratropium 0.5 mg-albuterol 3 mg 3 ml inhalation QID PRN wheezing 03/02/22 (2.5 mg base)/3 mL nebulization #180 mL soln metoprolol tartrate 25 mg tablet 25 mg PO BID 30 days #60 tabs 03/02/22 nicotine 21 mg/24 hr daily 1 patch transdermal DAILY 28 days 03/02/22 transdermal patch #28 ea clonazepam 0.5 mg tablet (Klonopin) 0.5 mg PO BID Anxiety #60 tabs 03/09/22 gabapentin 800 mg tablet 800 mg PO QID Pain #120 tabs 03/09/22 nystatin 100,000 unit/gram topical 1 applic topical TID rash under 03/09/22 powder breast #60 grams
[2022-03-17 01:31] LABS: Procalcitonin 0.095 ng/mL (0.0-2.0)
[2022-03-17 01:53] VITALS: BP 102/63; PULSE 85; RESP 20; TEMP 37.2; O2SAT 98
== END 2022-03-17 02:00 | disposition home or self-care (01) ==
PROVIDERS: Emergency Provider Family Medicine; PCP Emergency Medicine
DX: I87.2 Venous insufficiency (chronic) (peripheral) (principal); F41.9 Anxiety disorder, unspecified; J44.9 Chronic obstructive pulmonary disease, unspecified; I73.9 Peripheral vascular disease, unspecified; E03.9 Hypothyroidism, unspecified; F17.210 Nicotine dependence, cigarettes, uncomplicated
CPT/HCPCS: 80053; 83880; 84145; 85025; 93005; 99285

== ENCOUNTER → 2022-08-24 10:40 | Outpatient (CLI) | payer MEDICARE, SELFPAY ==
[2022-08-24 20:16] LABS: Amphetamine/Metha Screen,Urine Negative ng/ml (<1000)
[2022-08-24 20:17] LABS: Cannabinoid Screen,Urine Negative ng/ml (<50)
[2022-08-24 20:18] LABS: Cocaine Screen,Urine Negative ng/ml (<300)
[2022-08-24 20:19] LABS: Phencyclidine Screen,Urine Negative ng/ml (<25)
[2022-08-24 21:04] LABS: Barbiturates Screen,Urine Negative ng/ml (<200)
[2022-08-24 21:05] LABS: Benzodiazepines Screen,Urine Negative ng/ml (<200)
[2022-08-24 21:06] LABS: Methadone Screen,Urine Negative ng/ml (<300); Opiate Screen,Urine Positive ng/ml (<300)
== END ==
PROVIDERS: PCP Emergency Medicine; Visit Provider Emergency Medicine
DX: M51.16 Intervertebral disc disorders with radiculopathy, lumbar region (principal)
CPT/HCPCS: 80305

== ENCOUNTER 2022-10-24 12:34 | Outpatient (CLI) | payer MEDICARE, SELFPAY ==
[2022-10-24 12:49] VITALS: BMI 27.1
[2022-10-24 13:00] VITALS: BP 155/81; PULSE 108; RESP 18; TEMP 36.6; O2SAT 96
[2022-10-24 13:13] LABS: Chloride 99 mmol/L (98-107); Potassium 4.7 mmoL/L (3.5-5.1); Sodium 139 mmol/L (136-145)
[2022-10-24 13:16] LABS: Anion Gap 15.7 mEq/L (5-15); Blood Urea Nitrogen 4 mg/dl (7-17); Calcium 9.1 mg/dl (8.4-10.2); Carbon Dioxide 29 mmol/L (22.0-30.0); Creatinine Clearance Estimated 85 mL/min (50-200); Estimated Glomerular Filt Rate 73 ml/min (>60); GFR (African American) 89 ML/MIN (>60); Glucose 152 mg/dl (74-100)
[2022-10-24 13:35] VITALS: BP 124/71; PULSE 95; RESP 18; O2SAT 97
--- NOTE | 2022-10-24 14:38 | PC.NURSE ---
10/24/22 1315 Pt reports ongoing rash noted underneath lenny breasts and reports symptoms of a vaginal yeast infection starting. Pt states that she has seen PCP Dr. Joshi in the office a few days ago regarding these complaints. Pt assesssment performed with pt permission and red raised rash area noted to underneath of lenny breasts. Pt states that Dr. Joshi has ordered her Nystatin powder to apply to the area and that because her copay was 30 dollars-she could not afford to get the prescription filled. Pt reports having used the Nystatin powder before and states there has been very little improvement. Instructed pt that otc med is available for vaginal yeast infection if she could afford it. Contacted Kori Wu in regard to this and asked provider if she would recommend anything else for pt to treat this. Provider responded back and stated that she would call in something for pt to her pharmacy. Instructed pt of this and to keep the skin area clean and dry.
== END 2022-10-24 13:40 | disposition home or self-care (01) ==
LOC: INF 12:35
PROVIDERS: PCP Emergency Medicine; Visit Provider Physician Assistant
DX: Z16.12 Extended spectrum beta lactamase (ESBL) resistance (principal); N39.0 Urinary tract infection, site not specified
CPT/HCPCS: 80048; 96365; J1335

== ENCOUNTER 2022-10-25 13:52 | Outpatient (CLI) | payer MEDICARE, SELFPAY ==
[2022-10-25 14:15] VITALS: BP 138/87; PULSE 80; O2SAT 99
[2022-10-25 14:45] VITALS: BP 133/76; PULSE 86; RESP 18; O2SAT 99
== END 2022-10-25 15:06 | disposition home or self-care (01) ==
LOC: INF 13:52
PROVIDERS: PCP Physician Assistant; Visit Provider Physician Assistant
DX: N39.0 Urinary tract infection, site not specified (principal); Z16.12 Extended spectrum beta lactamase (ESBL) resistance
CPT/HCPCS: 96365; 96375; J1335; J2405

== ENCOUNTER 2022-10-26 14:48 | Outpatient (CLI) | payer MEDICARE, SELFPAY ==
[2022-10-26 15:10] VITALS: BP 120/77; PULSE 97; RESP 17; O2SAT 95
[2022-10-26 15:40] VITALS: BP 107/60; PULSE 84; RESP 16
== END 2022-10-26 16:00 | disposition home or self-care (01) ==
LOC: INF 14:49
PROVIDERS: PCP Emergency Medicine; Visit Provider Physician Assistant
DX: N39.0 Urinary tract infection, site not specified (principal); Z16.12 Extended spectrum beta lactamase (ESBL) resistance
CPT/HCPCS: 96365; J1335

== ENCOUNTER → 2022-10-27 15:48 | Outpatient (CLI) | payer MEDICARE, SELFPAY | LOC: INF 15:49 | PROVIDERS: PCP Emergency Medicine; Visit Provider Physician Assistant | DX: Z16.12 Extended spectrum beta lactamase (ESBL) resistance (principal); N39.0 Urinary tract infection, site not specified | CPT/HCPCS: 96365; J1335 ==

== ENCOUNTER → 2022-10-28 15:37 | Outpatient (CLI) | payer MEDICARE, SELFPAY | PROVIDERS: PCP Emergency Medicine; Visit Provider Physician Assistant | DX: N39.0 Urinary tract infection, site not specified (principal); Z16.12 Extended spectrum beta lactamase (ESBL) resistance | CPT/HCPCS: 96365; J1335 ==

== ENCOUNTER 2022-10-29 16:26 | Outpatient (CLI) | payer MEDICARE, SELFPAY ==
[2022-10-29 16:31] VITALS: BP 123/75; PULSE 97; RESP 16; TEMP 37.4; O2SAT 92; BMI 26.2
[2022-10-29 17:35] VITALS: BP 104/65; PULSE 89; RESP 16; TEMP 37.3; O2SAT 92
--- NOTE | 2022-10-29 17:45 | PC.NURSE ---
IV was placed in left AC 20g
== END 2022-10-29 17:35 | disposition home or self-care (01) ==
LOC: INF 16:28
PROVIDERS: PCP Emergency Medicine; Visit Provider Physician Assistant
DX: N39.0 Urinary tract infection, site not specified (principal); Z16.12 Extended spectrum beta lactamase (ESBL) resistance
CPT/HCPCS: 96365; G0463; J1335

== ENCOUNTER 2022-10-30 12:18 | Outpatient (CLI) | payer MEDICARE, SELFPAY ==
[2022-10-30 12:30] VITALS: BP 149/89; PULSE 78; RESP 20; TEMP 36.9; O2SAT 97
[2022-10-30 13:17] VITALS: BP 142/74; PULSE 68; RESP 20; O2SAT 95
== END 2022-10-30 13:30 | disposition home or self-care (01) ==
LOC: INF 12:19
PROVIDERS: PCP Emergency Medicine; Visit Provider Physician Assistant
DX: N39.0 Urinary tract infection, site not specified (principal); Z16.12 Extended spectrum beta lactamase (ESBL) resistance
CPT/HCPCS: 96365; J1335

== ENCOUNTER → 2022-11-07 10:01 | Outpatient (CLI) | payer MEDICARE, SELFPAY ==
[2022-10-19 13:36] LABS: Benzodiazepines Screen,Urine Negative ng/ml (<200)
[2022-10-19 13:37] LABS: Amphetamine/Metha Screen,Urine Negative ng/ml (<1000)
[2022-10-19 13:38] LABS: Barbiturates Screen,Urine Negative ng/ml (<200)
[2022-10-19 13:43] LABS: Methadone Screen,Urine Negative ng/ml (<300); Phencyclidine Screen,Urine Negative ng/ml (<25)
[2022-10-19 13:44] LABS: Opiate Screen,Urine Positive ng/ml (<300)
[2022-10-19 13:45] LABS: Cocaine Screen,Urine Negative ng/ml (<300)
[2022-10-19 13:46] LABS: Cannabinoid Screen,Urine Negative ng/ml (<50)
== END ==
PROVIDERS: PCP Emergency Medicine; Visit Provider Emergency Medicine
DX: N39.0 Urinary tract infection, site not specified (principal); R39.15 Urgency of urination; M51.16 Intervertebral disc disorders with radiculopathy, lumbar region; B96.29 Other Escherichia coli [E. coli] as the cause of diseases classified elsewhere; Z79.899 Other long term (current) drug therapy
CPT/HCPCS: 80305; 87086; 87088; 87186

== ENCOUNTER → 2022-12-03 12:00 | Outpatient (CLI) | payer MEDICARE, SELFPAY ==
[2022-12-03 20:08] LABS: Amphetamine/Metha Screen,Urine Negative ng/ml (<1000); Barbiturates Screen,Urine Negative ng/ml (<200)
[2022-12-03 20:09] LABS: Cannabinoid Screen,Urine Negative ng/ml (<50)
[2022-12-03 20:10] LABS: Benzodiazepines Screen,Urine Negative ng/ml (<200); Methadone Screen,Urine Negative ng/ml (<300)
[2022-12-03 20:11] LABS: Cocaine Screen,Urine Negative ng/ml (<300)
[2022-12-03 20:12] LABS: Opiate Screen,Urine Positive ng/ml (<300); Phencyclidine Screen,Urine Negative ng/ml (<25)
== END ==
PROVIDERS: PCP Emergency Medicine; Visit Provider Emergency Medicine
DX: M51.16 Intervertebral disc disorders with radiculopathy, lumbar region (principal)
CPT/HCPCS: 80305

== ENCOUNTER → 2023-01-02 17:33 | Outpatient (CLI) | payer MEDICARE, SELFPAY ==
--- NOTE | 2023-01-02 17:34 | MR_ITS ---
FINAL REPORT CLINICAL HISTORY: knee pain FINDINGS: Multi planar MR imaging was performed of the left knee. The anterior and posterior cruciate ligaments are intact. The quadriceps and patellar tendons are intact. There is a large tear in the posterior horn of the medial meniscus. The lateral meniscus is intact. The medial and lateral collateral ligaments appear intact. The medial and lateral retinacula appear intact. There is no evidence of bone marrow edema or osteochondral defect. Small joint effusions are identified. There is a small popliteal cyst measuring 3 cm in craniocaudal dimension. There may be a small intra-articular loose body in the posterior joint space measuring 6 mm. Finding is best seen on image 12 of series 5. IMPRESSION: Full-thickness tear posterior horn medial meniscus. Possible small intra-articular body in the posterior joint space. Reviewed, Interpreted and Dictated by Delvis Ruiz MD Transcribed by Cinthya Willson Authenticated and [facility]
== END ==
LOC: RAD 17:33
PROVIDERS: PCP Emergency Medicine; Visit Provider Emergency Medicine
DX: M25.562 Pain in left knee (principal)
CPT/HCPCS: 73721

== ENCOUNTER 2023-02-27 16:51 | Inpatient (IN) | payer MEDICARE, SELFPAY ==
[2023-02-27] VITALS (15 sets, daily range): BP systolic 151–193; BP diastolic 86–116; PULSE 98–111; RESP 16–20; TEMP 36.3–37.3; O2SAT 86–95; BMI 25.7
--- NOTE | 2023-02-27 17:34 | XR_ITS ---
PROCEDURE INFORMATION: Exam: XR Chest Exam date and time: 02/27/2023 6:15 PM Age: 62 years old Clinical indication: Shortness of breath; Additional info: SOA, TECHNIQUE: Imaging protocol: Radiologic exam of the chest. Views: 2 views. COMPARISON: CT ANGIO CHEST PE PROTOCOL 02/26/2022 3:18 AM FINDINGS: Lungs: Calcified granuloma at the left lung base. There is mild coarsening of the bronchovascular markings with hyperinflation suggesting underlying obstructive airways disease. There is improved aeration of the lungs. Pleural spaces: No large effusion or pneumothorax. Heart/Mediastinum: No evidence of mediastinal widening or cardiac silhouette enlargement; the mediastinum and heart appear within normal limits for contour and size. Stable cardiac and mediastinal contours. Vasculature: There are calcifications of the aortic arch. Bones/joints: No evidence of acute osseous abnormalities within the visualized portions of the thoracic spine and ribs. Osseous structures appear appropriate for patient age. IMPRESSION: Improving aeration of the lungs. No dense parenchymal consolidation, pleural effusion, or pneumothorax.
--- NOTE | 2023-02-27 17:34 | CT_ITS ---
PROCEDURE INFORMATION: Exam: CT Neck With Contrast Exam date and time: 02/27/2023 6:28 PM Age: 62 years old Clinical indication: Throat pain TECHNIQUE: Imaging protocol: Computed tomography of the neck with contrast. Radiation optimization: All CT scans at this facility use at least one of these dose optimization techniques: automated exposure control; mA and/or kV adjustment per patient size (includes targeted exams where dose is matched to clinical indication); or iterative reconstruction. Contrast material: ISOVUE; Contrast volume: 75 ml; Contrast route: IV; COMPARISON: 1. CT ANGIO CHEST PE PROTOCOL 02/26/2022 3:18 AM 2. CR Chest 02/27/2023 6:15 PM 3. CR XR CHEST PORTABLE 02/26/2022 1:54 AM FINDINGS: Pharynx: Unremarkable. No significant tonsillar enlargement. Larynx: Unremarkable. Epiglottis is normal. Prevertebral and retropharyngeal spaces: Unremarkable. Salivary glands: Normal. Glands are normal in size. Thyroid: Normal. No enlarged or calcified nodules. Lymph nodes: Mildly prominent lymph nodes are noted, nonenlarged by size criteria and nonspecific. Trachea: Visualized trachea is unremarkable. Lungs: Unremarkable as visualized. Esophagus: There is a mildly dilated and fluid-filled esophagus that is partially imaged. Bones/joints: Unremarkable. No acute fracture. Vasculature: There are atherosclerotic calcifications of the carotid bulbs bilaterally. Soft tissues: Unremarkable. No significant soft tissue swelling. IMPRESSION: 1. Partially imaged dilated and fluid-filled esophagus. 2. No CT evidence for significant pathology of the parapharyngeal soft tissues.
[2023-02-27 17:56] LABS: Basophils # 0.1 K/mm3 (0-0.2); Basophils % 0.8 % (0.1-2.0); Eosinophils % 0.3 % (0.1-12.0); Hemoglobin 15.3 g/dL (12.2-16.2); Lymphocytes # 1.4 K/mm3 (0.7-4.5); Lymphocytes % 17.4 % (10-50); Mean Corpuscular HGB Conc 33.2 g/dL (31.8-35.4); Mean Corpuscular Hemoglobin 31.6 pg (27.0-31.2); Mean Corpuscular Volume 95.1 fl (81-99); Mean Platelet Volume 7.5 fl (7.4-10.4); Monocytes # 0.3 K/mm3 (0.1-1.0); Neutrophils % 77.5 % (37.0-80.0); Platelet Count 235 K/mm3 (142-424); Red Blood Count 4.84 M/mm3 (4.20-5.40); Red Cell Distribution Width 13.7 % (11.5-17.5); White Blood Count 7.8 K/mm3 (4.8-10.8)
[2023-02-27 18:10] LABS: Alanine Aminotransferase 19 U/L (12-78); Albumin Level 4.7 g/dl (3.5-5.0); Albumin/Globulin Ratio 1.2 (1.1-1.8); Alkaline Phosphatase 76 U/L (38-126); Aspartate Amino Transferase 34 U/L (14-36); Bilirubin,Total 0.8 mg/dl (0.2-1.3); Blood Urea Nitrogen 9 mg/dl (7-17); Calcium 9.6 mg/dl (8.4-10.2); Carbon Dioxide 37 mmol/L (22.0-30.0); Chloride 94 mmol/L (98-107); Creatinine Clearance Estimated 107 mL/min (50-200); Estimated Glomerular Filt Rate 102 ml/min (>60); GFR (African American) 123 ML/MIN (>60); Globulin 3.9 g/dL (1.3-3.2); Glucose 125 mg/dl (74-100); Lipase 117 U/L (23-300); Total Protein,Serum 8.6 g/dl (6.3-8.2)
[2023-02-27 18:16] LABS: Anion Gap 8.2 mEq/L (5-15); Potassium 4.2 mmoL/L (3.5-5.1); Sodium 135 mmol/L (136-145)
--- NOTE | 2023-02-27 18:24 | PC.NURSE ---
PT TO CT
--- NOTE | 2023-02-27 18:30 | PC.NURSE ---
pt gone to ct
[2023-02-27] MEDS: ONDANSETRON 4MG/2ML VIAL 4 MG IV (18:39)
[2023-02-27] MEDS: LACTATED RINGERS 1000ML 500 ML 999 ML IV (18:40)
--- NOTE | 2023-02-27 18:46 | CT_ITS ---
PROCEDURE INFORMATION: Exam: CT Chest Without Contrast; Diagnostic Exam date and time: 02/27/2023 7:12 PM Age: 62 years old Clinical indication: Screening exam; Other screening; Additional info: Possible food bolus TECHNIQUE: Imaging protocol: Diagnostic computed tomography of the chest without contrast. Radiation optimization: All CT scans at this facility use at least one of these dose optimization techniques: automated exposure control; mA and/or kV adjustment per patient size (includes targeted exams where dose is matched to clinical indication); or iterative reconstruction. COMPARISON: CT ANGIO CHEST PE PROTOCOL 02/26/2022 3:18 AM FINDINGS: Thyroid: The thyroid gland is moderately atrophic. Correlate clinically for evidence of hypothyroidism. Lungs: Granulomatous calcifications in the mediastinum, left perihilar region, and left lung. No acute tracheobronchial abnormalities. No evidence of aspiration. No pulmonary infiltrates or edema pattern. Mild pleuroparenchymal scarring in the pulmonary apices bilaterally. No pulmonary mass lesions are identified. Pleural spaces: No pleural effusions. No pneumothorax. Heart: Heart size normal. Coronary arteries: Severe coronary artery calcification. Mediastinal space: Fluid distended esophagus consistent with distal obstruction, with fluid level in the proximal esophagus and a 2.7 x 1.6 x 1.4 cm obstructive food bolus at the GE junction. No evidence of perforation. Lymph nodes: No supraclavicular or axillary adenopathy. No mediastinal or hilar adenopathy. Vasculature: The aorta demonstrates mild ectasia/tortuosity and moderate calcific atherosclerosis. No mediastinal hematoma. The pulmonary arteries demonstrate no gross abnormality. Severe calcific atherosclerosis involving the bilateral proximal subclavian arteries with concern for potentially hemodynamically significant stenosis in both. Consider nonemergent Doppler evaluation or CT angiography. Pancreas: Mild pancreatic atrophy without acute abnormality. No pancreatic ductal dilatation. Spleen: Granulomatous calcifications in the spleen without acute splenic abnormality. Bones/joints: No acute osseous abnormalities are identified. Soft tissues: Soft tissues of the thoracic wall demonstrate no acute abnormality. IMPRESSION: 1. There is an obstructive food bolus at the GE junction with fluid distended esophagus. No perforation. 2. Severe calcific atherosclerosis in the bilateral proximal subclavian arteries with concern for potential hemodynamically significant stenoses. Consider nonemergent Doppler or CT angiography as clinically indicated. 3. The thyroid gland is moderately atrophic. Correlate clinically for evidence of hypothyroidism. 4. Severe coronary artery calcification. 5. Additional nonemergent findings detailed above.
[2023-02-27] MEDS: BELLADONNA ALKALOIDS 60 ML ML PO (18:57)
[2023-02-27] MEDS: GLUCAGON 1 MG/ML VIAL IV (18:57)
--- NOTE | 2023-02-27 19:19 | ED_ITS ---
Discharge Plan Disposition Patient Disposition: Still a Patient Condition: Serious Chief Complaint: Nausea/Vomiting/Diarrhea Prescriptions Prescriptions: No Action ondansetron HCl 4 mg tablet 4 mg PO TID PRN (Reason: nausea and vomiting) Qty: 30 0RF prednisone 10 mg tablet 10 mg PO DAILY Qty: 5 0RF ketorolac 10 mg tablet 10 mg PO TID 5 Days Qty: 15 0RF Rx Instructions: had toradol shot today in the office albuterol sulfate 90 mcg/actuation HFA aerosol inhaler 1 inh IH Q6HP PRN (Reason: Shortness Of Breath) Qty: 1 5RF fluconazole [Diflucan] 150 mg tablet 150 mg PO DAILY 5 Days Qty: 5 2RF butenafine 1 % cream 1 applic topical BID Qty: 90 0RF meclizine 25 mg tablet See Rx Instructions .ROUTE .COMPLEX Qty: 30 0RF Dose Instruction: TAKE ONE TABLET BY MOUTH 3 TIMES A DAY NEEDED FOR DIZZINESS Rx Instructions: TAKE ONE TABLET BY MOUTH 3 TIMES A DAY NEEDED FOR DIZZINESS Clenpiq 10 mg-3.5 gram- 12 gram/160 mL solution 160 ml PO DAILY Qty: 350 0RF Rx Instructions: take first dose at 5-9PM evening before colonoscopy; 2nd dose the next day approximately 5 hrs before colonoscopy aspirin 81 mg tablet,delayed release (DR/EC) 81 mg PO DAILY Qty: 90 0RF esomeprazole magnesium 20 mg capsule,delayed release(DR/EC) See Rx Instructions .ROUTE .COMPLEX Qty: 30 0RF Dose Instruction: TAKE ONE CAPSULE BY MOUTH ONCE A DAY Rx Instructions: TAKE ONE CAPSULE BY MOUTH ONCE A DAY ipratropium-albuterol 0.5 mg-3 mg(2.5 mg base)/3 mL solution for nebulization 3 ml inhalation QID PRN (Reason: wheezing) Qty: 180 0RF clonazepam [Klonopin] 0.5 mg tablet 0.5 mg PO BID Qty: 60 1RF gabapentin 800 mg tablet 800 mg PO QID Qty: 120 1RF oxycodone-acetaminophen [Percocet] 10-325 mg tablet 1 tab PO QIDP PRN (Reason: Moderate Pain (Scale Score 5-6)) Qty: 120 0RF furosemide 40 mg tablet 40 mg PO BID terbinafine HCl 250 mg tablet See Rx Instructions .ROUTE .COMPLEX Rx Instructions: TAKE ONE TABLET BY MOUTH ONCE A DAY mupirocin 2 % ointment See Rx Instructions .ROUTE .COMPLEX Rx Instructions: APPLY TOPICALLY TO AFFECTED AREA(S) 2 TIMES A DAY nystatin 100,000 unit/gram powder See Rx Instructions .ROUTE .COMPLEX Rx Instructions: APPLY TOPICALLY UNDER THE BREAST 3 TIMES A DAY FOR RASH spironolactone 50 mg tablet 50 mg PO BID levothyroxine 25 mcg tablet 25 mcg PO DAILY rosuvastatin [Crestor] 40 mg tablet 40 mg PO DAILY Xarelto 2.5 mg tablet 2.5 mg PO BID Referrals Follow up/Referrals: Jeronimo Gomez DO [Primary Care Provider] - See instructions Clinical Impressions Clinical Impression: Esophageal obstruction due to food impaction Instructions Patient Instructions: Steakhouse Syndrome Discharge ED Provider: Shannon Mackay General Adult HPI General Chief complaint: Nausea/Vomiting/Diarrhea Stated complaint: food stuck in throat Time Seen by Provider: 02/27/23 17:06 Mode of Arrival: Ambulatory Source of Information: Patient Limitations: No Limitations Description of Symptoms (Recalled from ER Triage Doc. by RN): pt states she got choked on a piece of ham and biscuit last night at midnight. pt has not been able to keep anything down including her medicine for leg pain which is oxycodone and gabapentin. pt has only tried to drink mtn dew in order to get food down History of Present Illness HPI narrative: Gina Eckert is a 62-year-old female with previous medical history of peripheral arterial disease, COPD, hypertension, prior food bolus impaction that resolved without endoscopy, now presenting with concern for food bolus impaction. Patient states that last night she swallowed a piece of meat and has had throat pain and vomiting since then. She does not have significant nausea but is unable to keep down any food or fluids despite attempting sips of Mountain Dew. Patient had a food bolus impaction a few years ago that did not require endoscopy that she knows of. No chest pain or abdominal pain. Related Data Home Medications Medication Instructions Recorded Confirmed levothyroxine 25 mcg tablet 25 mcg PO DAILY THYROID 02/26/22 12/03/22 rivaroxaban 2.5 mg tablet (Xarelto) 2.5 mg PO BID PAD 02/26/22 12/03/22 rosuvastatin 40 mg tablet (Crestor) 40 mg PO DAILY Cholesterol 02/26/22 12/03/22 furosemide 40 mg tablet 40 mg PO BID Fluid 10/24/22 12/03/22 mupirocin 2 % topical ointment See Rx Instructions .Route 10/24/22 12/03/22 .COMPLEX skin rash nystatin 100,000 unit/gram topical See Rx Instructions .Route 10/24/22 12/03/22 powder .COMPLEX yeast skin infection spironolactone 50 mg tablet 50 mg PO BID Fluid 10/24/22 12/03/22 terbinafine HCl 250 mg tablet See Rx Instructions .Route 10/24/22 12/03/22 .COMPLEX nail fungal infection Previous Rx's Medication Instructions Recorded albuterol sulfate 90 mcg/actuation 1 inh inhalation Q6HP PRN 01/24/22 aerosol inhaler Shortness Of Breath #1 g ondansetron HCl 4 mg tablet 4 mg PO TID PRN nausea and 10/19/22 vomiting #30 tabs fluconazole 150 mg tablet 150 mg PO DAILY yeast 5 days #5 10/24/22 (Diflucan) tabs butenafine 1 % topical cream 1 applic topical BID #90 grams 10/30/22 ketorolac 10 mg tablet 10 mg PO TID 5 days #15 tabs 12/03/22 prednisone 10 mg tablet 10 mg PO DAILY #5 tabs 12/03/22 meclizine 25 mg tablet See Rx Instructions .Route 12/13/22 .COMPLEX #30 tabs sod picosulf 10 mg-magnes 3.5 160 ml PO DAILY 2 doses #350 mL 01/14/23 gram-citric 12 gram/160 mL oral solution (Clenpiq) aspirin 81 mg tablet,delayed 81 mg PO DAILY Blood Thinner #90 02/08/23 release tabs clonazepam 0.5 mg tablet (Klonopin) 0.5 mg PO BID Anxiety #60 tabs 02/08/23 esomeprazole magnesium 20 mg See Rx Instructions .Route 02/08/23 capsule,delayed release .COMPLEX #30 caps gabapentin 800 mg tablet 800 mg PO QID Pain #120 tabs 02/08/23 ipratropium 0.5 mg-albuterol 3 mg 3 ml inhalation QID PRN wheezing 02/08/23 (2.5 mg base)/3 mL nebulization #180 mL soln oxycodone-acetaminophen 10 mg-325 1 tab PO QIDP PRN Moderate Pain 02/08/23 mg tablet (Percocet) (Scale Score 5-6) #120 tabs Allergies Allergy/AdvReac Type Severity Reaction Status Date / Time lansoprazole [From PREVACID] Allergy Intermediate Palpitation Verified 12/03/22 14:53 s omeprazole [From PRILOSEC] Allergy Intermediate Palpitation Verified 12/03/22 14:53 s [id number] Reductase AdvReac Intermediate Muscle Pain Verified 12/03/22 14:53 Inhibitor atorvastatin AdvReac Cramping Verified 12/03/22 14:53 of the Muscles [facility] Disclaimer: The information contained in this section may have been updated after the freddie ent was seen, as this information can be updated by other users. Medical History Anxiety disorder COPD (chronic obstructive pulmonary disease) Femoral artery occlusion Femoral artery occlusion Hypothyroidism PAD (peripheral artery disease) Tobacco abuse Family History Other Family history of cancer Family history of hypertension Social History Smoking Status: Former smoker tobacco type: cigarettes packs per day: 1 alcohol intake: never substance use type: denies use current occupational status: unemployed and disabled Travel in the last 8 weeks: Inside the [place] household members: children housing: house current occupational exposures/hazards: No caffeine: Yes ROS Obtained: Yes All systems reviewed & no additional complaints except as documented Physical Exam General General appearance: alert and in no apparent distress Head Head exam: atraumatic, normocephalic and normal inspection Eye Eye exam: Present normal appearance, PERRL and EOMI ENT ENT exam: Present normal exam, normal oropharynx, mucous membranes moist, TM's normal bilaterally and normal external ear exam Neck Neck exam: Present normal inspection, full ROM, trachea midline and tenderness (Tenderness and mild swelling of the submandibular glands bilaterally.); Absent meningismus or lymphadenopathy Chest Chest inspection: Present normal inspection and symmetric chest wall rise; Absent tenderness Respiratory Respiratory exam: Present normal lung sounds bilaterally; Absent respiratory distress Cardiovascular Cardiovascular exam: Present regular rate and normal rhythm; Absent JVD Abdominal Exam Abdominal exam: Present soft and normal bowel sounds; Absent distention, tenderness or guarding Extremities Exam Extremities exam: Present normal inspection, full ROM and normal capillary refill; Absent calf tenderness Back Exam Back exam: Present normal inspection; Absent tenderness Neurological Exam Neurological exam: Present alert and oriented X3 Psychiatric Psychiatric exam: Present normal affect and normal mood Skin Skin exam: Present warm, dry, intact and normal color Lymphatic Lymphatic Findings: no adenopathy Medical Decision Making Guevara Inquiry Pt receiving controlled substance: No Guevara was queried for this patient: No Vital Signs: 02/27/23 16:52 02/27/23 18:47 Temperature 98.1 F Temperature Source Oral Pulse Rate 99 H Pulse Rate [Right Radial] 111 H Respiratory Rate 20 Blood Pressure 188/89 H Blood Pressure [Right Arm] 190/100 H Blood Pressure Mean 146 Blood Pressure Mean [Right Arm] 130 02 Sat by Pulse Oximetry 95 88 L Oxygen Delivery Method Room Air Lab Data Lab Results 02/27/23 17:48: WBC 7.8, RBC 4.84, Hgb 15.3, Hct 46.0, MCV 95.1, MCH 31.6 H, MCHC 33.2, RDW 13.7, Plt Count 235, MPV 7.5, Neut % (Auto) 77.5, Lymph % (Auto) 17.4, [place] % (Auto) 4.0, Eos % (Auto) 0.3, Baso % (Auto) 0.8, Neut # (Auto) 6.0, Lymph # (Auto) 1.4, [place] # (Auto) 0.3, Eos # (Auto) 0.0, Baso # (Auto) 0.1, Sodium 135 L, Potassium 4.2, Chloride 94 L, Carbon Dioxide 37 H, Anion Gap 8.2, BUN 9, Creatinine 0.60, Estimated Creat Clear 107, Estimated GFR 102, Est GFR ( Amer) 123, Glucose 125 H, Calcium 9.6, Total Bilirubin 0.8, AST 34, ALT 19, Alkaline Phosphatase 76, Total Protein 8.6 H D, Albumin 4.7, Globulin 3.9 H, Albumin/Globulin Ratio 1.2, Lipase 117 02/27/23 17:48 02/27/23 17:48 Orders (Tests/Meds): ED MEDICATIONS Discontinued Medications Generic Name Dose Route Start Last Admin Trade Name Freq PRN Reason Stop Dose Admin Belladonna Alkaloids 60 ml 02/27/23 18:50 02/27/23 18:57 Belladonna Alkaloids 60 Ml Ml PO 02/27/23 18:51 60 ml ONCE ONE Administration Droperidol 2.5 mg 02/27/23 20:10 Droperidol 5mg/2ml Vial IV 02/27/23 20:11 ONCE ONE Glucagon 1 mg 02/27/23 18:46 02/27/23 18:57 Glucagon 1 Mg/Ml Vial IV 02/27/23 18:47 1 mg ONCE ONE Administration Lactated Ringer's 500 mls @ 999 mls/hr 02/27/23 18:19 02/27/23 18:40 Lactated Ringer's 1000 Ml Bag IV 02/27/23 18:49 999 mls/hr .Q31M ONE Administration Iopamidol 75 ml 02/27/23 18:39 Iopamidol-370 (76%);100ml Bottle IV 02/27/23 18:40 ONCE ONE Morphine Sulfate 8 mg 02/27/23 20:10 Morphine 8mg/Ml Syringe IV 02/27/23 20:11 ONCE ONE Ondansetron HCl 4 mg 02/27/23 18:19 02/27/23 18:39 Ondansetron 4mg/2ml Vial IV 02/27/23 18:20 4 mg ONCE ONE Administration Sodium Chloride 10 ml 02/27/23 18:39 Sodium Chloride 0.9% 10ml Syr (Rad Only) IV 02/27/23 18:40 ONCE ONE ORDERS Category Date Time Status CT chest wo con Stat Cat Scan 02/27/23 18:[address] soft tissue neck w con Stat Cat Scan 02/27/23 17:34 Completed Chest XR 2 view (NOT portable) [XR chest 2V] Stat Exams 02/27/23 17:34 Completed CBC [Complete Blood Count Auto Diff] Stat Lab 02/27/23 17:48 Completed CMP [Comprehensive Metabolic Panel] Stat Lab 02/27/23 17:48 Completed Lipase Stat Lab 02/27/23 17:48 Completed Medical Decision Narrative: Presentation concerning for food bolus impaction but also considered given her throat pain and anterior throat tenderness that she may have throat or upper esophageal foreign body, malignancy, infection such as abscess, among others. For this reason obtained laboratory evaluation and CT soft tissue neck which showed no abnormalities of the oropharynx but did have a air and fluid-filled esophagus. Obtained CT chest which showed food bolus impaction but no rupture or other complications. Administered glucagon with no improvement, only increased nausea. Gave LR and antiemetics. Labs I independently reviewed and interpreted had no significant abnormalities of CBC or CMP. Consulted general surgery to discuss food bolus impaction and request endoscopy and they agreed to proceed with upper endoscopy and anticipate discharge shortly after procedure. Critical Care Critical Care Time Critical Care Time: No
--- NOTE | 2023-02-27 20:04 | PC.NURSE ---
Dr. Lundy being paged for ED doctor
--- NOTE | 2023-02-27 20:06 | PC.NURSE ---
ER MD on phone with regarding patient food bolus
--- NOTE | 2023-02-27 20:08 | PC.NURSE ---
Notified hotel housekeeper that per General Surgery patient will be taken to OR for endoscopy
--- NOTE | 2023-02-27 20:08 | PC.NURSE ---
surgery team called in.
[2023-02-27] MEDS: SODIUM CHLORIDE 0.9% 25ML BAG 25 ML IV (20:19)
[2023-02-27] MEDS: MORPHINE 8MG/ML SYRINGE 8 MG IV (20:19)
[2023-02-27] MEDS: PROMETHAZINE HCL 25MG/ML 1ML VIAL 12.5 MG IV (20:20)
--- NOTE | 2023-02-27 20:22 | PC.NURSE ---
in room talking with patient at this time.
--- NOTE | 2023-02-27 21:38 | P.PCN_ITS ---
Procedure: Date: 02/27/23 Patient Date of :: 1960 Procedure Performed:: Esophagogastroscopy with foreign body removal Indications:: Esophageal foreign body Performing Provider:: Noel Lundy MD Referring Provider:: . Sedation:: Monitored anesthesia care Procedure:: After informed consent was obtained the patient was taken to the endoscopy suite. Sedation ensued after the patient was transferred to the left lateral decubitus position. Pulse, blood pressure, and oxygen saturation were monitored throughout the procedure. The endoscope with eSuction device was advanced. Mild resistance consistent with possible stricture noted in the proximal esophagus; however, the gastroscope did easily advance beyond this point to the mid/distal esophagus where a foreign body/food bolus was encountered. As the suction device was secured to the proximal margin of the food bolus immediate advancement of the food bolus into the gastric lumen was noted. The endoscope was carefully removed and the eSuction device was disconnected. The gastroscope was then re-advanced into the gastric lumen. A linear rent in the proximal esophagus was visualized (site of mild resistance noted when eSuction device at tached). No definitive through and through perforation was noted. At the site of food bolus impaction in the distal esophagus severe mucosal inflammation (friable mucosa) and multiple small areas of rent/injury were noted. Once again, no definitive through and through perforation was noted. Initial sanguinous ooze from the esophageal mucosal rents was encountered; however, this quickly abated. As additional maneuvering of the gastroscope was deemed unwarranted/unsafe, it was carefully removed and the patient was transferred to recovery in stable condition. Please see findings and specimens below for detail. Findings:: Proximal esophageal linear rent likely secondary to food bolus in combination with eSuction device Severe inflammatory changes and friable mucosa noted throughout mid/distal esophagus with multiple mucosal rents noted at site of distal esophageal impaction Note: The patient presented after approximately 20 hours of symptoms. Specimens:: None for pathology Recommendations:: Clear liquid diet for 24 hours followed by full liquid diet for 48 hours followed by soft diet Continue current proton pump inhibitor as prescribed with the addition of H2 blockade Complications:: No immediate Estimated blood obtained (mL): 1 Colonoscopy Component Colonoscopy Component Was a colonoscopy performed during today's procedure?: No
--- NOTE | 2023-02-27 21:56 | P.PNANES_ITS ---
[facility] Anesthesia Record Part I Anesthesia Record I Intake, IV Amount: 200 Hydration: Adequate Estimated blood loss (mL): 0 Urine output (mL): 0 Blood Products used (#): none Blood Pressure: 151/88 SaO2: 93 Pulse Rate: 106 Airway Patency: Patent Respiratory Rate: 18 Temperature: 97.3 F Patient is:: Awake (Talking) and Nasal O2 Stable to PACU at:: 21:48
--- NOTE | 2023-02-27 22:26 | SUR.PHASEII ---
DARRION Dimas Hospitalist at bedside evaluating patient. Pt will be admitted to 2nd floor for possible aspiration PNA. Pamela RN called at this time. Awaiting bed assignment. Pt drinking water and conversing with staff at this time.
--- NOTE | 2023-02-27 22:46 | PC.NURSE ---
Patient arrived to floor via stretcher from the OR at 22:40.
--- NOTE | 2023-02-27 22:50 | PC.NURSE ---
received phone report from tres rn/pacu at [phone]. patient is a 62 yo female . diagnosis asp pneumonia s/p food impaction. patient arrived to the floor via stretcher accompanied by 3 OR nurses. 02 at [id number].
--- NOTE | 2023-02-27 23:04 | P.HP_ITS ---
History of Present Illness *Admission Date: 02/27/23 *Reason for visit:: Possible Aspiration *History of present illness: This is chronically ill patient with a past medical hx of of COPD, HTN, PAD, anxiety and tobacco dependence who presented to the ED with complaints of difficulty swallowing after eating ham and biscuit yesterday She endorses difficulty swallowing and episodes of pain and vomiting associated with this. She was note to have a forieign body on imaging and was taken to the Endo sweet by surgery for removal. She had successful removal of foreign body but had possible esophageal injury with likely aspiration episode. During recover she was unable to recover her oxygen saturations to baseline. She does endorse chronic home o2 use of 3 Liters. Her normal oxygen saturations at home are in the low 90s. After ample recovery time, she was unable to improve her oxygen sa turations above 88% on 4L/NC. Dr Lundy recommended hospitalization overnight for monitoring, and aspiration precautions/treatment. On my exam, she is awake alert and oriented in no distress. She is oxygenating at 88% on 4L/NC, mild wheezing/diminished lung sounds noted. She only endorses some soreness of her throat but reports feeling improved from a swallowing stand point. No subq air noted at neck. She will be admitted to the hospitalist service for observation. [facility] Disclaimer: The information contained in this section may have been updated after the patient was seen, as this information can be updated by other users. Medical History Anxiety disorder COPD (chronic obstructive pulmonary disease) Femoral artery occlusion Femoral artery occlusion Hypothyroidism PAD (peripheral artery disease) Tobacco abuse Family History Other Family history of cancer Family history of hypertension Social History Smoking Status: Former smoker tobacco type: cigarettes packs per day: 1 alcohol intake: never substance use type: denies use current occupational status: unemployed and disabled Travel in the last 8 weeks: Inside the [place] household members: children housing: house current occupational exposures/hazards: No caffeine: Yes Review of Systems Constitutional Constitutional: Reports as per HPI Eyes Eyes: Reports system reviewed and no additional complaints, except as documented ENT Comments: soreness of her throat, airway open and patent *Cardiovascular Cardiovascular: Reports system reviewed and no additional complaints, except as documented, Denies chest pain and Reports dyspnea *Respiratory Respiratory: Reports as per HPI, Reports cough and Reports dyspnea *Gastrointestinal Gastrointestinal: Reports system reviewed and no additional complaints, except as documented *Genitourinary Genitourinary: Reports system reviewed and no additional complaints, except as documented *Musculoskeletal Musculoskeletal: Reports system reviewed and no additional complaints, except as documented *Neurologic Neurologic: Reports system reviewed and no additional complaints, except as documented Meds Home Medications and Allergies Home Medications Medication Instructions Recorded Confirmed Type albuterol sulfate 90 mcg/actuation 1 inh inhalation Q6HP PRN 01/24/22 02/28/23 Rx aerosol inhaler Shortness Of Breath #1 g aspirin 81 mg tablet,delayed 81 mg PO DAILY Blood Thinner #90 02/08/23 02/28/23 Rx release tabs clonazepam 0.5 mg tablet (Klonopin) 0.5 mg PO BID Anxiety #60 tabs 02/08/23 02/28/23 Rx gabapentin 800 mg tablet 800 mg PO QID Pain #120 tabs 02/08/23 02/28/23 Rx ipratropium 0.5 mg-albuterol 3 mg 3 ml inhalation QID PRN wheezing 02/08/23 02/28/23 Rx (2.5 mg base)/3 mL nebulization #180 mL soln esomeprazole magnesium 20 mg 20 mg PO DAILY 02/28/23 02/28/23 History capsule,delayed release meclizine 25 mg tablet 25 mg PO TID PRN Dizziness Or 02/28/23 02/28/23 History Vertigo ondansetron HCl 4 mg tablet 4 mg PO TID PRN Nausea And Vomiting 02/28/23 02/28/23 History oxycodone-acetaminophen 10 mg-325 1 tab PO QID PRN Pain 02/28/23 02/28/23 History mg tablet New Prescriptions to Start Prescriptions: Allergies Allergy/AdvReac Type Severity Reaction Status Date / Time lansoprazole [From PREVACID] Allergy Intermediate Palpitation Verified 12/03/22 14:53 s omeprazole [From PRILOSEC] Allergy Intermediate Palpitation Verified 12/03/22 14:53 s [id number] Reductase AdvReac Intermediate Muscle Pain Verified 12/03/22 14:53 Inhibitor atorvastatin AdvReac Cramping Verified 12/03/22 14:53 of the Muscles Exam Data for Last 24 hours Vital signs and Labs for Last 24 Hours: Temp Pulse Resp BP Pulse Ox O2 Del Method O2 Flow Rate 97.3 F L 104 H 18 157/86 H 87 L Nasal Cannula 4 02/27/23 21:57 02/27/23 22:27 02/27/23 22:27 02/27/23 22:27 02/27/23 22:27 02/27/23 22:27 02/27/23 22:27 Laboratory Results - last 24 hr 02/27/23 17:48: WBC 7.8, RBC 4.84, Hgb 15.3, Hct 46.0, MCV 95.1, MCH 31.6 H, MCHC 33.2, RDW 13.7, Plt Count 235, MPV 7.5, Neut % (Auto) 77.5, Lymph % (Auto) 17.4, [place] % (Auto) 4.0, Eos % (Auto) 0.3, Baso % (Auto) 0.8, Neut # (Auto) 6.0, Lymph # (Auto) 1.4, [place] # (Auto) 0.3, Eos # (Auto) 0.0, Baso # (Auto) 0.1, Sodium 135 L, Potassium 4.2, Chloride 94 L, Carbon Dioxide 37 H, Anion Gap 8.2, BUN 9, Creatinine 0.60, Estimated Creat Clear 107, Estimated GFR 102, Est GFR ( Amer) 123, Glucose 125 H, Calcium 9.6, Total Bilirubin 0.8, AST 34, ALT 19, Alkaline Phosphatase 76, Total Protein 8.6 H D, Albumin 4.7, Globulin 3.9 H, Albumin/Globulin Ratio 1.2, Lipase 117 I & O for Last 24 hours: Intake & Output 02/24/23 02/25/23 02/26/23 02/27/23 23:59 23:59 23:59 23:59 Intake Total 200 / 200 Balance 200 / 200 Weight 68.039 kg Constitutional Constitutional: mild distress *Routine HEENT Exam Head: Present normocephalic Eye: Present EOMI and PERRL ENT: Present mucous membranes moist *Routine Neck Exam Neck: Present supple, full ROM and tenderness *Routine Respiratory Exam Respiratory: Present wheezes, crackles and distant breath sounds *Routine Cardiovascular Exam Cardiovascular: Present RRR, Normal S1 and Normal S2 *Routine Abdominal Exam Abdominal: Present soft and normoactive bowel sounds *Routine Rectal Exam Rectal:: deferred *Routine Genitalia Exam Genitalia:: deferred *Routine Extremities Exam Extremities: Present full ROM, pulses intact and normal capillary refill *Routine Skin Exam Skin: Present intact and dry *Routine Neurological Exam Neurological: Present alert, oriented X3 and CN II-XII intact Assessment and Plan *Assessment and plan (1) Esophageal obstruction due to food impaction: Status: Acute Category: Medical Code(s): T18.128A - Food in esophagus causing other injury, initial encounter; [id number].F3XA - Food entering into or through a natural orifice, initial encounter (2) Hypertension: Status: Chronic Qualifiers: Hypertension type: essential hypertension Qualified Code(s): I10 - Essential (primary) hypertension Category: Medical Code(s): I10 - Essential (primary) hypertension (3) COPD (chronic obstructive pulmonary disease): Status: Chronic Qualifiers: COPD type: unspecified COPD Qualified Code(s): J44.9 - Chronic obstructive pulmonary disease, unspecified Category: Medical Code(s): J44.9 - Chronic obstructive pulmonary disease, unspecified (4) Hypothyroidism: Status: Chronic Qualifiers: Hypothyroidism type: acquired Qualified Code(s): E03.9 - Hypothyroidism, unspecified Category: Medical Code(s): E03.9 - Hypothyroidism, unspecified (5) Hypoxia: Status: Acute Category: Medical Code(s): R09.02 - Hypoxemia Plan Addendum: 02/28/2023 @ 0300 After the below mentioned assessment patient developed tachycardia in the 140s with a fever Tmax 103.1 with increasing oxygen requirement. Patient now up to 6 L nasal cannula with some delirium likely secondary to acute febrile illness. Blood cultures obtained and antibiotics broadened out to vancomycin, cefepime and Flagyl. Stat lab work obtained. Meets criteria for Severe sepsis with organ dysfunction. Will continue with sepsis protocol. Meets Criteria for fever, tachycardia, Tachycardia, increased o2 requirement and infection source Likely secondary to aspiration pneumonia Received 30ml/kg fluid administration Lactic acid pending Continue broad spectrum abx with Vancomyicn, Cefepime and Flagyl Monitor inflammatory markers This is a 62 year old female with a PMhx of COPD on 3L/NC intermittently at home who presented for food impaction. She undewent successful removal of foreign body but has possible aspiration event. She is admitted for observation. Hypoxia Esophageal obstruction due to food impaction Possible aspiration event per Dr. Lundy during procedure Increased oxygen requirement in PACU despite adequate recover time Will treat empirically for aspiration pneumonitits with Rocephin and Flagyl Currently requiring 4L/NC to maintain O2 sats greater than 88%. Usually only requires 3L/NC intermittently at home. Continue DUonebs, wean o2 as tolerated Per DR. Lundy, difficulty scope, risk for esophageal injury. Pt is stable at this time. No evidence of injury noted. HTN Continue home medications once reconciled Hypotyhroidsim Contine levothyroxine COPD Mild wheezing, continue Duonebs PAD Continue home Eliquis Chronic pain Continue home gapapentin and oxycodone Hypothyroidism Continue Levothyroxine DVT ppx Eliquis Full Code Rounded on patient after nurse practitioner. Personally examined and interviewed patient. Agree with exam findings and care plan as documented. Feeling a little better morning rounds.
--- NOTE | 2023-02-27 23:28 | PC.NURSE ---
PATIENT DOES NOT KNOW HER MEDS. DAUGHTER TO BRING PILL BOTTLES IN TOMORROW.
[2023-02-27] MEDS: IPRATROPIUM/ALBUTEROL 3 ML NEB IH (23:45)
[2023-02-28] VITALS (19 sets, daily range): BP systolic 115–180; BP diastolic 61–116; PULSE 67–143; RESP 16–20; TEMP 36.7–39.5; O2SAT 84–97; BMI 27.0
[2023-02-28] MEDS: METRONIDAZ/SOD CHL 500 MG/100 ML PIGGYBACK 100 MG IV ×3 (00:27→22:04)
[2023-02-28] MEDS: CEFTRIAXONE SODIUM 1 GM in 0.9 % SODIUM CHLORIDE 50 ML IV (00:27)
[2023-02-28] MEDS: ACETAMINOPHEN 500MG TAB 1000 MG PO (02:06)
[2023-02-28] MEDS: OXYCODONE 10MG W/APAP 325MG TABLET 1 EACH PO ×3 (02:09→20:51)
--- NOTE | 2023-02-28 02:28 | PC.NURSE ---
1650 kimmy lakhani NP notified of patient request for pain med for chronic leg pain.
--- NOTE | 2023-02-28 02:30 | PC.NURSE ---
0200 J TORSTEN ADKINS NOTIFIED OF PATIENT BP. HR, TEMP. CHILLS, AND LEG PAIN. SEE MAR FOR ORDERS. LACTIC ACID TO BE DRAWN.
[2023-02-28 02:56] LABS: Basophils % 0.3 % (0.1-2.0); Eosinophils # 0.1 K/mm3 (0.0-0.4); Eosinophils % 0.4 % (0.1-12.0); Hemoglobin 14.6 g/dL (12.2-16.2); Lymphocytes # 0.9 K/mm3 (0.7-4.5); Lymphocytes % 7.7 % (10-50); Mean Corpuscular HGB Conc 33.3 g/dL (31.8-35.4); Mean Corpuscular Hemoglobin 31.2 pg (27.0-31.2); Mean Corpuscular Volume 93.8 fl (81-99); Mean Platelet Volume 7.5 fl (7.4-10.4); Monocytes # 0.4 K/mm3 (0.1-1.0); Monocytes % 3.4 % (1.7-9.3); Neutrophils % 88.2 % (37.0-80.0); Platelet Count 206 K/mm3 (142-424); Red Blood Count 4.69 M/mm3 (4.20-5.40); Red Cell Distribution Width 13.9 % (11.5-17.5); White Blood Count 11.3 K/mm3 (4.8-10.8)
[2023-02-28 03:14] LABS: Lactic Acid 2.1 mmol/L (0.7-2.1)
[2023-02-28 03:16] LABS: MANUAL DIFFERENTIAL MANUAL DIFFERENTIAL (MANUAL DIFF)
[2023-02-28] MEDS: IBUPROFEN 800 MG TABLET PO (03:19)
[2023-02-28] MEDS: SODIUM CHLORIDE 999 ML IV (03:22)
--- NOTE | 2023-02-28 03:31 | PC.NURSE ---
jeanette pal pharmacist consulted re vanc dosing.
[2023-02-28] MEDS: CEFEPIME HCL 1 GM in 0.9 % SODIUM CHLORIDE 50 ML IV ×3 (03:43→22:04)
[2023-02-28] MEDS: VANCOMYCIN CONSULT REQUEST 1 EACH NOTAPPLIC (03:48)
[2023-02-28] MEDS: VANCOMYCIN/WATER FOR INJ (PEG) 1.25 GM/250 ML PIGGYBACK IV (04:00)
--- NOTE | 2023-02-28 05:27 | PC.NURSE ---
0325 TEMP 103.1 ORAL. Elliot SARMIENTO NP NOTIFIED. SEPSIS PROTOCOL.
[2023-02-28] MEDS: 0.9 % SODIUM CHLORIDE 1000ML 1,000 ML 100 ML IV ×2 (05:31→20:52)
[2023-02-28 05:51] LABS: Lymphocytes % 13 % (10-50); Neutrophils % 87 % (42-76); Platelet Estimate Normal; Stomatocytes 2+; Total Cells Counted 100
[2023-02-28] MEDS: LEVOTHYROXINE 25MCG (0.025MG) TAB 25 MCG PO (06:10)
[2023-02-28] MEDS: IPRATROPIUM/ALBUTEROL 3 ML NEB IH ×4 (06:23→23:25)
--- NOTE | 2023-02-28 06:56 | EXP.SEPSISRE ---
[facility] Tissue Perfusion Eval Sepsis Re-Evaluation Performed: Yes Date Performed: 02/28/23 Time Performed: 04:00
[2023-02-28 06:57] LABS: Basophils % 0.3 % (0.1-2.0); Eosinophils # 0.1 K/mm3 (0.0-0.4); Eosinophils % 0.5 % (0.1-12.0); Hematocrit 39.6 % (37.0-47.0); Hemoglobin 13.4 g/dL (12.2-16.2); Lymphocytes % 10.5 % (10-50); Mean Corpuscular HGB Conc 33.8 g/dL (31.8-35.4); Mean Corpuscular Hemoglobin 31.9 pg (27.0-31.2); Mean Corpuscular Volume 94.1 fl (81-99); Mean Platelet Volume 7.8 fl (7.4-10.4); Monocytes # 0.4 K/mm3 (0.1-1.0); Monocytes % 3.9 % (1.7-9.3); Neutrophils # 7.8 K/mm3 (1.8-7.8); Neutrophils % 84.8 % (37.0-80.0); Platelet Count 165 K/mm3 (142-424); Red Blood Count 4.21 M/mm3 (4.20-5.40); Red Cell Distribution Width 13.8 % (11.5-17.5); White Blood Count 9.2 K/mm3 (4.8-10.8)
[2023-02-28 07:00] LABS: Reflex Lactic Add Lactic Reflex
[2023-02-28 07:05] LABS: Anion Gap 6.9 mEq/L (5-15); Blood Urea Nitrogen 11 mg/dl (7-17); Calcium 7.9 mg/dl (8.4-10.2); Carbon Dioxide 28 mmol/L (22.0-30.0); Chloride 103 mmol/L (98-107); Creatinine Clearance Estimated 113 mL/min (50-200); Estimated Glomerular Filt Rate 102 ml/min (>60); GFR (African American) 123 ML/MIN (>60); Glucose 119 mg/dl (74-100); Lactic Acid 1.7 mmol/L (0.7-2.1); Potassium 3.9 mmoL/L (3.5-5.1); Sodium 134 mmol/L (136-145)
--- NOTE | 2023-02-28 07:05 | PC.NURSE ---
PATIENT ACCIDENTLY PULLED IV OUT OF HER RFA..
--- NOTE | 2023-02-28 07:42 | P.CONPHA_ITS ---
Pharmacy Consult Date: 02/28/23 Time: 07:42 Referring provider: DR. CAMP Reason for Consult:: VANCOMYCIN DOSING Allergies Allergy/AdvReac Type Severity Reaction Status Date / Time lansoprazole [From PREVACID] Allergy Intermediate Palpitation Verified 12/03/22 14:53 s omeprazole [From PRILOSEC] Allergy Intermediate Palpitation Verified 12/03/22 14:53 s [id number] Reductase AdvReac Intermediate Muscle Pain Verified 12/03/22 14:53 Inhibitor atorvastatin AdvReac Cramping Verified 12/03/22 14:53 of the Muscles Home Medications Medication Instructions Recorded Confirmed Type albuterol sulfate 90 mcg/actuation 1 inh inhalation Q6HP PRN 01/24/22 12/03/22 Rx aerosol inhaler Shortness Of Breath #1 g levothyroxine 25 mcg tablet 25 mcg PO DAILY THYROID 02/26/22 12/03/22 History rivaroxaban 2.5 mg tablet (Xarelto) 2.5 mg PO BID PAD 02/26/22 12/03/22 History rosuvastatin 40 mg tablet (Crestor) 40 mg PO DAILY Cholesterol 02/26/22 12/03/22 History ondansetron HCl 4 mg tablet 4 mg PO TID PRN nausea and 10/19/22 12/03/22 Rx vomiting #30 tabs fluconazole 150 mg tablet 150 mg PO DAILY yeast 5 days #5 10/24/22 12/03/22 Rx (Diflucan) tabs furosemide 40 mg tablet 40 mg PO BID Fluid 10/24/22 12/03/22 History mupirocin 2 % topical ointment See Rx Instructions .Route 10/24/22 12/03/22 History .COMPLEX skin rash nystatin 100,000 unit/gram topical See Rx Instructions .Route 10/24/22 12/03/22 History powder .COMPLEX yeast skin infection spironolactone 50 mg tablet 50 mg PO BID Fluid 10/24/22 12/03/22 History terbinafine HCl 250 mg tablet See Rx Instructions .Route 10/24/22 12/03/22 History .COMPLEX nail fungal infection butenafine 1 % topical cream 1 applic topical BID #90 grams 10/30/22 12/03/22 Rx ketorolac 10 mg tablet 10 mg PO TID 5 days #15 tabs 12/03/22 12/03/22 Rx prednisone 10 mg tablet 10 mg PO DAILY #5 tabs 12/03/22 12/03/22 Rx meclizine 25 mg tablet See Rx Instructions .Route 12/13/22 Rx .COMPLEX #30 tabs sod picosulf 10 mg-magnes 3.5 160 ml PO DAILY 2 doses #350 mL 01/14/23 Rx gram-citric 12 gram/160 mL oral solution (Clenpiq) aspirin 81 mg tablet,delayed 81 mg PO DAILY Blood Thinner #90 02/08/23 Rx release tabs clonazepam 0.5 mg tablet (Klonopin) 0.5 mg PO BID Anxiety #60 tabs 02/08/23 Rx esomeprazole magnesium 20 mg See Rx Instructions .Route 02/08/23 Rx capsule,delayed release .COMPLEX #30 caps gabapentin 800 mg tablet 800 mg PO QID Pain #120 tabs 02/08/23 Rx ipratropium 0.5 mg-albuterol 3 mg 3 ml inhalation QID PRN wheezing 02/08/23 Rx (2.5 mg base)/3 mL nebulization #180 mL soln oxycodone-acetaminophen 10 mg-325 1 tab PO QIDP PRN Moderate Pain 02/08/23 Rx mg tablet (Percocet) (Scale Score 5-6) #120 tabs New Prescriptions to Start Prescriptions: Height: 1.63 m Weight: 71.849 kg Laboratory Results:: Laboratory Results - last 24 hr 02/27/23 17:48: WBC 7.8, RBC 4.84, Hgb 15.3, Hct 46.0, MCV 95.1, MCH 31.6 H, MCHC 33.2, RDW 13.7, Plt Count 235, MPV 7.5, Neut % (Auto) 77.5, Lymph % (Auto) 17.4, [place] % (Auto) 4.0, Eos % (Auto) 0.3, Baso % (Auto) 0.8, Neut # (Auto) 6.0, Lymph # (Auto) 1.4, [place] # (Auto) 0.3, Eos # (Auto) 0.0, Baso # (Auto) 0.1, Sodium 135 L, Potassium 4.2, Chloride 94 L, Carbon Dioxide 37 H, Anion Gap 8.2, BUN 9, Creatinine 0.60, Estimated Creat Clear 107, Estimated GFR 102, Est GFR ( Amer) 123, Glucose 125 H, Calcium 9.6, Total Bilirubin 0.8, AST 34, ALT 19, Alkaline Phosphatase 76, Total Protein 8.6 H D, Albumin 4.7, Globulin 3.9 H, Albumin/Globulin Ratio 1.2, Lipase 117 02/28/23 02:55: WBC 11.3 H D, RBC 4.69, Hgb 14.6, Hct 44.0, MCV 93.8, MCH 31.2, MCHC 33.3, RDW 13.9, Plt Count 206, MPV 7.5, Neut % (Auto) 88.2 H, Lymph % (Auto) 7.7 L, [place] % (Auto) 3.4, Eos % (Auto) 0.4, Baso % (Auto) 0.3, Neut # (Auto) 10.0 H, Lymph # (Auto) 0.9, [place] # (Auto) 0.4, Eos # (Auto) 0.1, Baso # (Auto) 0.0, Total Counted 100, Neutrophils % (Manual) 87 H, Lymphocytes % (Manual) 13, Platelet Estimate Normal, RBC Morphology Not Reportable, Stomatocytes 2+, Lactate 2.1 02/28/23 06:40: WBC 9.2, RBC 4.21, Hgb 13.4, Hct 39.6, MCV 94.1, MCH 31.9 H, MCHC 33.8, RDW 13.8, Plt Count 165, MPV 7.8, Neut % (Auto) 84.8 H, Lymph % (Auto) 10.5, [place] % (Auto) 3.9, Eos % (Auto) 0.5, Baso % (Auto) 0.3, Neut # (Auto) 7.8, Lymph # (Auto) 1.0, [place] # (Auto) 0.4, Eos # (Auto) 0.1, Baso # (Auto) 0.0, Sodium 134 L, Potassium 3.9, Chloride 103, Carbon Dioxide 28, Anion Gap 6.9, BUN 11, Creatinine 0.60, Estimated Creat Clear 113, Estimated GFR 102, Est GFR ( Amer) 123, Glucose 119 H, Lactate 1.7, Calcium 7.9 L Medical History: Medical History (Updated 02/27/23 @ 23:20 by Judie Howard [facility]) Anxiety disorder COPD (chronic obstructive pulmonary disease) Femoral artery occlusion Femoral artery occlusion Hypothyroidism PAD (peripheral artery disease) Tobacco abuse Assessment and Plan Assessment and plan all Dx Assessment and Plan for all problems:: Pharmacokinetic dosing service Objective: Patient: Floor: Age: 62 yo Serum creatinine: 0.6 mg/dL Height: 64.2 Inches Weight (kg): 71.9 Assessment: IBW (kg): 55.16 Dosing wt(kg): 71.9 Estimated Creatinine clearance (ml/min): 86.8 CRCL method: Cockcroft and Gault using ibw(default). Drug selected: Vancomycin Loading dose (mg): 0 Vd (liters): 57.5 (factor used: 0.8 L/kg) Jean Marie (hr-1): 0.076 Half life (hrs): 9.12 Recommended dose: 1250 mg Interval: 12 hrs Infusion time (hrs): 2.0 Predicted peak (mcg/mL): 33.7 Predicted trough (mcg/mL): 15.76 Total body weight is being used for vancomycin dosing. Recommendations: Give Vancomycin 1250 mg q 12 hrs with an expected Cpeak of 33.7 mcg/ml and an expected Ctrough of 15.76 mcg/ml ----Vanco only - ignore for aminoglycosides----- CLvanco= 4.37 L/hr AUC 0-24 /MINE Data: MINE 0.5 mcg/mL: AUC/MINE: 1144.2 MINE 1.0 mcg/mL: AUC/MINE: 572.1
--- NOTE | 2023-02-28 08:00 | XR_ITS ---
FINAL REPORT CLINICAL HISTORY: hypoxia COMPARISON: 02/27/2023 FINDINGS: A single portable view of the chest was obtained. The heart size and pulmonary vascularity are within normal limits. The mediastinum is within normal limits. Bibasilar opacities are consistent with pneumonia. The bony thorax is intact. IMPRESSION: Bibasilar pneumonia. Reviewed, Interpreted and Dictated by Steve Hector III, MD Transcribed by Melonie Garcia Authenticated and . [facility]
--- NOTE | 2023-02-28 08:36 | PC.NURSE ---
#20g Saline Lock inserted in left wrist. Good blood return noted. Flushes easily. Tolerated well. Secured with tape and coban.
[2023-02-28] MEDS: GABAPENTIN 800MG TABLET 800 MG PO ×2 (08:40→20:52)
[2023-02-28] MEDS: clonazePAM 0.5MG TABLET 0.5 MG PO ×2 (08:40→20:51)
--- NOTE | 2023-02-28 08:49 | EXP.SURG.PN ---
Subjective Patient reports: feels better Exam Data for Last 24 hours Vital signs and Labs for Last 24 Hours: Temp Pulse Resp BP Pulse Ox O2 Del Method O2 Flow Rate 98.0 F 116 H 18 127/81 90 L Nasal Cannula 5 02/28/23 08:00 02/28/23 08:00 02/28/23 08:00 02/28/23 08:00 02/28/23 08:00 02/28/23 08:00 02/28/23 08:00 Laboratory Results - last 24 hr 02/27/23 17:48: WBC 7.8, RBC 4.84, Hgb 15.3, Hct 46.0, MCV 95.1, MCH 31.6 H, MCHC 33.2, RDW 13.7, Plt Count 235, MPV 7.5, Neut % (Auto) 77.5, Lymph % (Auto) 17.4, [place] % (Auto) 4.0, Eos % (Auto) 0.3, Baso % (Auto) 0.8, Neut # (Auto) 6.0, Lymph # (Auto) 1.4, [place] # (Auto) 0.3, Eos # (Auto) 0.0, Baso # (Auto) 0.1, Sodium 135 L, Potassium 4.2, Chloride 94 L, Carbon Dioxide 37 H, Anion Gap 8.2, BUN 9, Creatinine 0.60, Estimated Creat Clear 107, Estimated GFR 102, Est GFR ( Amer) 123, Glucose 125 H, Calcium 9.6, Total Bilirubin 0.8, AST 34, ALT 19, Alkaline Phosphatase 76, Total Protein 8.6 H D, Albumin 4.7, Globulin 3.9 H, Albumin/Globulin Ratio 1.2, Lipase 117 02/28/23 02:55: WBC 11.3 H D, RBC 4.69, Hgb 14.6, Hct 44.0, MCV 93.8, MCH 31.2, MCHC 33.3, RDW 13.9, Plt Count 206, MPV 7.5, Neut % (Auto) 88.2 H, Lymph % (Auto) 7.7 L, [place] % (Auto) 3.4, Eos % (Auto) 0.4, Baso % (Auto) 0.3, Neut # (Auto) 10.0 H, Lymph # (Auto) 0.9, [place] # (Auto) 0.4, Eos # (Auto) 0.1, Baso # (Auto) 0.0, Total Counted 100, Neutrophils % (Manual) 87 H, Lymphocytes % (Manual) 13, Platelet Estimate Normal, RBC Morphology Not Reportable, Stomatocytes 2+, Lactate 2.1 02/28/23 06:40: WBC 9.2, RBC 4.21, Hgb 13.4, Hct 39.6, MCV 94.1, MCH 31.9 H, MCHC 33.8, RDW 13.8, Plt Count 165, MPV 7.8, Neut % (Auto) 84.8 H, Lymph % (Auto) 10.5, [place] % (Auto) 3.9, Eos % (Auto) 0.5, Baso % (Auto) 0.3, Neut # (Auto) 7.8, Lymph # (Auto) 1.0, [place] # (Auto) 0.4, Eos # (Auto) 0.1, Baso # (Auto) 0.0, Sodium 134 L, Potassium 3.9, Chloride 103, Carbon Dioxide 28, Anion Gap 6.9, BUN 11, Creatinine 0.60, Estimated Creat Clear 113, Estimated GFR 102, Est GFR ( Amer) 123, Glucose 119 H, Lactate 1.7, Calcium 7.9 L I & O for Last 24 hours: Intake & Output 02/25/23 02/26/23 02/27/23 02/28/23 11:59 11:59 11:59 11:59 Intake Total 2810 / 2810 Output Total 200 / 200 Balance 2610 / 2610 Weight 158 lb 6.4 oz Constitutional Constitutional: no acute distress *Routine Respiratory Exam Respiratory: Absent respiratory distress *Routine Abdominal Exam Abdominal: Present soft Progress Note: A&P Assessment and plan (1) Esophageal obstruction due to food impaction: Status: Acute Assessment and plan: Continue with clear liquid diet today followed by full liquid diet for 24 hours. Advance to soft diet if she tolerates the above Likely repeat EGD in 6-8 weeks Continue acid suppression (2) COPD (chronic obstructive pulmonary disease): Status: Chronic (3) Hypoxia: Status: Acute Assessment and plan: Management as per primary service
[2023-02-28 09:15] LABS: Lactic Acid Follow Up (RFLX 1) 3.9 mmol/L (0.7-2.1)
[2023-02-28 11:01] LABS: Reflex Lactic (2 hrs) Add Lactic Reflex
--- NOTE | 2023-02-28 11:58 | [facility].PHAINT1 ---
Pharmacy Intervention Comments: Home med list verified with patient at bedside and with external pharmacy.
[2023-02-28 12:56] LABS: Lactic Acid Follow up (RFLX 2) 2.9 mmol/L (0.7-2.1)
--- NOTE | 2023-02-28 18:26 | P.PN_ITS ---
Subjective *Date: 02/28/23 *Time: 18:26 Interval history: Feeling little better this morning. Tolerating p.o. intake. Requesting her pain regimen, has not had her pain meds consistently given her obstruction, causing some breakthrough pain in her legs. Denies any further vomiting. Farhana rating p.o. intake. On 5 L on morning rounds. Medical Exam Vital signs and Labs for Last 24 Hours: Vital Signs Temp Pulse Pulse Resp BP BP Pulse Ox 02/28/23 17:53 89 02/28/23 17:53 87 02/28/23 17:53 93 L 02/28/23 17:00 02/28/23 16:00 100 H 02/28/23 12:00 100 H 02/28/23 15:25 98.4 F 95 H 18 127/81 97 02/28/23 15:00 02/28/23 13:00 02/28/23 12:00 98.1 F 101 H 18 150/84 H 95 02/28/23 08:00 110 H 02/28/23 11:00 02/28/23 11:08 110 H 02/28/23 11:08 114 H 02/28/23 11:08 96 02/28/23 08:00 116 H 90 L 02/28/23 09:00 02/28/23 08:00 98.0 F 116 H 18 127/81 90 L 02/28/23 06:23 106 H 02/28/23 06:23 104 H 02/28/23 06:23 94 L 02/28/23 06:15 02/28/23 04:00 99.3 F 67 17 151/82 H 92 L 02/28/23 03:25 103.1 F H 02/28/23 03:25 103.1 F H 02/28/23 04:30 02/28/23 04:07 127 H 02/28/23 03:00 102.6 F H 143 H 18 120/83 84 L 02/28/23 03:00 02/28/23 03:54 101.9 F H 132 H 20 115/61 92 L 02/28/23 02:00 100.5 F H 133 H 18 180/116 H 02/28/23 01:00 02/28/23 01:00 99.5 F 113 H 16 144/94 H 88 L 02/28/23 00:30 99.3 F 110 H 18 140/90 90 L 02/28/23 00:00 99.0 F 110 H 18 152/92 H 87 L 02/27/23 23:45 99.0 F 111 H 20 156/92 H 86 L 02/27/23 23:30 99.2 F 111 H 18 156/94 H 89 L 02/27/23 23:15 98.7 F 107 H 20 193/95 H 90 L 02/27/23 23:00 98.7 F 111 H 20 187/105 H 89 L 02/27/23 23:00 02/28/23 00:05 108 H 02/28/23 00:05 114 H 02/27/23 22:40 89 L 02/27/23 22:27 104 H 18 157/86 H 87 L 02/27/23 21:53 104 H 19 157/86 H 90 L 02/27/23 21:43 97.3 F L 106 H 18 151/88 H 93 L 02/27/23 20:58 98.1 F 101 H 16 186/104 H 02/27/23 20:30 98 H 186/104 H 91 L 02/27/23 20:21 110 H 174/116 H 92 L 02/27/23 20:16 103 H 177/97 H 95 02/27/23 18:47 99 H 188/89 H 88 L 02/27/23 21:57 97.3 F L 106 H 18 151/88 H O2 Del Method O2 Flow Rate 02/28/23 17:53 02/28/23 17:53 02/28/23 17:53 Nasal Cannula 5 02/28/23 17:00 Nasal Cannula 4 02/28/23 16:00 02/28/23 12:00 02/28/23 15:25 Nasal Cannula 5 02/28/23 15:00 Nasal Cannula 4 02/28/23 13:00 Nasal Cannula 4 02/28/23 12:00 Nasal Cannula 5 02/28/23 08:00 02/28/23 11:00 Nasal Cannula 4 02/28/23 11:08 02/28/23 11:08 02/28/23 11:08 Nasal Cannula 5 02/28/23 08:00 Nasal Cannula 4 02/28/23 09:00 Nasal Cannula 4 02/28/23 08:00 Nasal Cannula 5 02/28/23 06:23 02/28/23 06:23 02/28/23 06:23 Nasal Cannula 5 02/28/23 06:15 Nasal Cannula 4 02/28/23 04:00 Nasal Cannula 02/28/23 03:25 02/28/23 03:25 02/28/23 04:30 Nasal Cannula 4 02/28/23 04:07 02/28/23 03:00 Nasal Cannula 4 02/28/23 03:00 Nasal Cannula 4 02/28/23 03:54 Nasal Cannula 4 02/28/23 02:00 Nasal Cannula 4 02/28/23 01:00 Nasal Cannula 4 02/28/23 01:00 Nasal Cannula 4 02/28/23 00:30 Nasal Cannula 4 02/28/23 00:00 Nasal Cannula 4 02/27/23 23:45 Nasal Cannula 4 02/27/23 23:30 Nasal Cannula 4 02/27/23 23:15 Nasal Cannula 4 02/27/23 23:00 Nasal Cannula 4 02/27/23 23:00 Nasal Cannula 4 02/28/23 00:05 02/28/23 00:05 02/27/23 22:40 Nasal Cannula 4 02/27/23 22:27 Nasal Cannula 4 02/27/23 21:53 Nasal Cannula 4 02/27/23 21:43 Nasal Cannula 4 02/27/23 20:58 Nasal Cannula 4 02/27/23 20:30 02/27/23 20:21 02/27/23 20:16 02/27/23 18:47 02/27/23 21:57 Intake and Output 02/28/23 02/28/23 02/28/23 07:59 15:59 23:59 Intake Total 2610 / 2880 270 / 2880 Output Total 200 / 200 0 / 200 Balance 2410 / 2680 0 / 2680 270 / 2680 Intake: Intake, Oral Amount 270 / 270 Intake, Total IV Amount 2610 / 2610 0.9 % Sodium Chloride 1000ML 2, 2160 / 2160 160 ml @ 1080 mls/hr IV .Q2H [facility] Rx#:[id number] Cefepime HCl 1 gm In 0.9 % 50 / 50 Sodium Chloride 50 ml @ 100 mls /hr IV Q12H [facility] Rx#:[id number] Ceftriaxone Sodium 1 gm In 0.9 50 / 50 % Sodium Chloride 50 ml @ 100 mls/hr IV Q24H [facility] Rx#:[id number] Metronidaz/Sod Chl 500 mg In 100 / 100 100 ml @ 100 mls/hr IV Q12H [facility] Rx#:[id number] Vancomycin/Water For Inj (Peg) 250 / 250 1.25 gm In 250 ml @ 125 mls/hr IV ONCE [facility] Rx#:[id number] Output: Output, Urine Amount 200 / 200 0 / 200 Other: Number of Unmeasured Voids 1 1 Weight 71.849 kg Patient Weight 02/28/23 23:59 Weight 71.849 kg Laboratory Results - last 24 hr 02/28/23 02:55: WBC 11.3 H D, RBC 4.69, Hgb 14.6, Hct 44.0, MCV 93.8, MCH 31.2, MCHC 33.3, RDW 13.9, Plt Count 206, MPV 7.5, Neut % (Auto) 88.2 H, Lymph % (Auto) 7.7 L, [place] % (Auto) 3.4, Eos % (Auto) 0.4, Baso % (Auto) 0.3, Neut # (Auto) 10.0 H, Lymph # (Auto) 0.9, [place] # (Auto) 0.4, Eos # (Auto) 0.1, Baso # (Auto) 0.0, Total Counted 100, Neutrophils % (Manual) 87 H, Lymphocytes % (Manual) 13, Platelet Estimate Normal, RBC Morphology Not Reportable, S tomatocytes 2+, Lactate 2.1 02/28/23 06:40: WBC 9.2, RBC 4.21, Hgb 13.4, Hct 39.6, MCV 94.1, MCH 31.9 H, MCHC 33.8, RDW 13.8, Plt Count 165, MPV 7.8, Neut % (Auto) 84.8 H, Lymph % (Auto) 10.5, [place] % (Auto) 3.9, Eos % (Auto) 0.5, Baso % (Auto) 0.3, Neut # (Auto) 7.8, Lymph # (Auto) 1.0, [place] # (Auto) 0.4, Eos # (Auto) 0.1, Baso # (Auto) 0.0, Sodium 134 L, Potassium 3.9, Chloride 103, Carbon Dioxide 28, Anion Gap 6.9, BUN 11, Creatinine 0.60, Estimated Creat Clear 113, Estimated GFR 102, Est GFR ( Amer) 123, Glucose 119 H, Lactate 1.7, Calcium 7.9 L 02/28/23 07:00: Lactate 3.9 H 02/28/23 12:29: Lactate 2.9 H I & O for Labs for Last 24 Hours: Intake & Output 02/25/23 02/26/23 02/27/23 02/28/23 23:59 23:59 23:59 23:59 Intake Total 200 / 200 2880 / 2880 Output Total 200 / 200 Balance 200 / 200 2680 / 2680 Weight 68.039 kg 71.849 kg Constitutional: Present mild distress, average body habitus and chronically ill appearing Head: Present atraumatic and normocephalic ENT: Present normal exam Neck: Present normal inspection Respiratory: Present prolonged expiratory phase, wheezes and crackles; Absent rhonchi Cardiac: Present Reg Rate and Rhythm GI: Present normal bowel sounds; Absent tenderness Extremities: Present normal inspection and full ROM Skin: Present intact; Absent erythema Neuro: Present Grossly Intact, alert, awake, oriented x 3 and moves all extremities Assessment and Plan *Assessment and plan (1) Sepsis: Status: Resolved Qualifiers: Sepsis acute organ dysfunction status: with acute organ dysfunction Category: Medical Code(s): A41.9 - Sepsis, unspecified organism (2) Pneumonia: Status: Acute Qualifiers: Laterality: unspecified laterality Lung location: unspecified part of lung Category: Medical Code(s): J18.9 - Pneumonia, unspecified organism (3) Esophageal obstruction due to food impaction: Status: Acute Category: Medical Code(s): T18.128A - Food in esophagus causing other injury, initial encounter; W44.F3XA - Food entering into or through a natural orifice, initial encounter (4) Hypertension: Status: Chronic Qualifiers: Hypertension type: essential hypertension Qualified Code(s): I10 - Essential (primary) hypertension Category: Medical Code(s): I10 - Essential (primary) hypertension (5) COPD (chronic obstructive pulmonary disease): Status: Chronic Qualifiers: COPD type: unspecified COPD Qualified Code(s): J44.9 - Chronic obstructive pulmonary disease, unspecified Category: Medical Code(s): J44.9 - Chronic obstructive pulmonary disease, unspecified (6) Hypothyroidism: Status: Chronic Qualifiers: Hypothyroidism type: acquired Qualified Code(s): E03.9 - Hypothyroidism, unspecified Category: Medical Code(s): E03.9 - Hypothyroidism, unspecified (7) Hypoxia: Status: Acute Category: Medical Code(s): R09.02 - Hypoxemia Plan This is a 62 year old female with a PMhx of COPD on 3L/NC intermittently at home who presented for food impaction. She undewent successful removal of foreign body but has possible aspiration event. Admitted for aspiration event. Developed fever overnight. Concern for sepsis secondary to aspiration pneumonia. On antibiotics with vancomycin, cefepime, Flagyl. Feeling somewhat better this morning. Continues to require inpatient management. Problems addressed as follows: Sepsis Aspiration pneumonia Acute on chronic hypoxemic respiratory failure COPD -Status post removal of food bolus by surgery. Had an aspiration event during procedure. Increased oxygen requirement. Fever overnight with tachycardia. Initiated on broad-spectrum antibiotics. Continue vancomycin, cefepime, Flagyl IV. Monitoring for toxicity. -White cell count 9.2 this morning. -Goal saturation greater 90%, currently on 5 L. Wean as tolerated. - Continue DuoNebs every 6 hours scheduled -CBC, CMP, magnesium ordered for the morning. Kidney function stable with creatinine 0.6 and BUN 11. Lactate elevated to 3.9, has improved with fluids. Chronic pain: Continue gabapentin 3 times a day for neuropathy, resume home oxycodone 4 times a day as needed for pain. Hypothyroid: Continue levothyroxine 25 mcg daily Anxiety: Continue Klonopin 0.5 mg twice daily. Holding anticoagulation in the setting of possible esophageal perforation. Advance diet Full code
[2023-03-01] VITALS (10 sets, daily range): BP systolic 81–148; BP diastolic 48–78; PULSE 80–202; RESP 17–20; TEMP 36.6–37.7; O2SAT 89–94; BMI 25.7
[2023-03-01] MEDS: OXYCODONE 10MG W/APAP 325MG TABLET 1 EACH PO ×3 (03:59→20:37)
[2023-03-01] MEDS: IPRATROPIUM/ALBUTEROL 3 ML NEB IH ×5 (06:20→23:23)
[2023-03-01] MEDS: LEVOTHYROXINE 25MCG (0.025MG) TAB 25 MCG PO (06:23)
[2023-03-01 06:37] LABS: Basophils % 0.2 % (0.1-2.0); Eosinophils % 0.3 % (0.1-12.0); Hematocrit 35.8 % (37.0-47.0); Lymphocytes # 1.4 K/mm3 (0.7-4.5); Lymphocytes % 11.3 % (10-50); Mean Corpuscular Hemoglobin 31.5 pg (27.0-31.2); Mean Corpuscular Volume 95.5 fl (81-99); Mean Platelet Volume 8.1 fl (7.4-10.4); Monocytes # 0.3 K/mm3 (0.1-1.0); Monocytes % 2.5 % (1.7-9.3); Neutrophils # 10.4 K/mm3 (1.8-7.8); Neutrophils % 85.7 % (37.0-80.0); Platelet Count 173 K/mm3 (142-424); Red Blood Count 3.75 M/mm3 (4.20-5.40); Red Cell Distribution Width 13.9 % (11.5-17.5); White Blood Count 12.2 K/mm3 (4.8-10.8)
[2023-03-01 06:43] LABS: Alanine Aminotransferase 12 U/L (12-78); Albumin Level 3.3 g/dl (3.5-5.0); Albumin/Globulin Ratio 1.1 (1.1-1.8); Alkaline Phosphatase 49 U/L (38-126); Anion Gap 5.6 mEq/L (5-15); Aspartate Amino Transferase 35 U/L (14-36); Bilirubin,Total 0.6 mg/dl (0.2-1.3); Blood Urea Nitrogen 9 mg/dl (7-17); Calcium 7.8 mg/dl (8.4-10.2); Carbon Dioxide 31 mmol/L (22.0-30.0); Chloride 102 mmol/L (98-107); Creatinine Clearance Estimated 108 mL/min (50-200); Estimated Glomerular Filt Rate 102 ml/min (>60); GFR (African American) 123 ML/MIN (>60); Globulin 2.9 g/dL (1.3-3.2); Glucose 103 mg/dl (74-100); Magnesium 1.6 mg/dl (1.6-2.3); Potassium 3.6 mmoL/L (3.5-5.1); Sodium 135 mmol/L (136-145); Total Protein,Serum 6.2 g/dl (6.3-8.2)
[2023-03-01 06:46] LABS: MANUAL DIFFERENTIAL MANUAL DIFFERENTIAL (MANUAL DIFF)
[2023-03-01 07:15] LABS: Hemoglobin 11.9 g/dL (12.2-16.2)
--- NOTE | 2023-03-01 08:25 | P.PN_ITS ---
Subjective Narrative: She states that she still acevedo(s) some trouble breathing . She also complains of sore throat. Exam Data for Last 24 hours Vital signs and Labs for Last 24 Hours: Temp Pulse Resp BP Pulse Ox O2 Del Method O2 Flow Rate 99.1 F 92 H 20 148/78 H 90 L Nasal Cannula 4 03/01/23 04:00 03/01/23 06:20 03/01/23 04:00 03/01/23 04:00 03/01/23 06:20 03/01/23 06:39 03/01/23 06:39 Laboratory Results - last 24 hr 02/28/23 07:00: Lactate 3.9 H 02/28/23 12:29: Lactate 2.9 H 03/01/23 05:44: WBC 12.2 H D, RBC 3.75 L, Hgb 11.9 L D, Hct 35.8 L, MCV 95.5, MCH 31.5 H, MCHC 33.0, RDW 13.9, Plt Count 173, MPV 8.1, Neut % (Auto) 85.7 H, Lymph % (Auto) 11.3, [place] % (Auto) 2.5, Eos % (Auto) 0.3, Baso % (Auto) 0.2, [place] # (Auto) 10.4 H, Lymph # (Auto) 1.4, [place] # (Auto) 0.3, Eos # (Auto) 0.0, Baso # (Auto) 0.0, Sodium 135 L, Potassium 3.6, Chloride 102, Carbon Dioxide 31 H, Anion Gap 5.6, BUN 9, Creatinine 0.60, Estimated Creat Clear 108, Estimated GFR 102, Est GFR ( Amer) 123, Glucose 103 H, Calcium 7.8 L, Magnesium 1.6, Total Bilirubin 0.6, AST 35, ALT 12 D, Alkaline Phosphatase 49, Total Protein 6.2 L D, Albumin 3.3 L D, Globulin 2.9, Albumin/Globulin Ratio 1.1 I & O for Last 24 hours: Intake & Output 02/26/23 02/27/23 02/28/23 03/01/23 11:59 11:59 11:59 11:59 Intake Total 2810 / 2810 1576 / 1576 Output Total 200 / 200 0 / 0 Balance 2610 / 2610 1576 / 1576 Weight 158 lb 6.4 oz 151 lb Constitutional Constitutional: no acute distress *Routine Respiratory Exam Respiratory: Absent respiratory distress *Routine Cardiovascular Exam Cardiovascular: Absent tachycardia Progress Note: A&P Assessment and plan (1) Pneumonia: Status: Acute Assessment and plan: as per primary service (2) Esophageal obstruction due to food impaction: Status: Acute Assessment and plan: Full liquid diet this AM Advance to soft diet if she tolerates the above Likely repeat EGD in 6-8 weeks Continue acid suppression (3) Sore throat: Status: Acute Assessment and plan: Chloraseptic ordered
[2023-03-01] MEDS: clonazePAM 0.5MG TABLET 0.5 MG PO ×2 (08:27→20:37)
[2023-03-01] MEDS: FUROSEMIDE 40MG/4ML VIAL 40 MG IV (08:27)
[2023-03-01] MEDS: GABAPENTIN 800MG TABLET 800 MG PO ×3 (08:27→20:37)
[2023-03-01 08:39] LABS: Lymphocytes % 7 % (10-50); Monocytes % 5 % (2-9); Neutrophils % 69 % (42-76); Total Cells Counted 100
[2023-03-01 08:40] LABS: Platelet Estimate Normal; RBC Morphology Normal
[2023-03-01] MEDS: METRONIDAZ/SOD CHL 500 MG/100 ML PIGGYBACK 100 MG IV ×2 (09:55→21:57)
[2023-03-01] MEDS: CEFEPIME HCL 1 GM in 0.9 % SODIUM CHLORIDE 50 ML IV ×2 (09:55→22:29)
[2023-03-01] MEDS: PHENOL THROAT SPRAY 177 ML BOTTLE MM (10:54)
[2023-03-01] MEDS: VANCOMYCIN/WATER FOR INJ (PEG) 1.25 GM/250 ML PIGGYBACK IV (10:55)
--- NOTE | 2023-03-01 11:27 | P.PN_ITS ---
Subjective *Date: 03/01/23 *Time: 13:20 Interval history: Patient states she is feeling little better, ambulating more around the room. Still necessitating 2 to 4 L while active. Afebrile. No nausea or vomiting. Tolerating p.o. intake. Medical Exam Vital signs and Labs for Last 24 Hours: Vital Signs Temp Pulse Pulse Resp BP Pulse Ox O2 Del Method 03/01/23 11:05 95 H 03/01/23 11:05 100 H 03/01/23 11:05 89 L Nasal Cannula 03/01/23 09:00 Nasal Cannula 03/01/23 08:00 90 L Nasal Cannula 03/01/23 08:00 98.2 F 98 H 18 133/75 89 L Nasal Cannula 03/01/23 08:00 100 H 03/01/23 06:20 92 H 03/01/23 06:20 100 H 03/01/23 06:20 90 L Nasal Cannula 03/01/23 06:39 Nasal Cannula 03/01/23 05:00 Nasal Cannula 03/01/23 04:00 99.1 F 111 H 20 148/78 H 92 L Nasal Cannula 03/01/23 04:00 202 H 03/01/23 03:00 Nasal Cannula 03/01/23 01:00 Nasal Cannula 03/01/23 00:00 100 H 02/28/23 20:00 90 03/01/23 00:00 99.9 F H 103 H 17 125/53 L 92 L Room Air 02/28/23 23:26 97 H 02/28/23 23:26 97 H 02/28/23 22:36 Nasal Cannula 02/28/23 21:00 Nasal Cannula 02/28/23 20:00 92 L Nasal Cannula 02/28/23 20:00 98.9 F 98 H 16 124/71 95 02/28/23 19:00 Nasal Cannula 02/28/23 17:53 89 02/28/23 17:53 87 02/28/23 17:53 93 L Nasal Cannula 02/28/23 17:00 Nasal Cannula 02/28/23 16:00 100 H 02/28/23 12:00 100 H 02/28/23 15:25 98.4 F 95 H 18 127/81 97 Nasal Cannula 02/28/23 15:00 Nasal Cannula 02/28/23 13:00 Nasal Cannula 02/28/23 12:00 98.1 F 101 H 18 150/84 H 95 Nasal Cannula O2 Flow Rate 03/01/23 11:05 03/01/23 11:05 03/01/23 11:05 3.5 03/01/23 09:00 4 03/01/23 08:00 4 03/01/23 08:00 4 03/01/23 08:00 03/01/23 06:20 03/01/23 06:20 03/01/23 06:20 4 03/01/23 06:39 4 03/01/23 05:00 4 03/01/23 04:00 03/01/23 04:00 03/01/23 03:00 4 03/01/23 01:00 4 03/01/23 00:00 02/28/23 20:00 03/01/23 00:00 02/28/23 23:26 02/28/23 23:26 02/28/23 22:36 4 02/28/23 21:00 4 02/28/23 20:00 5 02/28/23 20:00 02/28/23 19:00 4 02/28/23 17:53 02/28/23 17:53 02/28/23 17:53 5 02/28/23 17:00 4 02/28/23 16:00 02/28/23 12:00 02/28/23 15:25 5 02/28/23 15:00 4 02/28/23 13:00 4 02/28/23 12:00 5 Intake and Output 02/28/23 03/01/23 03/01/23 23:59 07:59 15:59 Intake Total 1216 / 3826 360 / 360 Output Total 0 / 200 0 / 240 240 / 240 Balance 1216 / 3626 0 / 120 120 / 120 Intake: Intake, Oral Amount 270 / 270 360 / 360 Intake, Total IV Amount 946 / 3556 0.9 % Sodium Chloride 1000ML 1, 796 / 796 000 ml @ 100 mls/hr IV .Q10H [facility] Rx#:[id number] Cefepime HCl 1 gm In 0.9 % 50 / 100 Sodium Chloride 50 ml @ 100 mls /hr IV Q12H [facility] Rx#:[id number] Metronidaz/Sod Chl 500 mg In 100 / 200 100 ml @ 100 mls/hr IV Q12H [facility] Rx#:[id number] Output: Output, Urine Amount 0 / 200 0 / 240 240 / 240 Other: Number of Unmeasured Voids 1 1 1 Weight 68.492 kg Patient Weight 03/01/23 23:59 Weight 68.492 kg Laboratory Results - last 24 hr 02/28/23 12:29: Lactate 2.9 H 03/01/23 05:44: WBC 12.2 H D, RBC 3.75 L, Hgb 11.9 L D, Hct 35.8 L, MCV 95.5, MCH 31.5 H, MCHC 33.0, RDW 13.9, Plt Count 173, MPV 8.1, Neut % (Auto) 85.7 H, Lymph % (Auto) 11.3, [place] % (Auto) 2.5, Eos % (Auto) 0.3, Baso % (Auto) 0.2, Neut # (Auto) 10.4 H, Lymph # (Auto) 1.4, [place] # (Auto) 0.3, Eos # (Auto) 0.0, Baso # (Auto) 0.0, Total Counted 100, Neutrophils % (Manual) 69, Band Neutrophils % 19.0 H, Lymphocytes % (Manual) 7 L, Monocytes % (Manual) 5, Platelet Estimate Normal, RBC Morphology Normal, Sodium 135 L, Potassium 3.6, Chloride 102, Carbon Dioxide 31 H, Anion Gap 5.6, BUN 9, Creatinine 0.60, Estimated Creat Clear 108, Estimated GFR 102, Est GFR ( Amer) 123, Glucose 103 H, Calcium 7.8 L, Magnesium 1.6, Total Bilirubin 0.6, AST 35, ALT 12 D, Alkaline Phosphatase 49, Total Protein 6.2 L D, Albumin 3.3 L D, Globulin 2.9, Albumin/Globulin Ratio 1.1 I & O for Labs for Last 24 Hours: Intake & Output 02/26/23 02/27/23 02/28/23 03/01/23 23:59 23:59 23:59 23:59 Intake Total 200 / 200 3826 / 3826 360 / 360 Output Total 200 / 200 240 / 240 Balance 200 / 200 3626 / 3626 120 / 120 Weight 68.039 kg 71.849 kg 68.492 kg Constitutional: Present no acute distress, average body habitus and chronically ill appearing Head: Present atraumatic and normocephalic ENT: Present normal exam Neck: Present normal inspection Respiratory: Present prolonged expiratory phase and crackles; Absent rhonchi or wheezes Cardiac: Present Reg Rate and Rhythm GI: Present normal bowel sounds; Absent tenderness Extremities: Present normal inspection and full ROM Skin: Present intact; Absent erythema Neuro: Present Grossly Intact, alert, awake, oriented x 3 and moves all extremities Assessment and Plan *Assessment and plan (1) Sepsis: Status: Resolved Qualifiers: Sepsis acute organ dysfunction status: with acute organ dysfunction Category: Medical Code(s): A41.9 - Sepsis, unspecified organism (2) Pneumonia: Status: Acute Qualifiers: Laterality: unspecified laterality Lung location: unspecified part of lung Category: Medical Code(s): J18.9 - Pneumonia, unspecified organism (3) Esophageal obstruction due to food impaction: Status: Acute Category: Medical Code(s): T18.128A - Food in esophagus causing other injury, initial encounter; W44.F3XA - Food entering into or through a natural orifice, initial encounter (4) Hypertension: Status: Chronic Qualifiers: Hypertension type: essential hypertension Qualified Code(s): I10 - Essential (primary) hypertension Category: Medical Code(s): I10 - Essential (primary) hypertension (5) COPD (chronic obstructive pulmonary disease): Status: Chronic Qualifiers: COPD type: unspecified COPD Qualified Code(s): J44.9 - Chronic obstructive pulmonary disease, unspecified Category: Medical Code(s): J44.9 - Chronic obstructive pulmonary disease, unspecified (6) Hypothyroidism: Status: Chronic Qualifiers: Hypothyroidism type: acquired Qualified Code(s): E03.9 - Hypothyroidism, unspecified Category: Medical Code(s): E03.9 - Hypothyroidism, unspecified (7) Hypoxia: Status: Acute Category: Medical Code(s): R09.02 - Hypoxemia Plan This is a 62 year old female with a PMhx of COPD on 3L/NC intermittently at home who presented for food impaction. She undewent successful removal of foreign body but has possible aspiration event. Admitted for aspiration event. Developed fever overnight. Concern for sepsis secondary to aspiration pneumonia. De-escalate antibiotics to cefepime and Flagyl. Feeling somewhat better this morning. Continues to require inpatient management. Anticipate discharge in the next 24 hours problems addressed as follows: Sepsis Aspiration pneumonia Acute on chronic hypoxemic respiratory failure COPD -Status post removal of food bolus by surgery. Had an aspiration event during procedure. Increased oxygen requirement. Fever overnight with tachycardia. Initiated on broad-spectrum antibiotics. Continue cefepime, Flagyl IV. Monitoring for toxicity. -White cell count 12 this morning. Repeat CBC, CMP, magnesium ordered for the morning. -Goal saturation greater 90%, currently on 2-4L. Wean as tolerated. - Continue DuoNebs every 6 hours scheduled -Given IV fluid volume, will diurese x 1 today to see if this aids in weaning oxygen. - Kidney function stable with creatinine 0.6 and BUN 9. Chronic pain: Continue gabapentin 3 times a day for neuropathy, home oxycodone 4 times a day as needed for pain. Hypothyroid: Continue levothyroxine 25 mcg daily Anxiety: Continue Klonopin 0.5 mg twice daily. Holding anticoagulation in the setting of possible esophageal perforation. Advance diet Full code Famotidine 40 mg p.o. twice daily
[2023-03-01] MEDS: IBUPROFEN 400 MG TABLET 800 MG PO (11:45)
--- NOTE | 2023-03-01 13:24 | XR_ITS ---
FINAL REPORT CLINICAL HISTORY: increased O2 requirement COMPARISON: 02/27/2023 FINDINGS: A single portable view of the chest was obtained. The heart size and pulmonary vascularity are within normal limits. The mediastinum is within normal limits. Left lung base opacities likely represent atelectasis or pneumonia. The bony thorax is intact. IMPRESSION: Left lung base opacities, likely atelectasis or pneumonia. Reviewed, Interpreted and Dictated by Steve Hector III, MD Transcribed by Melonie Garcia Authenticated and . [facility]
[2023-03-01] MEDS: BUDESONIDE 0.5MG/2ML NEB 0.5 MG IH ×2 (13:35→18:16)
[2023-03-01] MEDS: FAMOTIDINE 20MG TABLET 40 MG PO (20:37)
[2023-03-02] VITALS: BP 116/74; PULSE 100; PULSE 96; RESP 18; TEMP 36.9; O2SAT 92
--- NOTE | 2023-03-02 03:55 | PC.NURSE ---
Pt is A&Ox4 and currently on 4L of O2. Pt has tolerated antibiotic therapy well. Pt has complained of pain once this shift and was treated per MAR. Pt daughter at bedside, whom helped her get a shower. Pt denies other needs and pain at this time.
[2023-03-02 04:00] VITALS: BP 115/67; PULSE 103; RESP 18; TEMP 37; O2SAT 99; BMI 26.5
[2023-03-02 06:00] VITALS: PULSE 93; PULSE 94; O2SAT 93
[2023-03-02] MEDS: BUDESONIDE 0.5MG/2ML NEB 0.5 MG IH (06:00)
[2023-03-02] MEDS: IPRATROPIUM/ALBUTEROL 3 ML NEB IH ×2 (06:00→11:20)
[2023-03-02] MEDS: OXYCODONE 10MG W/APAP 325MG TABLET 1 EACH PO ×2 (06:31→11:57)
[2023-03-02] MEDS: PHENOL THROAT SPRAY 177 ML BOTTLE MM (06:31)
[2023-03-02 07:11] LABS: Alanine Aminotransferase 13 U/L (12-78); Albumin Level 3.6 g/dl (3.5-5.0); Albumin/Globulin Ratio 1.2 (1.1-1.8); Alkaline Phosphatase 60 U/L (38-126); Anion Gap 8.3 mEq/L (5-15); Aspartate Amino Transferase 29 U/L (14-36); Bilirubin,Total 0.8 mg/dl (0.2-1.3); Blood Urea Nitrogen 10 mg/dl (7-17); Carbon Dioxide 31 mmol/L (22.0-30.0); Chloride 99 mmol/L (98-107); Creatinine Clearance Estimated 111 mL/min (50-200); Estimated Glomerular Filt Rate 102 ml/min (>60); GFR (African American) 123 ML/MIN (>60); Globulin 3.1 g/dL (1.3-3.2); Glucose 93 mg/dl (74-100); Potassium 3.3 mmoL/L (3.5-5.1); Sodium 135 mmol/L (136-145); Total Protein,Serum 6.7 g/dl (6.3-8.2)
[2023-03-02 07:19] LABS: Basophils % 0.4 % (0.1-2.0); Eosinophils # 0.1 K/mm3 (0.0-0.4); Eosinophils % 1.5 % (0.1-12.0); Hematocrit 40.9 % (37.0-47.0); Hemoglobin 13.6 g/dL (12.2-16.2); Lymphocytes # 1.4 K/mm3 (0.7-4.5); Lymphocytes % 17.7 % (10-50); Mean Corpuscular HGB Conc 33.2 g/dL (31.8-35.4); Mean Corpuscular Hemoglobin 32.1 pg (27.0-31.2); Mean Corpuscular Volume 96.7 fl (81-99); Mean Platelet Volume 7.9 fl (7.4-10.4); Monocytes # 0.3 K/mm3 (0.1-1.0); Monocytes % 3.9 % (1.7-9.3); Neutrophils % 76.6 % (37.0-80.0); Platelet Count 152 K/mm3 (142-424); Red Blood Count 4.23 M/mm3 (4.20-5.40); Red Cell Distribution Width 13.7 % (11.5-17.5); White Blood Count 7.9 K/mm3 (4.8-10.8)
[2023-03-02 08:00] VITALS: BP 132/79; PULSE 105; PULSE 110; RESP 18; TEMP 37.6; O2SAT 90
[2023-03-02 08:00] LABS: Magnesium 1.6 mg/dl (1.6-2.3)
[2023-03-02] MEDS: clonazePAM 0.5MG TABLET 0.5 MG PO (08:06)
[2023-03-02] MEDS: FAMOTIDINE 20MG TABLET 40 MG PO (08:07)
[2023-03-02] MEDS: FUROSEMIDE 40MG/4ML VIAL 40 MG IV (08:08)
[2023-03-02] MEDS: LEVOTHYROXINE 25MCG (0.025MG) TAB 25 MCG PO (08:08)
[2023-03-02] MEDS: GABAPENTIN 800MG TABLET 800 MG PO (08:08)
[2023-03-02] MEDS: IBUPROFEN 400 MG TABLET 800 MG PO (08:14)
--- NOTE | 2023-03-02 08:57 | ECG_ITS ---
APPROVED REPORT Exam: Resting ECG HR:106 bpm ECG Measurements Heart Rate 106 AXES SC 132 P 39 QRSd 85 QRS 22 QT 335 T 36 QTc 397 Conclusion SINUS TACHYCARDIA POSSIBLE LEFT ATRIAL ENLARGEMENT [-0.1mV P-WAVE IN V1/V2] POSSIBLE RIGHT VENTRICULAR CONDUCTION DELAY [RSR (QR) IN V1/V2] ABNORMAL RHYTHM ECG INTERPRETATION BASED ON A DEFAULT AGE OF 40 YEARS UNCONFIRMED REPORT Electronically signed by : Julito Edmondson MD 03/03/2023 15:13:19
--- NOTE | 2023-03-02 09:12 | EXP.PHA.PN ---
Subjective *Date: 03/02/23 *Time: 09:12 Medical Exam Vital signs and Labs for Last 24 Hours: Vital Signs Temp Pulse Pulse Resp BP Pulse Ox O2 Del Method 03/02/23 08:00 99.6 F 105 H 18 132/79 90 L Nasal Cannula 03/02/23 06:53 Nasal Cannula 03/02/23 06:00 93 H 03/02/23 06:00 94 H 03/02/23 06:00 93 L Nasal Cannula 03/02/23 04:00 98.6 F 103 H 18 115/67 99 Nasal Cannula 03/02/23 00:00 100 H 03/02/23 04:37 Nasal Cannula 03/02/23 03:00 Nasal Cannula 03/02/23 00:00 98.4 F 96 H 18 116/74 92 L Nasal Cannula 03/02/23 00:48 Nasal Cannula 03/01/23 23:00 Nasal Cannula 03/01/23 21:00 Nasal Cannula 03/01/23 20:00 92 L Nasal Cannula 03/01/23 23:23 85 03/01/23 23:23 85 03/01/23 20:00 97.8 F 100 H 18 123/71 92 L Nasal Cannula 03/01/23 20:00 90 03/01/23 19:00 Nasal Cannula 03/01/23 18:16 92 H 03/01/23 18:16 92 H 03/01/23 18:16 89 L Nasal Cannula 03/01/23 16:00 97.9 F 83 20 93/52 L 94 L Nasal Cannula 03/01/23 16:00 80 03/01/23 17:00 Nasal Cannula 03/01/23 15:00 Nasal Cannula 03/01/23 12:00 100 H 03/01/23 13:00 Nasal Cannula 03/01/23 11:00 Nasal Cannula 03/01/23 12:00 98.8 F 101 H 18 81/48 L 92 L Nasal Cannula 03/01/23 11:05 95 H 03/01/23 11:05 100 H 03/01/23 11:05 89 L Nasal Cannula O2 Flow Rate 03/02/23 08:00 4 03/02/23 06:53 4 03/02/23 06:00 03/02/23 06:00 03/02/23 06:00 4 03/02/23 04:00 4 03/02/23 00:00 03/02/23 04:37 4 03/02/23 03:00 4.5 03/02/23 00:00 4.5 03/02/23 00:48 4.5 03/01/23 23:00 4.5 03/01/23 21:00 4.5 03/01/23 20:00 4.5 03/01/23 23:23 03/01/23 23:23 03/01/23 20:00 4.5 03/01/23 20:00 03/01/23 19:00 4.5 03/01/23 18:16 03/01/23 18:16 03/01/23 18:16 4 03/01/23 16:00 4 03/01/23 16:00 03/01/23 17:00 4.5 03/01/23 15:00 4.5 03/01/23 12:00 03/01/23 13:00 4.5 03/01/23 11:00 4.5 03/01/23 12:00 4 03/01/23 11:05 03/01/23 11:05 03/01/23 11:05 3.5 Intake and Output 03/01/23 03/02/23 03/02/23 23:59 07:59 15:59 Intake Total 240 / 1560 480 / 600 120 / 600 Output Total 0 / 890 0 / 0 Balance 240 / 670 480 / 600 120 / 600 Intake: Intake, Oral Amount 240 / 1560 480 / 600 120 / 600 Output: Output, Urine Amount 0 / 890 0 / 0 Other: Number of Unmeasured Voids 1 1 Weight 70.477 kg Patient Weight 03/02/23 23:59 Weight 70.477 kg Laboratory Results - last 24 hr 03/02/23 06:13: WBC 7.9 D, RBC 4.23, Hgb 13.6, Hct 40.9, MCV 96.7, MCH 32.1 H, MCHC 33.2, RDW 13.7, Plt Count 152, MPV 7.9, Neut % (Auto) 76.6, Lymph % (Auto) 17.7, [place] % (Auto) 3.9, Eos % (Auto) 1.5, Baso % (Auto) 0.4, Neut # (Auto) 6.0, Lymph # (Auto) 1.4, [place] # (Auto) 0.3, Eos # (Auto) 0.1, Baso # (Auto) 0.0, Sodium 135 L, Potassium 3.3 L, Chloride 99, Carbon Dioxide 31 H, Anion Gap 8.3, BUN 10, Creatinine 0.60, Estimated Creat Clear 111, Estimated GFR 102, Est GFR ( Amer) 123, Glucose 93, Calcium 8.0 L, Magnesium 1.6, Total Bilirubin 0.8, AST 29, ALT 13, Alkaline Phosphatase 60, Total Protein 6.7, Albumin 3.6, Globulin 3.1, Albumin/Globulin Ratio 1.2 I & O for Labs for Last 24 Hours: Intake & Output 02/27/23 02/28/23 03/01/23 03/02/23 23:59 23:59 23:59 23:59 Intake Total 200 / 200 3826 / 3826 1080 / 1560 600 / 600 Output Total 200 / 200 890 / 890 0 / 0 Balance 200 / 200 3626 / 3626 190 / 670 600 / 600 Weight 68.039 kg 71.849 kg 68.49 kg 70.477 kg The patient's infection will respond to the chosen ABx?: Yes Is the patient receiving the right drug, dose, and route?: Yes Could a more targeted ABx be ordered?: No (WBC DECREASED, AFEBRILE, NOTE INDICATED CONTINUING FLAGYL AND CEFEPIME)
--- NOTE | 2023-03-02 09:39 | EXP.SURG.PN ---
Subjective Patient reports: no new complaints Exam Data for Last 24 hours Vital signs and Labs for Last 24 Hours: Temp Pulse Resp BP Pulse Ox O2 Del Method O2 Flow Rate 99.6 F 105 H 18 132/79 90 L Nasal Cannula 4 03/02/23 08:00 03/02/23 08:00 03/02/23 08:00 03/02/23 08:00 03/02/23 08:00 03/02/23 08:00 03/02/23 08:00 Laboratory Results - last 24 hr 03/02/23 06:13: WBC 7.9 D, RBC 4.23, Hgb 13.6, Hct 40.9, MCV 96.7, MCH 32.1 H, MCHC 33.2, RDW 13.7, Plt Count 152, MPV 7.9, Neut % (Auto) 76.6, Lymph % (Auto) 17.7, Hidalgo % (Auto) 3.9, Eos % (Auto) 1.5, Baso % (Auto) 0.4, Neut # (Auto) 6.0, Lymph # (Auto) 1.4, Hidalgo # (Auto) 0.3, Eos # (Auto) 0.1, Baso # (Auto) 0.0, Sodium 135 L, Potassium 3.3 L, Chloride 99, Carbon Dioxide 31 H, Anion Gap 8.3, BUN 10, Creatinine 0.60, Estimated Creat Clear 111, Estimated GFR 102, Est GFR ( Amer) 123, Glucose 93, Calcium 8.0 L, Magnesium 1.6, Total Bilirubin 0.8, AST 29, ALT 13, Alkaline Phosphatase 60, Total Protein 6.7, Albumin 3.6, Globulin 3.1, Albumin/Globulin Ratio 1.2 I & O for Last 24 hours: Intake & Output 02/27/23 02/28/23 03/01/23 03/02/23 11:59 11:59 11:59 11:59 Intake Total 2810 / 2810 1576 / 1576 1320 / 1320 Output Total 200 / 200 240 / 240 650 / 650 Balance 2610 / 2610 1336 / 1336 670 / 670 Weight 158 lb 6.4 oz 151 lb 155 lb 6 oz Constitutional Constitutional: no acute distress *Routine Respiratory Exam Respiratory: Absent respiratory distress *Routine Abdominal Exam Abdominal: Present soft Progress Note: A&P Assessment and plan (1) Pneumonia: Status: Acute Assessment and plan: as per primary service (2) Esophageal obstruction due to food impaction: Status: Acute Assessment and plan: Soft diet this AM Likely repeat EGD in 6-8 weeks Continue acid suppression (3) Sore throat: Status: Acute Assessment and plan: Chloraseptic ordered
[2023-03-02] MEDS: METRONIDAZ/SOD CHL 500 MG/100 ML PIGGYBACK 100 MG IV (09:50)
--- NOTE | 2023-03-02 10:26 | PC.NURSE ---
Oxygen level 86% on room air at rest.
--- NOTE | 2023-03-02 10:27 | P.DS_ITS ---
General Admission date:: 02/27/23 Discharge date: 03/02/23 HPI HPI HPI: This is chronically ill patient with a past medical hx of of COPD, HTN, PAD, anxiety and tobacco dependence who presented to the ED with complaints of difficulty swallowing after eating ham and biscuit yesterday She endorses difficulty swallowing and episodes of pain and vomiting associated with this. She was note to have a forieign body on imaging and was taken to the [facility] by surgery for removal. She had successful removal of foreign body but had possible esophageal injury with likely aspiration episode. During recover she was unable to recover her oxygen saturations to baseline. She does endorse chronic home o2 use of 3 Liters. Her normal oxygen saturations at home are in the low 90s. After ample recovery time, she was unable to improve her oxygen saturations above 88% on 4L/NC. Dr Lundy recommended hospitalization overnight for monitoring, and aspiration precautions/treatment. On my exam, she is awake alert and oriented in no distress. She is oxygenating at 88% on 4L/NC, mild wheezing/diminished lung sounds noted. She only endorses some soreness of her throat but reports feeling improved from a swallowing stand point. No subq air noted at neck. She will be admitted to the hospitalist service for observation. Hospital Course Hospital Course Hospital Course: This is a 62 year old female with a PMhx of COPD on 3L/NC intermittently at home who presented for food impaction. She undewent successful removal of foreign body but has possible aspiration event. Admitted for aspiration event. Developed fever overnight. Concern for sepsis secondary to aspiration pneumonia. Patient clinically improving. White cell count is normalized. Antibiotics were de-escalated to cefepime and Flagyl, will transition to oral antibiotics. Tolerating good p.o. intake. In no distress today. Stable for discharge home. Problems addressed as follows: Sepsis, resolved Aspiration pneumonia Acute on chronic hypoxemic respiratory failure COPD -Status post removal of food bolus by surgery. Had an aspiration event during p rocedure. Increased oxygen requirement. Fever overnight of admission with tachycardia. Initiated on broad-spectrum antibiotics. Weaned to cefepime and Flagyl. White cell count normalized at 7.9. Repeat chest imaging showing no focal consolidation. Was diuresed and will continue Lasix for 5 days after discharge due to concern for volume component adding to her shortness of breath. Continues to require supplemental oxygen on day of discharge higher than her baseline level. Normally wears at night at home. Continue 3 L continuous at this time. Transition to cefdinir and Flagyl p.o. to complete antibiotic course. Stable for discharge home. Continue breathing treatments at home per home regimen. Chronic pain: Continue gabapentin 3 times a day for neuropathy, home oxycodone 4 times a day as needed for pain. Hypothyroid: Continue levothyroxine 25 mcg daily Anxiety: Continue Klonopin 0.5 mg twice daily. GERD/acid suppression: Famotidine 40 mg p.o. twice daily Surgery recommends continuing with a soft diet. Will need follow-up as an outpatient. Likely repeat EGD In 6 to 8 weeks. Spent 30 minutes in discharge counseling, documentation, chart review, and direct care with patient. Exam Data for Last 24 hours Vital signs and Labs for Last 24 Hours: Temp Pulse Resp BP Pulse Ox O2 Del Method O2 Flow Rate 99.6 F 105 H 18 132/79 90 L Nasal Cannula 4 03/02/23 08:00 03/02/23 08:00 03/02/23 08:00 03/02/23 08:00 03/02/23 08:00 03/02/23 09:00 03/02/23 09:00 Laboratory Results - last 24 hr 03/02/23 06:13: WBC 7.9 D, RBC 4.23, Hgb 13.6, Hct 40.9, MCV 96.7, MCH 32.1 H, MCHC 33.2, RDW 13.7, Plt Count 152, MPV 7.9, Neut % (Auto) 76.6, Lymph % (Auto) 17.7, Harris % (Auto) 3.9, Eos % (Auto) 1.5, Baso % (Auto) 0.4, Neut # (Auto) 6.0, Lymph # (Auto) 1.4, Harris # (Auto) 0.3, Eos # (Auto) 0.1, Baso # (Auto) 0.0, Sodium 135 L, Potassium 3.3 L, Chloride 99, Carbon Dioxide 31 H, Anion Gap 8.3, BUN 10, Creatinine 0.60, Estimated Creat Clear 111, Estimated GFR 102, Est GFR ( Amer) 123, Glucose 93, Calcium 8.0 L, Magnesium 1.6, Total Bilirubin 0.8, AST 29, ALT 13, Alkaline Phosphatase 60, Total Protein 6.7, Albumin 3.6, Globulin 3.1, Albumin/Globulin Ratio 1.2 I & O for Last 24 hours: Intake & Output 02/27/23 02/28/23 03/01/23 03/02/23 23:59 23:59 23:59 23:59 Intake Total 200 / 200 3826 / 3826 1080 / 1560 600 / 600 Output Total 200 / 200 890 / 890 0 / 0 Balance 200 / 200 3626 / 3626 190 / 670 600 / 600 Weight 68.039 kg 71.849 kg 68.49 kg 70.477 kg Constitutional Constitutional: no acute distress, average body habitus, chronically ill appearing and cooperative *Routine HEENT Exam Head: Present normocephalic Eye: Present EOMI and PERRL ENT: Present mucous membranes moist *Routine Neck Exam Neck: Present supple; Absent lymphadenopathy *Routine Respiratory Exam Respiratory: Present crackles (in bases), normal respiratory effort and able to speak in complete sentences; Absent accessory muscle use, prolonged expiratory phase, rhonchi or wheezes *Routine Cardiovascular Exam Cardiovascular: Present RRR *Routine Abdominal Exam Abdominal: Present soft and normoactive bowel sounds; Absent tenderness *Routine Rectal Exam Patient deferred: visual exam *Routine Exam Patient deferred: external exam *Routine Extremities Exam Extremities: Absent cyanosis, clubbing or edema *Routine Skin Exam Skin: Present warm; Absent rash *Routine Neurological Exam Neurological: Present alert, oriented X3, CN II-XII intact and moving all extremities; Absent altered mental status Results Data Completed and Pending Labs on day of discharge: Labs from last 24 hours 03/02/23 06:13 WBC 7.9 D RBC 4.23 Hgb 13.6 Hct 40.9 MCV 96.7 MCH 32.1 H MCHC 33.2 RDW 13.7 Plt Count 152 MPV 7.9 Neut % (Auto) 76.6 Lymph % (Auto) 17.7 Harris % (Auto) 3.9 Eos % (Auto) 1.5 Baso % (Auto) 0.4 Neut # (Auto) 6.0 Lymph # (Auto) 1.4 Harris # (Auto) 0.3 Eos # (Auto) 0.1 Baso # (Auto) 0.0 Sodium 135 L Potassium 3.3 L Chloride 99 Carbon Dioxide 31 H Anion Gap 8.3 BUN 10 Creatinine 0.60 Estimated Creat Clear 111 Estimated GFR 102 Est GFR ( Amer) 123 Glucose 93 Calcium 8.0 L Magnesium 1.6 Total Bilirubin 0.8 AST 29 ALT 13 Alkaline Phosphatase 60 Total Protein 6.7 Albumin 3.6 Globulin 3.1 Albumin/Globulin Ratio 1.2 DS: Diagnosis Discharge Diagnosis (1) Pneumonia: Status: Acute Code(s): J18.9 - Pneumonia, unspecified organism Qualifiers: Laterality: unspecified laterality Lung location: unspecified part of lung (2) Esophageal obstruction due to food impaction: Status: Acute Code(s): T18.128A - Food in esophagus causing other injury, initial encounter; W44.F3XA - Food entering into or through a natural orifice, initial encounter (3) Sore throat: Status: Acute Code(s): J02.9 - Acute pharyngitis, unspecified (4) COPD (chronic obstructive pulmonary disease): Status: Chronic Code(s): J44.9 - Chronic obstructive pulmonary disease, unspecified Qualifiers: COPD type: unspecified COPD Qualified Code(s): J44.9 - Chronic obstru ctive pulmonary disease, unspecified Meds Home Medications and Allergies Home Medications Medication Instructions Recorded Confirmed Type albuterol sulfate 90 mcg/actuation 1 inh inhalation Q6HP PRN 01/24/22 02/28/23 Rx aerosol inhaler Shortness Of Breath #1 g aspirin 81 mg tablet,delayed 81 mg PO DAILY Blood Thinner #90 02/08/23 02/28/23 Rx release tabs clonazepam 0.5 mg tablet (Klonopin) 0.5 mg PO BID Anxiety #60 tabs 02/08/23 02/28/23 Rx gabapentin 800 mg tablet 800 mg PO QID Pain #120 tabs 02/08/23 02/28/23 Rx ipratropium 0.5 mg-albuterol 3 mg 3 ml inhalation QID PRN wheezing 02/08/23 02/28/23 Rx (2.5 mg base)/3 mL nebulization #180 mL soln meclizine 25 mg tablet 25 mg PO TID PRN Dizziness Or 02/28/23 02/28/23 History Vertigo ondansetron HCl 4 mg tablet 4 mg PO TID PRN Nausea And Vomiting 02/28/23 02/28/23 History oxycodone-acetaminophen 10 mg-325 1 tab PO QID PRN Pain 02/28/23 02/28/23 History mg tablet cefdinir 300 mg capsule 300 mg PO BID 3 days #5 caps 03/02/23 Rx esomeprazole magnesium 20 mg 20 mg PO BID 30 days #60 caps 03/02/23 Rx capsule,delayed release furosemide 20 mg tablet (Lasix) 20 mg PO DAILY 5 days #5 tabs 03/02/23 Rx metronidazole 500 mg tablet 500 mg PO TID 3 days #9 tabs 03/02/23 Rx New Prescriptions to Start Prescriptions: moralesir Rebekah,Stanislaw esomeprazole magnesium Rebekah,Stanislaw furosemide [Lasix] Rebekah,Stanislaw metronidazole Rebekah,Stanislaw Allergies Allergy/AdvReac Type Severity Reaction Status Date / Time lansoprazole [From PREVACID] Allergy Intermediate Palpitation Verified 12/03/22 14:53 s omeprazole [From PRILOSEC] Allergy Intermediate Palpitation Verified 12/03/22 14:53 s Ppewtii-LHT-CnK Reductase AdvReac Intermediate Muscle Pain Verified 12/03/22 14:53 Inhibitor atorvastatin AdvReac Cramping Verified 12/03/22 14:53 of the Muscles Discharge Plan Disposition Patient Disposition: Home, Self-Care Condition: Fair Discharge Order Discharge Orders: Discharge Order (Routine); Ordered 03/02/23 Ordered By: Stanislaw Welch Follow up Plan Follow up with: Jeronimo Gomez DO [Primary Care Provider] - See instructions Noel Lundy MD [Staff Physician] - 1 week Prescriptions/Medication Reconciliation: New furosemide [Lasix] 20 mg tablet 20 mg PO DAILY 5 Days Qty: 5 0RF cefdinir 300 mg capsule 300 mg PO BID 3 Days Qty: 5 0RF metronidazole 500 mg tablet 500 mg PO TID 3 Days Qty: 9 0RF Continued albuterol sulfate 90 mcg/actuation HFA aerosol inhaler 1 inh IH Q6HP PRN (Reason: Shortness Of Breath) Qty: 1 5RF aspirin 81 mg tablet,delayed release (DR/EC) 81 mg PO DAILY Qty: 90 0RF ipratropium-albuterol 0.5 mg-3 mg(2.5 mg base)/3 mL solution for nebulization 3 ml inhalation QID PRN (Reason: wheezing) Qty: 180 0RF clonazepam [Klonopin] 0.5 mg tablet 0.5 mg PO BID Qty: 60 1RF gabapentin 800 mg tablet 800 mg PO QID Qty: 120 1RF oxycodone-acetaminophen 10-325 mg tablet 1 tab PO QID PRN (Reason: Pain) ondansetron HCl 4 mg tablet 4 mg PO TID PRN (Reason: Nausea And Vomiting) meclizine 25 mg tablet 25 mg PO TID PRN (Reason: Dizziness Or Vertigo) Changed esomeprazole magnesium 20 mg capsule,delayed release(DR/EC) 20 mg PO BID 30 Days Qty: 60 0RF Problem Reconciliation Problems Reviewed?: Yes Patient Discharge Instructions ACTIVITY: Continue current activity and Ambulate as tolerated DIET: other Additional Instructions: Clear liquid diet for 24 hours; Followed by full liquid diet for 48 hours; Followed by soft diet Patient Instructions: Soft Diet, DI for Aspiration Pneumonia, Steakhouse Syndrome, DI for Hypoxia, Full Liquid Diet Providers Primary Care Provider: Jeronimo Gomez Admit Provider: Stanislaw Welch Attending Provider: Stanislaw Welch
[2023-03-02] MEDS: CEFEPIME HCL 1 GM in 0.9 % SODIUM CHLORIDE 50 ML IV (11:01)
[2023-03-02 11:20] VITALS: PULSE 80; PULSE 92; O2SAT 91
--- NOTE | 2023-03-06 11:31 | CARE MANAGER ---
Attempted to contact patient x2 related to hospital discharge. VM was full. REBECCA Barragan
== END 2023-03-02 13:15 | disposition home or self-care (01) | DRG 871 ==
LOC: ER 20:19 → SDC 20:43 → 2ND 22:38
PROVIDERS: Nurse Practitioner Acute Care; Surgery; Admitting Provider Internal Medicine Adolescent Medicine; Emergency Provider Emergency Medicine; PCP Internal Medicine; Visit Provider Internal Medicine Adolescent Medicine
PROC: 0DJ08ZZ Inspection of Upper Intestinal Tract, Via Natural or Artificial Opening Endoscopic (ICD-10-PCS; CPT 43235; principal; 2023-02-27 21:15)
DX: A41.9 Sepsis, unspecified organism (principal); J69.0 Pneumonitis due to inhalation of food and vomit; J96.21 Acute and chronic respiratory failure with hypoxia; J44.0 Chronic obstructive pulmonary disease with (acute) lower respiratory infection; T18.128A Food in esophagus causing other injury, initial encounter; W44.F3XA Food entering into or through a natural orifice, initial encounter; R09.02 Hypoxemia; I73.9 Peripheral vascular disease, unspecified; I10 Essential (primary) hypertension; E03.9 Hypothyroidism, unspecified; Z87.891 Personal history of nicotine dependence; G89.29 Other chronic pain; Z99.81 Dependence on supplemental oxygen; K21.9 Gastro-esophageal reflux disease without esophagitis; F41.9 Anxiety disorder, unspecified
CPT/HCPCS: 43247; 36415; 70491; 71045; 71046; 71250; 80048; 80053; 83605; 83690; 83735; 85007; 85025; 87040; 93005; 94640; 99285; J0692; J0696; J1610; J2405

== ENCOUNTER 2023-03-07 20:30 | Outpatient (CLI) | payer MEDICARE, SELFPAY ==
[2023-03-07 19:42] LABS: Amphetamine/Metha Screen,Urine Negative ng/ml (<1000); Barbiturates Screen,Urine Negative ng/ml (<200)
[2023-03-07 19:43] LABS: Benzodiazepines Screen,Urine Negative ng/ml (<200)
[2023-03-07 19:44] LABS: Cannabinoid Screen,Urine Negative ng/ml (<50); Cocaine Screen,Urine Negative ng/ml (<300)
[2023-03-07 19:45] LABS: Methadone Screen,Urine Negative ng/ml (<300)
[2023-03-07 19:46] LABS: Opiate Screen,Urine Positive ng/ml (<300)
[2023-03-07 19:48] LABS: Phencyclidine Screen,Urine Negative ng/ml (<25)
[2023-03-15 11:36] LABS: Alprazolam Negative (Cutoff=100); Benzodiazepines Positive ng/mL (Cutoff=100); Clonazepam Positive (.); Clonazepam Confirm 431 ng/mL (Cutoff=100); Flurazepam Negative (Cutoff=100); Lorazepam Negative (Cutoff=100); Midazolam Negative (Cutoff=100); Opiates Negative (Cutoff=100); Oxycodone (GC/MS) 2875 ng/mL (Cutoff=100); Oxymorphone (GC/MS) 218 ng/mL (Cutoff=100); Temazepam Negative (Cutoff=100); Triazolam Negative (Cutoff=100)
== END 2023-03-07 23:59 ==
LOC: LAB.DROPOF 20:31
PROVIDERS: Visit Provider Family Medicine
DX: Z79.899 Other long term (current) drug therapy (principal)
CPT/HCPCS: 80307; 80346; 80361; 80365; G0480

== ENCOUNTER 2023-03-28 19:24 | Outpatient (CLI) | payer MEDICARE, SELFPAY ==
[2023-03-28 18:53] LABS: Basophils % 0.7 % (0.1-2.0); Eosinophils # 0.1 K/mm3 (0.0-0.4); Eosinophils % 1.2 % (0.1-12.0); Hematocrit 40.3 % (37.0-47.0); Hemoglobin 13.4 g/dL (12.2-16.2); Lymphocytes # 1.9 K/mm3 (0.7-4.5); Lymphocytes % 37.7 % (10-50); Mean Corpuscular HGB Conc 33.4 g/dL (31.8-35.4); Mean Corpuscular Hemoglobin 31.2 pg (27.0-31.2); Mean Corpuscular Volume 93.6 fl (81-99); Mean Platelet Volume 8.4 fl (7.4-10.4); Monocytes # 0.4 K/mm3 (0.1-1.0); Monocytes % 7.4 % (1.7-9.3); Neutrophils # 2.7 K/mm3 (1.8-7.8); Neutrophils % 53.1 % (37.0-80.0); Platelet Count 191 K/mm3 (142-424); Red Blood Count 4.31 M/mm3 (4.20-5.40); Red Cell Distribution Width 13.3 % (11.5-17.5); White Blood Count 5.1 K/mm3 (4.8-10.8)
[2023-03-28 19:05] LABS: Alanine Aminotransferase 14 U/L (12-78); Albumin Level 3.7 g/dl (3.5-5.0); Albumin/Globulin Ratio 1.2 (1.1-1.8); Alkaline Phosphatase 96 U/L (38-126); Anion Gap 11.2 mEq/L (5-15); Aspartate Amino Transferase 26 U/L (14-36); Bilirubin,Total 0.3 mg/dl (0.2-1.3); Blood Urea Nitrogen 9 mg/dl (7-17); Calcium 9.1 mg/dl (8.4-10.2); Carbon Dioxide 32 mmol/L (22.0-30.0); Chloride 99 mmol/L (98-107); Chol/HDL Ratio 8.2 (1-3.5); Cholesterol 213 mg/dl (140-200); Estimated Glomerular Filt Rate 85 ml/min (>60); GFR (African American) 103 ML/MIN (>60); Glucose 90 mg/dl (74-100); HDL Cholesterol 26 mg/dl (40-60); Potassium 4.2 mmoL/L (3.5-5.1); Sodium 138 mmol/L (136-145); Total Protein,Serum 6.7 g/dl (6.3-8.2)
[2023-03-28 19:10] LABS: Triglycerides 513 mg/dl (30-150)
[2023-03-28 19:16] LABS: Direct LDL Cholesterol 83.01 mg/dL (100-129)
[2023-03-28 19:27] LABS: Creatinine,Urine Random 77 mg/dL (Not Estab.)
[2023-03-28 19:35] LABS: Thyroid Stimulating Hormone 3.56 uIU/mL (0.465-4.68)
[2023-03-28 22:09] LABS: Microalbumin/Creatinine Ratio 14.4
== END 2023-03-28 23:59 ==
LOC: LAB.DROPOF 19:24
PROVIDERS: PCP Internal Medicine; Visit Provider Internal Medicine
DX: E05.90 Thyrotoxicosis, unspecified without thyrotoxic crisis or storm (principal); R53.83 Other fatigue; E03.9 Hypothyroidism, unspecified; E78.5 Hyperlipidemia, unspecified
CPT/HCPCS: 80053; 80061; 82043; 82570; 84443; 85025

== ENCOUNTER 2023-04-08 13:09 | Outpatient (CLI) | payer MEDICARE, SELFPAY ==
--- NOTE | 2023-04-08 13:20 | CA_ITS ---
FINAL REPORT TECHNIQUE: Color Doppler, duplex Doppler and del real scale sonography of the bilateral neck vasculature was performed. Velocities were measured in the carotid arteries. Stenosis evaluation based on velocity criteria. CLINICAL HISTORY: bruit, HLD COMPARISON: None FINDINGS: The peak systolic velocity of the right common carotid artery is 150 cm/sec and internal carotid artery 115 cm/sec. The diastolic velocity in the internal carotid artery is 23 cm/sec. The ICA/CCA ratio is 0.8. Visually, a small amount of plaque is seen. These findings are consistent with less than 50% stenosis. The external carotid artery is patent. The right vertebral artery is patent with antegrade flow, although flow within the right vertebral artery was difficult to measure.. The peak systolic velocity of the left common carotid artery is 134 cm/sec and internal carotid artery 90 cm/sec. The diastolic velocity in the internal carotid artery is 28 cm/sec. The ICA/CCA ratio is 0.7. Visually, a small amount of plaque is seen. These findings are consistent with less than 50% stenosis. The external carotid artery is patent. The left vertebral artery is patent with antegrade flow. IMPRESSION: No evidence of significant carotid stenosis, although the study is a limited exam as the vessels are very tortuous. Bilateral patent vertebral arteries although was difficult to visualize flow in the right vertebral artery. If indicated, CTA or MRA would be helpful for further evaluation. Reviewed, Interpreted and Dictated by Delvis Ruiz MD Transcribed by Chloé Perez Authenticated and [facility]
--- NOTE | 2023-04-08 14:12 | XR_ITS ---
FINAL REPORT CLINICAL HISTORY: .fall a few weeks ago COMPARISON: None FINDINGS: AP, oblique, and lateral views of the left wrist were obtained. There is no prior exam for comparison. There is no acute fracture or dislocation. The joint spaces are preserved. There is a questionable foreign body in the superficial soft tissues measuring slightly over 2 mm in length. This is seen on the radial and volar aspect of the wrist. IMPRESSION: No acute osseous abnormality of the left wrist. Questionable foreign body as described above. Reviewed, Interpreted and Dictated by Delvis Ruiz MD Transcribed by Chloé Perez Authenticated and [facility]
== END 2023-04-08 23:59 ==
LOC: RT 13:10
PROVIDERS: PCP Internal Medicine; Visit Provider Internal Medicine
DX: R09.89 Other specified symptoms and signs involving the circulatory and respiratory systems (principal); M25.532 Pain in left wrist
CPT/HCPCS: 73110; 93880

== ENCOUNTER 2023-08-12 11:51 | Outpatient (CLI) | payer MEDICARE, SELFPAY ==
[2023-08-12 19:30] LABS: Cholesterol 179 mg/dl (140-200); HDL Cholesterol 36 mg/dl (40-60); Triglycerides 268 mg/dl (30-150); VLDL Cholesterol 54 mg/dL (0-40)
[2023-08-12 19:41] LABS: Direct LDL Cholesterol 88.05 mg/dL (100-129)
== END 2023-08-12 23:59 | disposition home or self-care (01) ==
LOC: LAB.DROPOF 08-13 11:51
PROVIDERS: PCP Internal Medicine; Visit Provider Internal Medicine
DX: E78.5 Hyperlipidemia, unspecified (principal)
CPT/HCPCS: 80061

== ENCOUNTER 2023-12-31 14:50 | Outpatient (CLI) | payer MEDICAID, SELFPAY ==
[2023-12-31 20:07] LABS: HIV (1&2) Antibody Rapid NONREACTIVE (NONREACTIVE)
[2023-12-31 21:27] LABS: 25-OH Vitamin D, Total 16.7 ng/mL (30-100)
[2024-01-02 05:15] LABS: HBsAg Screen Negative (Negative); HCV Ab Non Reactive (Non Reactive); Hep A Ab, IGM Negative (Negative); Hep B Core Ab, IgM Negative (Negative)
== END 2023-12-31 23:59 | disposition home or self-care (01) ==
LOC: LAB.DROPOF 01-01 10:56
PROVIDERS: PCP Internal Medicine; Visit Provider Internal Medicine
DX: R53.83 Other fatigue (principal); Z11.59 Encounter for screening for other viral diseases
CPT/HCPCS: 80074; 82306; 87389

== ENCOUNTER 2024-03-24 12:04 | Outpatient (CLI) | payer MEDICAID, SELFPAY ==
[2024-03-24 12:46] LABS: Basophils % 0.4 % (0.1-2.0); Eosinophils # 0.1 K/mm3 (0.0-0.4); Eosinophils % 1.3 % (0.1-12.0); Hematocrit 36.6 % (37.0-47.0); Hemoglobin 12.2 g/dL (12.2-16.2); Lymphocytes # 1.5 K/mm3 (0.7-4.5); Lymphocytes % 29.1 % (10-50); Mean Corpuscular HGB Conc 33.3 g/dL (31.8-35.4); Mean Corpuscular Hemoglobin 31.3 pg (27.0-31.2); Mean Corpuscular Volume 93.8 fl (81-99); Mean Platelet Volume 9.1 fl (7.4-10.4); Monocytes # 0.4 K/mm3 (0.1-1.0); Monocytes % 7.7 % (1.7-9.3); Neutrophils # 3.2 K/mm3 (1.8-7.8); Neutrophils % 61.1 % (37.0-80.0); Platelet Count 178 K/mm3 (142-424); Red Cell Distribution Width 12.6 % (11.5-17.5); White Blood Count 5.3 K/mm3 (4.8-10.8)
[2024-03-24 13:39] LABS: C-Reactive Protein 7.9 mg/L (0-4)
== END 2024-03-24 23:59 | disposition home or self-care (01) ==
LOC: LAB 12:05
PROVIDERS: PCP Internal Medicine; Visit Provider Internal Medicine
DX: S91.309A Unspecified open wound, unspecified foot, initial encounter (principal)
CPT/HCPCS: 36415; 85025; 86140

== ENCOUNTER 2024-06-26 12:59 | Outpatient (CLI) | payer MEDICAID, SELFPAY ==
--- NOTE | 2024-06-26 13:00 | CT_ITS ---
FINAL REPORT TECHNIQUE: Thin section axial images were obtained from the lung apices to the upper abdomen by computed tomography. Reformatted images were obtained and reviewed. This study was performed with techniques to keep radiation doses al low as reasonably achievable (ALARA). Individualized dose reduction techniques using automated exposure control or adjustment of mA and/or kV according to the patient's size were employed. CLINICAL HISTORY: lung cancer screening former smoker quit 2 years ago, 1ppd x 42 years COMPARISON: CT of the chest 02/27/2023 FINDINGS: CHEST CT LOW DOSE 63-year-old female, former smoker who quit 2 years ago, 69-gume-anrt history CTDI vol (mGy): 2.90 DLP (mGy-cm): 96.38 There is no axillary adenopathy. There is no mediastinal or hilar mass or adenopathy. A few scattered calcified mediastinal nodes are present. The heart is normal in size. Moderate coronary artery calcifications are noted. Calcified granulomas are present in the left lung base. There is no pericardial or pleural effusion. Lung window images demonstrate no suspicious infiltrate or nodule. Limited images of the upper abdomen are unremarkable. IMPRESSION: Lung-RADS category 1 S, the S designation for coronary artery calcifications. Recommend 12 month follow up low dose chest CT. Reviewed, Interpreted and Dictated by Delvis Ruiz MD Transcribed by Chloé Perez Authenticated and [facility]
== END 2024-06-26 23:59 | disposition home or self-care (01) ==
LOC: RAD 13:00
PROVIDERS: PCP Internal Medicine; Visit Provider Internal Medicine
DX: Z12.2 Encounter for screening for malignant neoplasm of respiratory organs (principal); J84.10 Pulmonary fibrosis, unspecified; Z87.891 Personal history of nicotine dependence
CPT/HCPCS: 71271

== ENCOUNTER 2024-08-03 14:31 | Outpatient (CLI) | payer MEDICAID, SELFPAY | END 2024-08-03 23:59 | disposition home or self-care (01) | LOC: RT 14:32 | PROVIDERS: PCP Internal Medicine; Visit Provider Internal Medicine | DX: I47.10 Supraventricular tachycardia, unspecified (principal) | CPT/HCPCS: 93225; 93227 ==

== ENCOUNTER 2024-08-05 17:31 | Outpatient (CLI) | payer MEDICAID, SELFPAY ==
--- OUTSIDE RECORDS SUMMARY | 2024-05-23 17:30 | XMS_ITS ---
Author Organization [facility] Address [address] [place] [address] Care Team Providers Care Credit Adjuster Name Role Phone Stanislaw Wood Primary Care Provider [phone] Stanislaw Welch Unavailable [phone] Migration, Provider Unavailable Unavailable Allergies Allergen (clinical drug ingredient) Drug/Non Drug Allergy documented on EMR Reaction Allergy Type Onset Date Status lansoprazole Prevacid chest tightness Drug Allergy Active doxycycline Doxycycline Unknown Drug Allergy Act harper hydroxyzine hydrOXYzine itching Drug Allergy Act harper REASON FOR VISIT [facility] To [facility] Conversion Encounter Medications Medication SIG (Take, Route, Frequency, Duration) Notes Start Date End Date Status Anoro Ellipta 62.5 MCG-25 MCG/INH 1 PUFF(S) INHALED ONCE A DAY for 30 DAY(S) *Please review and pick correct strength-formulation from [facility] options. If intended option is not shown, discontinue and re-order from Quick Search* Active NexIUM 20 MG 1 cap(s) orally once a day for 30 days Active Ventolin HFA 108 (90 Base) MCG/ACT 2 puff(s) inhaled 4 times a day as needed for COPD Active HYDROcodone-Acetami nophen 7.5-325 MG 1 tab(s) orally QID 06/22/2016 Act harper Meclizine HCl 25 MG 1 tab(s) orally tid PRN Active PORTABLE OXYGEN (OXYLITE) DX: COPD *Please review for potential replacement for e-prescription and drug interaction check* 09/30/2019 Active Encounters Encounter Location Date Provider Diagnosis [facility] [address] [place] [address] 05/23/2024 Provider Migration Plan Of Treatment Medication Medication Name Sig Start Date Stop Date Notes NexIUM 20 MG 1 cap(s) orally once a day for 30 days Meclizine HCl 25 MG 1 tab(s) orally tid PRN Progress Notes * Gina ECKERT CDOB:1960 (63 yo F)Acc No.[id number]:05/23/2024 Patient: Gina GUEVARA Provider: Abhilash sosa Migration :1960 A ge:63 Y S ex:Female Date:05/23/2024 Address:[place], [id number] Pcp:Stanislaw Wood Subjective: * Chief Complaints: * 1 . [facility] Conversion Encounter. * Medical History: * Medications: T aking Ventolin HFA 108 (90 Base) MCG/ACT Aerosol Solution 2 puff(s) inhaled 4 times a day as needed for COPD , Taking HYDROcodone-Acetaminophen 7.5-325 MG Tablet 1 tab(s) orally QID , Taking PORTABLE OXYGEN (OXYLITE) DX: COPD , Notes to Pharmacist: *Please review for potential replacement for e-prescription and drug interaction check*, Taking Anoro Ellipta 62.5 MCG-25 MCG/INH POWDER 1 PUFF(S) INHALED ONCE A DAY , Notes to Pharmacist: *Please review and pick correct strength-formulation from [employer] options. If intended option is not shown, discontinue and re-order from Quick Search* * Allergies: D oxycycline, Prevacid: chest tightness, hydrOXYzine: itching. Objective: * Vitals: Assessment: Plan: * Treatment: * * Electronic signature of Prov ider Migration on 08/05/2024 at 05:34 PM EDT Sign off status: Pending * Provider: Abhilash sosa Migration Date: 0 05/23/2024 Generated for Bon torrez/Michi/eTransmitting on: 0 08/05/2024 05:34 PM EDT
--- OUTSIDE RECORDS SUMMARY | 2024-08-05 17:35 | XMS_ITS | Patient Health Record ---
Author Organization [facility] Address [address] [place] [address] Care Team Providers Care Log Buncher Name Role Phone Stanislaw Wood Primary Care Provider [phone] Stanislaw Welch Unavailable [phone] Migration, Provider Unavailable Unavailable Allergies Allergen (clinical drug ingredient) Drug/Non Drug Allergy documented on EMR Reaction Allergy Type Onset Date Status lansoprazole Prevacid chest tightness Drug Allergy Active doxycycline Doxycycline Unknown Drug Allergy Act harper hydroxyzine hydrOXYzine itching Drug Allergy Act harper Medications Medication SIG (Take, Route, Frequency, Duration) Notes Start Date End Date Status Anoro Ellipta 62.5 MCG-25 MCG/INH 1 PUFF(S) INHALED ONCE A DAY for 30 DAY(S) *Please review and pick correct strength-formulation from [employer] options. If intended option is not shown, discontinue and re-order from Quick Search* Active NexIUM 20 MG 1 cap(s) orally once a day for 30 days Active Ventolin HFA 108 (90 Base) MCG/ACT 2 puff(s) inhaled 4 times a day as needed for COPD Active HYDROcodone-Acetami nophen 7.5-325 MG 1 tab(s) orally QID 06/22/2016 Act harper PORTABLE OXYGEN (OXYLITE) DX: COPD *Please review for potential replacement for e-prescription and drug interaction check* 09/30/2019 Active Meclizine HCl 25 MG 1 tab(s) orally tid PRN Active Social History Tobacco Use: Social History Observation Description Date Details (start date - stop date) Current Smoker NA - NA Smoking: Question Answer Notes Are you a: current smoker How often do you smoke cigarettes? every day How many cigarettes a day do you smoke? 11- Section Notes: in 2004 in 2004 in 2004 in 2004 in 2004 in 2004 in 2004 in 2004 in 2004 in 2004 in 2004 in 2004 in 2004 in 2004 Problems Problem Type SNOMED Code ICD Code Onset Dates Problem Status W/U Status Risk Notes Problem 999548365 Mixed hyperlipidemia (E78.2) Active confirmed Problem 75489158 Generalized anxiety disorder (F41.1) Active confirmed Problem 411134818 Chronic pain syndrome (G89.4) Active confirmed Problem 24649600 Fibromyalgia (M79.7) Active confirmed Problem 682499317 Tobacco use (Z72.0) Active confirmed Problem Vitamin D deficiency (E55.9) Active confirmed Problem 72271128 HTN (hypertension), benign (I10) Active confirmed Problem 801599895 GERD without esophagitis (K21.9) Active confirmed Problem 28488456 Hypertension, essential (I10) Active confirmed Problem 90161803 Restless leg syndrome (G25.81) Active confirmed Problem 035681352716336 Right hip pain (M25.551) Active confirmed Problem 175027643 COPD exacerbatio n (J44.1) Active confirmed Problem 46564453 Degenerative dis c disease, cervical (M50.30) Active confirmed Problem 293587610 Abnormal mammogr am (R92.8) Active confirmed Problem 698690143 Skin tags, multiple acquired (L91.8) Active confirmed Encounters Encounter Location Date Provider Diagnosis [facility] [address] [place] [address] 05/23/2024 Provider Migration Plan Of Treatment Pending Test Test Name Order Date X-Lipid Profile 05/08/2007 MRI : Lumbosacral Spine 08/25/2008 X ray : Spines, Lumbosacral 05/29/2007 X ray : Spines, Lumbosacral 06/21/2011 Ultrasound : Breast, Right 09/14/2016 MRI : Shoulder, Left 10/22/2008 X ray : Spines, Cervical 05/29/2007 X ray : Spines, Dorsal 05/29/2007 X ray : Hip, Bilateral 06/21/2011 N-ALT (SGPT) 05/08/2007 N-Clostridium dificile Toxin 09/08/2007 Physical Therapy 11/19/2008 Mammogram : Bilateral 01/10/2016 Mammogram : Bilateral 09/26/2017 Mammogram : Bilateral 03/26/2013 H-CBC with AUTO DIFF 10/08/2008 H-CBC with AUTO DIFF 04/26/2014 H-CBC with AUTO DIFF 05/11/2011 H-URINE CULTURE 05/23/2010 H-CMP 05/23/2010 H-CMP 05/11/2011 H-CMP 04/26/2014 H-CMP 10/08/2008 H-CMP 05/20/2009 H-LIPID PANEL 05/20/2009 H-LIPID PANEL 07/15/2009 H-LIPID PANEL 10/08/2008 H-LIPID PANEL 04/26/2014 H-LIPID PANEL 05/11/2011 H-LIPID PANEL 05/23/2010 H-VIT D, 25-HYDROXY 09/14/2016 H-VIT D, 25-HYDROXY 04/26/2014 H-URINALYSIS 05/23/2010 Ultrasound : Soft Tissue 09/14/2016 M-Comprehensive Metabolic Panel 09/27/19 19 M-Lipid Panel 09/26/2018 M-Vitamin D 25 Hydroxy 09/26/2018 Insurance Providers Payer Name Payer Address Payer Phone Subscriber Number Group Number Insured Name Patient Relationship to Insured Coverage Start Date Coverage End Date [employer] [address] [address] [place] [address] [id number] Gina Eckert Self - patient is the insured Medications Administered Medication Instructions Date of Administration Dosage Notes Kenalog 40mg 06/13/2017 40 mg Triamcinolone Acetonide 40mg Injection 12/29/2018 1 mL Medical (General) History Medical History History ICD Code fibromyalgia depression migraines hypercholestrolemia Esophageal reflux Colon pylop X 1 diverticulums hemorrhoids normal colonoscopy 2009 patellofemoral degeneration (xray 2006) Cspine DDD COPD Surgical History Surgery Date(Month/Year) miscarriage left thumb EGD 2016 Hospitalization History Reason Date(Month/Year) COPD 09/2019
== END 2024-08-05 23:59 | disposition home or self-care (01) ==
LOC: RT 17:32
PROVIDERS: PCP Internal Medicine; Visit Provider Internal Medicine
DX: I49.1 Atrial premature depolarization (principal); I47.19 Other supraventricular tachycardia; I49.3 Ventricular premature depolarization
CPT/HCPCS: 93270

== ENCOUNTER 2024-09-14 15:16 | Outpatient (RCR) | payer MEDICAID, SELFPAY ==
--- NOTE | 2024-09-14 16:22 | HMH.PTOPWND ---
Rehab Outpt Wound Evaluation Rehab OP Wound Evaluation Start: 09/14/24 16:03 Freq: Status: Active Protocol: Document 09/14/24 16:04 PEPPER (Rec: 09/14/24 16:22 PEPPER [id number]) E-signed By Josh Gray, PT Subjective/History History History This is the initial PT wound care eval for Gina Eckert, 63 yowf who presents with c/o chronic, poor healing wound to the L lower leg. She is unsure of what caused the wound, but reports it has been present for at least 2-3 mos. She reports increased Pain in L LE at this time with tenderness to palpation in the isidro- wound skin. She has PMH of PAD with claudication, chronic low back pain, fibromyalgia migraines, tobacco use disorder. Subjective Subjective Pain currently 6/10 L lower leg, 2/4 TTP in isidro-wound skin. Moderate erythema noted to L lower leg. Wound Eval Wound Left Lateral Cotton Wound Type PAD ulcer Is This a Chronic Yes Wound Wound Length (cm) 1.4 Wound Width (cm) 1.3 Wound Depth (cm) 0.5 Wound Bed Appearance Beefy Red,Yellow Percentage 25 Granulated (%) Percentage of Slough 75 (%) Wound Margins Well Defined Description Surrounding Tissue Bright Red Appearance Drainage Description Serous Drainage Amount Small Wound Topical Saline Irrigant Solution/Irrigant Primary Dressing Silver Dressing Comment opticell Ag x 2 Wound Secondary Composite Dressing Type Comment optifoam gentle SA Wound Debridement Sharps,Forceps,Gauze,Mechanical Method Wound Debridement Minimal Amount of Tissue Removed Dressing Change Tolerated Well Patient Tolerance Villanueva-Torres Wound Assessment Tool Assessment Wound size 1=Length x Width <4 sq cm Wound depth 4=Obscured by necrosis Wound edges 4=Well-defined, not attached to base, rolled under, thickened Wound undermining 1=None present Necrotic tissue type 3=Loosely adherent yellow slough Necrotic tissue 4=>50% and <75% of wound covered amount Exudate type 4=Serous: thin, watery, clear Exudate amount 3=Small Skin color 2=Bright red &/or blanches to touch surrounding wound Peripheral tissue 2=Non-pitting edema extends <4 cm around wound edema Peripheral tissue 1=None present induration Granulation tissue 3=Bright, beefy red; <75% & > 25% of wound filled Epithelialization 5= < 25% wound covered Wound assessment 37 total score Wound Problems/Impairments Impairments Problems/ Palpation Tenderness,Impaired Shower/Bathing,Impaired Impairmments Household Care,Impaired Recreational Activities,Wound Care Needs,Subjective C/O Pain,Impaired Self Care/Self Management Prognosis Rehab Potential Good Comment Signs and symptoms consistent with PAD wound of the L lateral lower leg. Skilled therapy is indicated in order to reduce overall wound surface area to improve pt QOL. Clinical Impression Consistent with Yes Diagnosis Consistent with Also Additional details: S81.802 unspecified left lower leg wound. Short Term Goals Number of Weeks 4 Decrease Wound Area Yes: by 25% Decrease Subjective Yes: 5/10 L lower leg C/O Pain Correction Goals Number of Weeks 8 Decreased Palpation Yes: 1/4 L lower leg isidro-wound skin Tenderness Decrease Wound Area Yes: by 75% Decrease Subjective Yes: 3/10 L lower leg C/O Pain Patient to be Ind w/ Yes Home Wound Care/ Dressing Changes Outpatient Therapy Plan of Care Treatment Plan May Include Therapeutic Exercise Yes Including Home Exercise Program Manual Therapy Yes Techniques Neuromuscular Re- Yes education Therapeutic Yes Activities to Return to Previous Functional/Work Level ADL/Self Care Yes Education Ultrasound/ Yes Phonophoresis Wound Care Yes Eval/Re-Eval Yes Frequency Times per week 2 Duration Number of Weeks 8 Addendums This patient is a No candidate for social or vocational rehab ? Patient/Guardian Yes verbally acknowledges understanding of treatment program and consents to further treatment? Patient/Guardian Yes verbally acknowledges understanding of diagnosis, prognosis and goals for treatment? Eval Complexity PT Charges 59265 - High Complexity PHYSICIAN CERTIFICATION: I certify the specified therapy services for Gina Eckret are required, authorized, and reviewed every 30 days.
== END 2024-09-14 23:59 | disposition home or self-care (01) ==
LOC: PT 15:16
PROVIDERS: PCP Internal Medicine; Visit Provider Internal Medicine
DX: L98.9 Disorder of the skin and subcutaneous tissue, unspecified (principal)
CPT/HCPCS: 97163